=== PATIENT | male | born 1985 | race Two or more races ===

== ENCOUNTER 2018-04-23 12:11 | Emergency (ER) | payer MEDICAID, OTHER ==
[2018-04-23 12:44] VITALS: BP 141/85; PULSE 89; RESP 18; TEMP 98.1
--- NOTE | 2018-04-23 13:47 | XR ---
EXAMINATION TYPE: XR chest 2V DATE OF EXAM: 04/23/2018 COMPARISON: NONE HISTORY: Productive cough and congestion TECHNIQUE: Frontal and lateral views of the chest are obtained. FINDINGS: There is diffuse minimal peribronchial cuffing. There is no focal air space opacity, pleura l effusion, or pneumothorax seen. The cardiac silhouette size is within normal limits. The osseous structures are intact. Curvilinear opacity near the left cardiophrenic angle is likely related to ar tifact as this is not persistent on the lateral view. IMPRESSION: No focal consolidation to suggest pneumonia. Minimal peribronchial cuffing may relate to bronchitis.
--- NOTE | 2018-04-23 14:03 | ED ---
General Adult HPI - General Chief complaint: Upper Respiratory Infection Stated complaint: cough, sinus pressure Time Seen by Provider: 04/23/18 14:02 Source: patient, RN notes reviewed Mode of arrival: ambulatory Limitations: no limitations - History of Present Illness Initial comments: 32-year-old male presents to the emergency department for a chief complaint of productive cough 3 weeks. Patient states his fiance had been sick as well as his child. He states that shortly after the persistent nasal congestion as well for the past 3 weeks. He denies any hemoptysis, recent travel, leg swelling. Patient does have a history of pulmonary embolisms, currently on Coumadin. He denies any significant shortness of breath or chest pain. Patient states he had a low-grade fever for about 2 days when this first started 3 weeks ago but has not had a fever since that time. Patient has no other complaints at this time including shortness of breath, chest pain, abdominal pain, nausea or vomiting, headache, or visual changes. - Related Data Home Medications Medication Instructions Recorded Confirmed Warfarin [Coumadin] 5 mg PO SUMO 04/12/17 04/12/17 Warfarin [Coumadin] 7.5 mg PO TUWETHFRSA 04/12/17 04/12/17 Previous Rx's Medication Instructions Recorded Azithromycin [Zithromax Z-pack] 250 mg PO DIRECTED #6 tab 04/23/18 Allergies Allergy/AdvReac Type Severity Reaction Status Date / Time Penicillins Allergy Anaphylaxis Verified 04/23/18 12:43 Sulfa (Sulfonamide Allergy Itching Verified 04/23/18 12:43 Antibiotics) Review of Systems ROS Statement: Those systems with pertinent positive or pertinent negative responses have been documented in the HPI. ROS Other: All systems not noted in ROS Statement are negative. Past Medical History Past Medical History: Pulmonary Embolus (PE) Additional Past Medical History / Comment(s): 2010 BLOOD CLOT AFTER HEMORRHOID SX, HAD AN IVC FILTER INSERTED BUT SHORTLY AFTER THAT WAS FOUND TO HAVE 2 BLOOD CLOTS IN EACH LUNG." IT WAS FOUND THAT THE IVC FILTER WAS MISS PLACED AND DID' NT FUNCTION INTENDED.SO PT WAS CONTINUED ON BLOOD THINNERS. "I WAS TESTED FOR FACTOR FIVE-THEY DID A HOLE PANEL, IT WAS NEG. MOM AND AUNT HAVE LACK OF ABILTY TO CLOT.HX BIPOLAR, PNE X3, SEASONAL ALLERGIES History of Any Multi-Drug Resistant Organisms: None Reported Additional Past Surgical History / Comment(s): IVC filter Past Anesthesia/Blood Transfusion Reactions: Motion Sickness Past Psychological History: Bipolar Smoking Status: Never smoker Past Alcohol Use History: None Reported Past Drug Use History: None Reported - Past Family History Father History Unknown: Yes Mother Additional Family Medical History / Comment(s): "LACK OF ABILTY TO CLOT", SMOKER , ALCOHOLIC, ANX/DEPRESSION, GLAUCOMA, BREAST CA, General Exam Limitations: no limitations General appearance: alert, in no apparent distress Head exam: Present: atraumatic, normocephalic, normal inspection Eye exam: Present: normal appearance, PERRL, EOMI. Absent: scleral icterus, conjunctival injection, periorbital swelling ENT exam: Present: normal exam, normal oropharynx, mucous membranes moist, TM's normal bilaterally (nonerythematous, nonbuldging.), normal external ear exam Neck exam: Present: normal inspection, full ROM. Absent: tenderness, meningismus, lymphadenopathy Respiratory exam: Present: wheezes (minimal wheeze noted). Absent: respiratory distress, rales, rhonchi, stridor Cardiovascular Exam: Present: regular rate, normal rhythm, normal heart sounds. Absent: systolic murmur, diastolic murmur, rubs, gallop, clicks GI/Abdominal exam: Present: soft, normal bowel sounds. Absent: distended, tenderness, guarding, rebound, rigid Extremities exam: Absent: calf tenderness (no calf tenderness, erythema, edema, or pain, negative huang sign) Neurological exam: Present: alert, oriented X3, CN II-XII intact Psychiatric exam: Present: normal affect, normal mood Course Vital Signs 04/23/18 12:40 Temperature 98.1 F Pulse Rate 89 Respiratory 18 Rate Blood Pressure 141/85 O2 Sat by Pulse 99 Oximetry Medical Decision Making - Medical Decision Making 32-year-old male presents to the emergency department for a chief complaint of productive cough and nasal congestion 3 weeks. Patient states he is coughing up phlegm. He denies history of smoking. He admits to childhood exercise- induced asthma but denies any asthma in adulthood. Patient does have a history of pulmonary embolisms with an IVC filter placed and on Coumadin. Patient states this does not feel like a pulmonary embolism. He states he is not short of breath or has any significant chest pain. No recent travel, leg swelling, hemoptysis. Vitals are within acceptable limits, pulse 89, [id number], 99% on room air. Blood pressure mildly hypertensive, patient asymptomatic. On exam patient is well-appearing. Respirations are even and unlabored. He is wearing a mask. Lungs have minimal wheeze noted. Chest x-ray shows no focal consolidation to suggest pneumonia. There is minimal peribronchial cuffing that may relate bronchitis. There is an opacity near the left cardiophrenic angle that is likely artifact. Report and image were reviewed by myself and Dr. Zacarias. At this time as patient has had symptoms for 3 weeks he will be treated with antibiotics. He has Mucinex and other [id number] medications at home that he will use as well. He will follow up with primary care. He should wear to return here if he has any worsening symptoms such as shortness of breath. Discussed with dr zacarias. Disposition Clinical Impression: Cough Disposition: HOME SELF-CARE Condition: Good Instructions: Upper Respiratory Infection (ED) Additional Instructions: Please take antibiotic as directed. Please follow-up with primary care in 1-2 days. Return to the emergency department if you have any worsening symptoms. Prescriptions: Azithromycin [Zithromax Z-pack] 250 mg PO DIRECTED #6 tab Is patient prescribed a controlled substance at d/c from ED?: No Referrals: Arthur Malone MD [Primary Care Provider] - 1-2 days Time of Disposition: 14:23
== END 2018-04-23 15:08 | disposition home or self-care (01) ==
LOC: EC 12:11
DX: R05 Cough (principal); R03.0 Elevated blood-pressure reading, without diagnosis of hypertension; R06.2 Wheezing; R09.81 Nasal congestion; Z79.01 Long term (current) use of anticoagulants; Z88.0 Allergy status to penicillin; Z88.2 Allergy status to sulfonamides; Z86.711 Personal history of pulmonary embolism; Z95.828 Presence of other vascular implants and grafts
CPT/HCPCS: 71046; 99283

== ENCOUNTER 2018-06-10 13:04 | Emergency (ER) | payer MEDICAID, OTHER ==
[2018-06-10 13:13] VITALS: BP 129/92; PULSE 94; RESP 18; TEMP 98.2
--- NOTE | 2018-06-10 13:28 | ED ---
Fall HPI - General Chief Complaint: Fall Stated Complaint: [facility]-Fall Time Seen by Provider: 06/10/18 13:18 Source: patient Mode of arrival: ambulatory - History of Present Illness Initial Comments: This is a 33-year-old male the ER status post fall. Patient is on Coumadin. Patient fell backwards from standing landing on his buttocks falling back and hitting his head. With some neck pain. Symptoms occurred about 4 hours prior to arrival. Patient has no loss of bowel or bladder lower does feel like he has to bowel movement. Patient is and laboratory is able to ambulate but feels better when he is not moving. Patient has not taken any Motrin or Tylenol currently at this point. MD Complaint: fall -: hour(s) (5) Fall From: standing When Fall Occurred: 4-6 hours [employer] Fall Witnessed: yes, by bystander Place Fall Occurred: work Loss of Consciousness: none Prolonged Down Time?: no Symptoms Prior to Fall: none Location: head, back, pelvis, buttocks Severity: moderate Severity scale (1-10): 4 Quality: dull, aching Context: tripped/slipped Associated Symptoms: denies - Related Data Home Medications Medication Instructions Recorded Confirmed Warfarin [Coumadin] 5 mg PO SUMO 04/12/17 04/12/17 Warfarin [Coumadin] 7.5 mg PO TUWETHFRSA 04/12/17 04/12/17 Previous Rx's Medication Instructions Recorded Azithromycin [Zithromax Z-pack] 250 mg PO DIRECTED #6 tab 04/23/18 Allergies Allergy/AdvReac Type Severity Reaction Status Date / Time Penicillins Allergy Anaphylaxis Verified 06/10/18 13:13 Sulfa (Sulfonamide Allergy Itching Verified 06/10/18 13:13 Antibiotics) Review of Systems ROS Statement: Those systems with pertinent positive or pertinent negative responses have been documented in the HPI. ROS Other: All systems not noted in ROS Statement are negative. Past Medical History Past Medical History: Pulmonary Embolus (PE) Additional Past Medical History / Comment(s): 2010 BLOOD CLOT AFTER HEMORRHOID SX, HAD AN IVC FILTER INSERTED BUT SHORTLY AFTER THAT WAS FOUND TO HAVE 2 BLOOD CLOTS IN EACH LUNG." IT WAS FOUND THAT THE IVC FILTER WAS MISS PLACED AND DID' NT FUNCTION INTENDED.SO PT WAS CONTINUED ON BLOOD THINNERS. "I WAS TESTED FOR FACTOR FIVE-THEY DID A HOLE PANEL, IT WAS NEG. MOM AND AUNT HAVE LACK OF ABILTY TO CLOT.HX BIPOLAR, PNE X3, SEASONAL ALLERGIES History of Any Multi-Drug Resistant Organisms: None Reported Additional Past Surgical History / Comment(s): IVC filter Past Anesthesia/Blood Transfusion Reactions: Motion Sickness Past Psychological History: Bipolar Smoking Status: Never smoker Past Alcohol Use History: None Reported Past Drug Use History: None Reported - Past Family History Father History Unknown: Yes Mother Additional Family Medical History / Comment(s): "LACK OF ABILTY TO CLOT", SMOKER , ALCOHOLIC, ANX/DEPRESSION, GLAUCOMA, BREAST CA, General Exam Limitations: no limitations General appearance: alert, in no apparent distress Head exam: Present: atraumatic, normocephalic, normal inspection Eye exam: Present: normal appearance, PERRL, EOMI. Absent: scleral icterus, conjunctival injection, periorbital swelling ENT exam: Present: normal exam, mucous membranes moist Neck exam: Present: normal inspection. Absent: tenderness, meningismus, lymphadenopathy Respiratory exam: Present: normal lung sounds bilaterally. Absent: respiratory distress, wheezes, rales, rhonchi, stridor Cardiovascular Exam: Present: regular rate, normal rhythm, normal heart sounds. Absent: systolic murmur, diastolic murmur, rubs, gallop, clicks GI/Abdominal exam: Present: soft, normal bowel sounds. Absent: distended, tenderness, guarding, rebound, rigid Extremities exam: Present: normal inspection, full ROM, normal capillary refill. Absent: tenderness, pedal edema, joint swelling, calf tenderness Back exam: Present: normal inspection Neurological exam: Present: alert, oriented X3, CN II-XII intact Psychiatric exam: Present: normal affect, normal mood Skin exam: Present: warm, dry, intact, normal color. Absent: rash Course Vital Signs 06/10/18 13:10 Temperature 98.2 F Pulse Rate 94 Respiratory 18 Rate Blood Pressure 129/92 O2 Sat by Pulse 96 Oximetry - Reevaluation(s) Reevaluation #1: 06/10/18 15:13 Medical record reviewed Reevaluation #2: 06/10/18 15:13 Pain is controlled Medical Decision Making - Medical Decision Making 33 male the ER for evaluation status post fall fall with back and his had CT scans are negative and patient can be discharged home - Radiology Data Radiology results: report reviewed (CT brain C-spine and lumbosacral is negative for acute disease), image reviewed Disposition Clinical Impression: Fall, Back pain, Back contusion Disposition: HOME SELF-CARE Condition: Good Instructions (If sedation given, give patient instructions): Acute Low Back Pain (ED) Is patient prescribed a controlled substance at d/c from ED?: No Referrals: Arthur Malone MD [Primary Care Provider] - 1-2 days
[2018-06-10] MEDS ORDERED: MORPHINE SULFATE 4 MG/ML SYRINGE IM STA (13:43)
--- NOTE | 2018-06-10 14:56 | CT ---
EXAMINATION TYPE: CT brain neal wo con DATE OF EXAM: 06/10/2018 COMPARISON: None HISTORY: Fall landing on bottom. Back pain. Headache and neck pain. CT DLP: 1379.5 mGycm, Automated exposure control for dose reduction was used. CONTRAST: Patient injected with 0 mL of Isovue 300. CT of the brain is performed utilizing 3 mm thick sections through the posterior fossa and 3 mm thick sections through the remaining calvarium. Study is performed within 24 hours of arrival to the hospital. No abnormal hyperdensity is present to suggest an acute intracranial hemorrhage. No mass lesion is evident. No acute infarcts are evident. Ventricles and sulci are appropriate for the patient age. Paranasal sinuses and mastoid air cells within the [id number] are clear. IMPRESSIONS: 1. Normal CT brain. CT cervical spine. COMPARISON: None CT of the cervical spine is performed in the axial plane at 2 mm thick sections. Reconstructed image s in the coronal, and sagittal plane are reviewed on the computer. No acute fractures are evident. There is a diffuse kyphosis centered at approximately C4-5. Disc heights are preserved. Vertebral body heights are preserved. No spinal canal stenosis is evident. No neural foraminal stenosis is evident. IMPRESSIONS: 1. Mild kyphosis which can be related to patient positioning or muscle spasm. 2. No acute osseous abnormality.
--- NOTE | 2018-06-10 15:00 | CT ---
EXAMINATION TYPE: CT sacrum wo con DATE OF EXAM: 06/10/2018 COMPARISON: None HISTORY: Fall landing on bottom. Back pain. Headache and neck pain. CT DLP: 931.3 mGycm Automated exposure control for dose reduction was used. Technique: Axial images 3 mm thick sections. Reconstructed images in the coronal plane. FINDINGS: L5-S1 disc space is normal. Alignment is normal. No acute fractures are identified. Sacroiliac joints are normal. Sacral canal is patent. IMPRESSION: NORMAL CT SACRUM AND COCCYX
--- NOTE | 2018-06-10 15:02 | CT ---
EXAMINATION TYPE: CT lumbar spine wo con DATE OF EXAM: 06/10/2018 COMPARISON: None HISTORY: Fall landing on bottom. Back pain. Headache and neck pain. CT DLP: 931.3 mGycm CONTRAST: None TECHNIQUE: CT of the lumbar spine is performed on a spiral scan at 3 mm thick sections. Reconstructed images are performed in the coronal and sagittal planes. FINDINGS: T12-L1: No focal disc herniation or significant disc bulge is evident. No spinal canal stenosis or neural foraminal stenosis is present. L1-L2: No focal disc herniation or significant disc bulge is evident. No spinal canal stenosis or n eural foraminal stenosis is present L2-L3: No focal disc herniation or significant disc bulge is evident. No spinal canal stenosis or n eural foraminal stenosis is present L3-L4: No focal disc herniation or significant disc bulge is evident. No spinal canal stenosis or n eural foraminal stenosis is present L4-L5: No focal disc herniation or significant disc bulge is evident. No spinal canal stenosis or n eural foraminal stenosis is present L5-S1: No focal disc herniation or significant disc bulge is evident. No spinal canal stenosis or n eural foraminal stenosis is present Vertebral alignment appears normal. Inferior vena cava filter is noted. IMPRESSION: No acute osseous abnormality.
[2018-06-10] MEDS ORDERED: Acetaminophen-Codeine 300-30mg TAB PO STA (15:14)
[2018-06-10] MEDS ORDERED: ACET/COD 300 MG/30 MG STARTER PACK 6 TAB BTL PO STA (15:14)
== END 2018-06-10 15:37 | disposition home or self-care (01) ==
LOC: EC 13:04
DX: S30.0XXA Contusion of lower back and pelvis, initial encounter (principal); M54.2 Cervicalgia; R51 Headache; Z88.0 Allergy status to penicillin; Z88.2 Allergy status to sulfonamides; Z79.01 Long term (current) use of anticoagulants; Z86.711 Personal history of pulmonary embolism; Z95.828 Presence of other vascular implants and grafts; W00.0XXA Fall on same level due to ice and snow, initial encounter; Y92.69 Other specified industrial and construction area as the place of occurrence of the external cause; Y99.0 Civilian activity done for income or pay
CPT/HCPCS: 72125; 72131; 70450; 72192; 99284; 96372; J2270

== ENCOUNTER 2018-12-03 10:52 | Emergency (ER) | payer OTHER ==
[2018-12-03] MEDS ORDERED: SODIUM CHLORIDE 0.9% 1,000 ML IV ONE (11:49)
[2018-12-03] MEDS ORDERED: METOCLOPRAMIDE 5 MG/ML 2 ML VIAL IVP STA (11:49)
[2018-12-03] MEDS ORDERED: SODIUM CHLORIDE 0.9% 1,000 ML IV STA (11:49)
[2018-12-03] MEDS ORDERED: diphenhydrAMINE 50 MG/ML 1 ML VIAL IVP STA (11:49)
[2018-12-03] MEDS ORDERED: SODIUM CHLORIDE 0.9% 1,000 ML IV SCH (12:00)
--- NOTE | 2018-12-03 12:08 | ED ---
Headache HPI - General Chief Complaint: Headache Stated Complaint: Migraine Time Seen by Provider: 12/03/18 11:35 Source: RN notes reviewed, old records reviewed Mode of arrival: ambulatory Limitations: no limitations - History of Present Illness Initial Comments: This Patient is a 33-year-old male with a history of blood clots in the past on Coumadin. He presents today with complaints of fever, migraine bodyaches and chills. Patient reports that he's been having these symptoms since Sunday. He was seems to related to work exposure to turpentine. Patient is that he is having some cough and congestion. He complains of a left-sided headache behind his eye. Patient reports his headache is worse with bright lights.Patient denies any recent fever, chills, shortness of breath, chest pain, back pain, abdominal pain, nausea vomiting, numbness or tingling, dysuria or hematuria, constipation or diarrhea, headaches or visual changes, or any other current symptoms - Related Data Home Medications Medication Instructions Recorded Confirmed Warfarin [Coumadin] 5 mg PO SUMO 04/12/17 12/03/18 Warfarin Sodium 7.5 mg PO TUWETHFRSA 12/03/18 12/03/18 Allergies Allergy/AdvReac Type Severity Reaction Status Date / Time Penicillins Allergy Anaphylaxis Verified 12/03/18 12:00 Sulfa (Sulfonamide Allergy Itching Verified 12/03/18 12:00 Antibiotics) Review of Systems ROS Statement: Those systems with pertinent positive or pertinent negative responses have been documented in the HPI. ROS Other: All systems not noted in ROS Statement are negative. Past Medical History Past Medical History: Pulmonary Embolus (PE) Additional Past Medical History / Comment(s): 2010 BLOOD CLOT AFTER HEMORRHOID SX, HAD AN IVC FILTER INSERTED BUT SHORTLY AFTER THAT WAS FOUND TO HAVE 2 BLOOD CLOTS IN EACH LUNG." IT WAS FOUND THAT THE IVC FILTER WAS MISS PLACED AND DID'NT FUNCTION INTENDED.SO PT WAS CONTINUED ON BLOOD THINNERS. "I WAS TESTED FOR FACTOR FIVE-THEY DID A HOLE PANEL, IT WAS NEG. MOM AND AUNT HAVE LACK OF ABILTY TO CLOT.HX BIPOLAR, PNE X3, SEASONAL ALLERGIES History of Any Multi-Drug Resistant Organisms: None Reported Additional Past Surgical History / Comment(s): IVC filter Past Anesthesia/Blood Transfusion Reactions: Motion Sickness Past Psychological History: Bipolar Smoking Status: Never smoker Past Alcohol Use History: None Reported Past Drug Use History: None Reported - Past Family History Father History Unknown: Yes Mother Additional Family Medical History / Comment(s): "LACK OF ABILTY TO CLOT", SMOKER, ALCOHOLIC, ANX/DEPRESSION, GLAUCOMA, BREAST CA, General Exam - General Exam Comments Initial Comments: 33-year-old male. Alert and oriented. No distress. Limitations: no limitations General appearance: alert, in no apparent distress Head exam: Present: atraumatic, normocephalic, normal inspection Eye exam: Present: normal appearance, PERRL, EOMI. Absent: scleral icterus, conjunctival injection, periorbital swelling ENT exam: Present: normal exam, mucous membranes moist Neck exam: Present: normal inspection. Absent: tenderness, meningismus, lymphadenopathy Respiratory exam: Present: normal lung sounds bilaterally. Absent: respiratory distress, wheezes, rales, rhonchi, stridor Cardiovascular Exam: Present: regular rate, normal rhythm, normal heart sounds. Absent: systolic murmur, diastolic murmur, rubs, gallop, clicks GI/Abdominal exam: Present: soft Extremities exam: Present: normal inspection, full ROM, normal capillary refill. Absent: tenderness, pedal edema, joint swelling, calf tenderness Back exam: Present: normal inspection Neurological exam: Present: alert, oriented X3, CN II-XII intact Psychiatric exam: Present: normal affect, normal mood Course Vital Signs 12/03/18 12/03/18 12/03/18 11:11 13:48 14:44 Temperature 98.7 F 98.6 F Pulse Rate 90 88 82 Respiratory 16 18 18 Rate Blood Pressure 120/83 127/81 122/87 O2 Sat by Pulse 98 98 98 Oximetry 12/03/18 14:45 Temperature 98.6 F Pulse Rate 82 Respiratory 18 Rate Blood Pressure 122/87 O2 Sat by Pulse 98 Oximetry Medical Decision Making - Medical Decision Making 33-year-old male presents with history of being on Coumadin not taking inappropriately complaining of headaches, body aches. He states his symptoms started on Sunday after being exposed to Patient and her. Patient this time has been having no neurological deficits. Vital signs are stable. Is complaining of a migraine type of prescription of headache behind the left eye. CT of the brain was completely negative for any acute process. His INR is not therapeutic level. Discussed doubling his dose of Coumadin. Patient labwork otherwise is unremarkable. I discussed appropriate PCP follow-up. All questions answered return parameters were discussed. - Lab Data Result diagrams: 12/03/18 12:07 12/03/18 12:07 Lab Results 12/03/18 12/03/18 12/03/18 Range/Units 12:07 12:07 12:07 WBC 5.3 (3.8-10.6) k/uL RBC 5.00 (4.30-5.90) m/uL Hgb 15.4 (13.0-17.5) gm/dL Hct 45.3 (39.0-53.0) % MCV 90.5 (80.0-100.0) fL MCH 30.7 (25.0-35.0) pg MCHC 34.0 (31.0-37.0) g/dL RDW 15.0 (11.5-15.5) % Plt Count 174 (150-450) k/uL Neutrophils % (Manual) 66 % Lymphocytes % (Manual) 18 % Monocytes % (Manual) 15 % Eosinophils % (Manual) 1 % Neutrophils # (Manual) 3.50 (1.3-7.7) k/uL Lymphocytes # (Manual) 0.95 L (1.0-4.8) k/uL Monocytes # (Manual) 0.80 (0-1.0) k/uL Eosinophils # (Manual) 0.05 (0-0.7) k/uL Nucleated RBCs 0 (0-0) /100 WBC Manual Slide Review Performed RBC Morphology Normal PT 11.4 (9.0-12.0) sec INR 1.1 (<1.2) APTT 26.4 (22.0-30.0) sec Sodium 141 (137-145) mmol/L Potassium 4.2 (3.5-5.1) mmol/L Chloride 107 (98-107) mmol/L Carbon Dioxide 25 (22-30) mmol/L Anion Gap 9 mmol/L BUN 11 (9-20) mg/dL Creatinine 0.83 (0.66-1.25) mg/dL Est GFR (CKD-EPI)AfAm >90 (>60 ml/min/1.73 sqM) Est GFR (CKD-EPI)NonAf >90 (>60 ml/min/1.73 sqM) Glucose 86 (74-99) mg/dL Calcium 9.2 (8.4-10.2) mg/dL Total Bilirubin 1.8 H (0.2-1.3) mg/dL AST 37 (17-59) U/L ALT 54 (21-72) U/L Alkaline Phosphatase 86 (38-126) U/L Total Protein 7.4 (6.3-8.2) g/dL Albumin 4.3 (3.5-5.0) g/dL Urine Color Urine Appearance (Clear) Urine pH (5.0-8.0) Ur Specific Anna (1.001-1.035) Urine Protein (Negative) Urine Glucose (UA) (Negative) Urine Ketones (Negative) Urine Blood (Negative) Urine Nitrite (Negative) Urine Bilirubin (Negative) Urine Urobilinogen (<2.0) mg/dL Ur Leukocyte Esterase (Negative) 12/03/18 Range/Units 13:40 WBC (3.8-10.6) k/uL RBC (4.30-5.90) m/uL Hgb (13.0-17.5) gm/dL Hct (39.0-53.0) % MCV (80.0-100.0) fL MCH (25.0-35.0) pg MCHC (31.0-37.0) g/dL RDW (11.5-15.5) % Plt Count (150-450) k/uL Neutrophils % (Manual) % Lymphocytes % (Manual) % Monocytes % (Manual) % Eosinophils % (Manual) % Neutrophils # (Manual) (1.3-7.7) k/uL Lymphocytes # (Manual) (1.0-4.8) k/uL Monocytes # (Manual) (0-1.0) k/uL Eosinophils # (Manual) (0-0.7) k/uL Nucleated RBCs (0-0) /100 WBC Manual Slide Review RBC Morphology PT (9.0-12.0) sec INR (<1.2) APTT (22.0-30.0) sec Sodium (137-145) mmol/L Potassium (3.5-5.1) mmol/L Chloride (98-107) mmol/L Carbon Dioxide (22-30) mmol/L Anion Gap mmol/L BUN (9-20) mg/dL Creatinine (0.66-1.25) mg/dL Est GFR (CKD-EPI)AfAm (>60 ml/min/1.73 sqM) Est GFR (CKD-EPI)NonAf (>60 ml/min/1.73 sqM) Glucose (74-99) mg/dL Calcium (8.4-10.2) mg/dL Total Bilirubin (0.2-1.3) mg/dL AST (17-59) U/L ALT (21-72) U/L Alkaline Phosphatase (38-126) U/L Total Protein (6.3-8.2) g/dL Albumin (3.5-5.0) g/dL Urine Color Light Yellow Urine Appearance Clear (Clear) Urine pH 6.0 (5.0-8.0) Ur Specific Anna 1.009 (1.001-1.035) Urine Protein Negative (Negative) Urine Glucose (UA) Negative (Negative) Urine Ketones Negative (Negative) Urine Blood Negative (Negative) Urine Nitrite Negative (Negative) Urine Bilirubin Negative (Negative) Urine Urobilinogen <2.0 (<2.0) mg/dL Ur Leukocyte Esterase Negative (Negative) 12/03/18 12:41 EKG performed at 1228 shows normal sinus rhythm with possible left atrial enlargement. Cannot rule out anterior infarct age undetermined. Abnormal EKG. Ventricular 80 beats were minute. Pulse 134 ms. QS duration 90 ms QT QTc is 370/447 ms. - Radiology Data Radiology results: report reviewed CT of the brain is negative for any acute process. Disposition Clinical Impression: Headache, Subtherapeutic anticoagulation, Body aches Disposition: HOME SELF-CARE Condition: Good Instructions (If sedation given, give patient instructions): Acute Headache (ED) Additional Instructions: Double dose of Coumadin for the next day. Have the INR rechecked within the next week. Follow-up with Dr. Malone. Return to the emergency department if any alarming signs or symptoms occur. Is patient prescribed a controlled substance at d/c from ED?: No Referrals: Arthur Malone MD [Primary Care Provider] - 1-2 days Time of Disposition: 14:27
[2018-12-03 12:31] LABS: HCT 45.3 % (39.0-53.0); HGB 15.4 gm/dL (13.0-17.5); MCH 30.7 pg (25.0-35.0); MCV 90.5 fL (80.0-100.0); Mean Platelet Volume 8.4; Platelet Count 174 k/uL (150-450); WBC 5.3 k/uL (3.8-10.6)
[2018-12-03 12:33] LABS: Glucose 86 mg/dL (74-99)
[2018-12-03 12:34] LABS: ALT 54 U/L (21-72); AST 37 U/L (17-59); African American GFR (CKD) >90 (>60 ml/min/1.73 sqM); Albumin 4.3 g/dL (3.5-5.0); Alkaline Phosphatase 86 U/L (38-126); Anion Gap 9 mmol/L; Blood Urea Nitrogen 11 mg/dL (9-20); Calcium 9.2 mg/dL (8.4-10.2); Carbon Dioxide 25 mmol/L (22-30); Chloride 107 mmol/L (98-107); INR 1.1 (<1.2); Partial Thromboplastin Time 26.4 sec (22.0-30.0); Potassium 4.2 mmol/L (3.5-5.1); Prothrombin Time 11.4 sec (9.0-12.0); Sodium 141 mmol/L (137-145); Total Bilirubin 1.8 mg/dL (0.2-1.3); Total Protein 7.4 g/dL (6.3-8.2)
--- NOTE | 2018-12-03 13:23 | CT ---
EXAMINATION TYPE: CT brain wo con DATE OF EXAM: 12/03/2018 COMPARISON: 06/10/2018 HISTORY: headache, dizziness, light sensitivity CT DLP: 1099.4 mGycm. Automated Exposure Control for Dose Reduction was Utilized. TECHNIQUE: CT scan of the head is performed without contrast. FINDINGS: There is no acute intracranial hemorrhage, mass effect, or midline shift identified. The ventricles and sulci are within normal limits in size. The globes are intact and the visualized sin uses are clear. IMPRESSION: No acute intracranial hemorrhage, mass effect, or midline shift is seen.
[2018-12-03] MEDS ORDERED: KETOROLAC 30 MG/ML 1 ML VIAL IVP STA (13:28)
[2018-12-03 13:50] VITALS: RESP 18
[2018-12-03 14:07] LABS: Appearance,Urine Clear (Clear); Bilirubin,Urine Negative (Negative); Blood,Urine Negative (Negative); Color,Urine Light Yellow; Glucose,Urine (UA) Negative (Negative); Ketones,Urine Negative (Negative); Leukocyte Esterase,Urine Negative (Negative); Nitrite,Urine Negative (Negative); Protein,Urine Negative (Negative); Specific Gravity,Urine 1.009 (1.001-1.035); Urobilinogen,Urine <2.0 mg/dL (<2.0)
[2018-12-03 14:07] LABS: Eosinophils # (M) 0.05 k/uL (0-0.7); Lymphocytes # (M) 0.95 k/uL (1.0-4.8); Neutrophils % (M) 66 %; Nucleated Red Blood Cells 0 /100 WBC (0-0); Total Cells Counted 100
[2018-12-03] MEDS ORDERED: ORPHENADRINE 30 MG/ML 2 ML VIAL IVP STA (14:26)
[2018-12-03 14:45] VITALS: BP 122/87; PULSE 82; TEMP 98.6
== END 2018-12-03 14:45 | disposition home or self-care (01) ==
LOC: EC 10:52
DX: R51 Headache (principal); R52 Pain, unspecified; R50.9 Fever, unspecified; R05 Cough; R09.89 Other specified symptoms and signs involving the circulatory and respiratory systems; Z88.0 Allergy status to penicillin; Z88.2 Allergy status to sulfonamides; Z79.01 Long term (current) use of anticoagulants; Z86.711 Personal history of pulmonary embolism; Z86.718 Personal history of other venous thrombosis and embolism; Z95.828 Presence of other vascular implants and grafts
CPT/HCPCS: 36415; 93005; 80053; 85025; 85610; 85730; 81003; 70450; 99285; 96374; 96375 ×3; 96361 ×2; J1200; J2360; J2765; J1885

== ENCOUNTER 2019-02-13 00:42 | Emergency (ER) | payer OTHER ==
[2019-02-13 00:56] VITALS: BP 151/97; PULSE 72; RESP 20; TEMP 98.8
[2019-02-13] MEDS ORDERED: CLINDAMYCIN 150 MG CAP PO STA (01:13)
[2019-02-13] MEDS ORDERED: ACET/COD 300 MG/30 MG STARTER PACK 6 TAB BTL PO STA (01:14)
--- NOTE | 2019-02-13 01:16 | ED ---
General Adult HPI - General Chief complaint: Neck Pain/Injury Stated complaint: Swollen neck Time Seen by Provider: 02/13/19 01:01 Source: patient, RN notes reviewed Mode of arrival: ambulatory Limitations: no limitations - History of Present Illness Initial comments: 33-year-old male presents emergency from chief complaint of right-sided abdominal swelling. Patient states this started earlier today with some burning sensation make the right side of his tongue. Patient states he notices the right side of his jaw, neck or swelling. Patient states is more painful at this time. No difficulty swallowing no sore throat. Patient states he has no dentition is painful no loose dentition denies any trauma. Patient has no headache no dizziness no fevers or chills. - Related Data Home Medications Medication Instructions Recorded Confirmed Warfarin [Coumadin] 5 mg PO SUMO 04/12/17 02/13/19 Warfarin Sodium 7.5 mg PO TUWETHFRSA 12/03/18 02/13/19 Previous Rx's Medication Instructions Recorded Clindamycin HCl 300 mg PO Q6HR #40 cap 02/13/19 Ibuprofen [Motrin] 600 mg PO Q8HR PRN #30 tab 02/13/19 Allergies Allergy/AdvReac Type Severity Reaction Status Date / Time Penicillins Allergy Anaphylaxis Verified 12/03/18 12:00 Sulfa (Sulfonamide Allergy Itching Verified 12/03/18 12:00 Antibiotics) Review of Systems ROS Statement: Those systems with pertinent positive or pertinent negative responses have been documented in the HPI. ROS Other: All systems not noted in ROS Statement are negative. Past Medical History Past Medical History: Pulmonary Embolus (PE) Additional Past Medical History / Comment(s): 2010 BLOOD CLOT AFTER HEMORRHOID SX, HAD AN IVC FILTER INSERTED BUT SHORTLY AFTER THAT WAS FOUND TO HAVE 2 BLOOD CLOTS IN EACH LUNG." IT WAS FOUND THAT THE IVC FILTER WAS MISS PLACED AND DID'NT FUNCTION INTENDED.SO PT WAS CONTINUED ON BLOOD THINNERS. "I WAS TESTED FOR FACTOR FIVE-THEY DID A HOLE PANEL, IT WAS NEG. MOM AND AUNT HAVE LACK OF ABILTY TO CLOT.HX BIPOLAR, PNE X3, SEASONAL ALLERGIES History of Any Multi-Drug Resistant Organisms: None Reported Additional Past Surgical History / Comment(s): IVC filter Past Anesthesia/Blood Transfusion Reactions: Motion Sickness Past Psychological History: Bipolar Smoking Status: Never smoker Past Alcohol Use History: None Reported Past Drug Use History: None Reported - Past Family History Father History Unknown: Yes Mother Additional Family Medical History / Comment(s): "LACK OF ABILTY TO CLOT", SMOKER, ALCOHOLIC, ANX/DEPRESSION, GLAUCOMA, BREAST CA, General Exam Limitations: no limitations General appearance: alert, in no apparent distress Head exam: Present: atraumatic, normocephalic, normal inspection Eye exam: Present: normal appearance, PERRL, EOMI. Absent: scleral icterus, conjunctival injection, periorbital swelling ENT exam: Present: mucous membranes moist, TM's normal bilaterally, normal external ear exam, other (Right submandibular swelling). Absent: normal exam, normal oropharynx (Tenderness underneath the right side of the tongue) Neck exam: Present: normal inspection, full ROM. Absent: tenderness, meningismus, lymphadenopathy Respiratory exam: Present: normal lung sounds bilaterally. Absent: respiratory distress, wheezes, rales, rhonchi, stridor Cardiovascular Exam: Present: regular rate, normal rhythm, normal heart sounds. Absent: systolic murmur, diastolic murmur, rubs, gallop, clicks Course Vital Signs 02/13/19 00:52 Temperature 98.8 F Pulse Rate 72 Respiratory 20 Rate Blood Pressure 151/97 O2 Sat by Pulse 96 Oximetry Medical Decision Making - Medical Decision Making Patient has submandibular swelling consistent with sialoadenitis. This may be infectious versus obstructive flow. Patient was started on clindamycin as he has an ALLERGY to amoxicillin patient was given a starter pack of pain meds will follow-up with primary care physician tomorrow return for any worsening symp toms. Disposition Clinical Impression: Sialoadenitis Disposition: HOME SELF-CARE Condition: Stable Instructions (If sedation given, give patient instructions): Sialoadenitis (ED) Additional Instructions: Please return to the Emergency Department if symptoms worsen or any other concerns. Prescriptions: Clindamycin HCl 300 mg PO Q6HR #40 cap Ibuprofen [Motrin] 600 mg PO Q8HR PRN #30 tab PRN Reason: Pain Is patient prescribed a controlled substance at d/c from ED?: No Referrals: Arthur Malone MD [Primary Care Provider] - 1-2 days Time of Disposition: 01:16
== END 2019-02-13 01:25 | disposition home or self-care (01) ==
LOC: EC 00:42
DX: K11.20 Sialoadenitis, unspecified (principal); Z88.0 Allergy status to penicillin; Z88.2 Allergy status to sulfonamides; Z79.01 Long term (current) use of anticoagulants; Z86.711 Personal history of pulmonary embolism
CPT/HCPCS: 99283

== ENCOUNTER 2019-06-02 23:50 | Emergency (ER) | payer OTHER ==
[2019-06-02 23:57] VITALS: RESP 18
[2019-06-03] MEDS ORDERED: KETOROLAC 60 MG/2 ML VIAL IM STA (00:31)
--- NOTE | 2019-06-03 00:58 | ED ---
Back Pain HPI - General Chief Complaint: Back Pain/Injury Stated Complaint: Fall,lt side hip/thigh pain Time Seen by Provider: 06/02/19 23:58 Source: patient Limitations: no limitations - History of Present Illness Initial Comments: Patient is a 33-year-old male presents emergency Department with complaints of left-sided hip pain and low back pain after he fell on ice prior to arrival. He states he was walking on his car and slipped on a patch of ice landing mostly on his left side of his body. Patient states he is having hard time walking secondary to the pain. He has pain in his left knee, upper leg, left hip, low back. He denies any previous surgeries to these areas. He denies hitting his head, no LOC, no nausea no vomiting. He has no other complaints from this fall. Upon arrival his vitals are stable. - Related Data Home Medications Medication Instructions Recorded Confirmed Warfarin [Coumadin] 5 mg PO SUMO 04/12/17 02/13/19 Warfarin Sodium 7.5 mg PO TUWETHFRSA 12/03/18 02/13/19 Previous Rx's Medication Instructions Recorded Clindamycin HCl 300 mg PO Q6HR #40 cap 02/13/19 Ibuprofen [Motrin] 600 mg PO Q8HR PRN #30 tab 02/13/19 Cyclobenzaprine [Flexeril] 5 mg PO BID PRN #10 tablet 06/03/19 Allergies Allergy/AdvReac Type Severity Reaction Status Date / Time Penicillins Allergy Anaphylaxis Verified 06/02/19 23:54 Sulfa (Sulfonamide Allergy Itching Verified 06/02/19 23:54 Antibiotics) Review of Systems ROS Statement: Those systems with pertinent positive or pertinent negative responses have been documented in the HPI. ROS Other: All systems not noted in ROS Statement are negative. Past Medical History Past Medical History: Pulmonary Embolus (PE) Additional Past Medical History / Comment(s): 2010 BLOOD CLOT AFTER HEMORRHOID SX, HAD AN IVC FILTER INSERTED BUT SHORTLY AFTER THAT WAS FOUND TO HAVE 2 BLOOD CLOTS IN EACH LUNG." IT WAS FOUND THAT THE IVC FILTER WAS MISS PLACED AND DID'NT FUNCTION INTENDED.SO PT WAS CONTINUED ON BLOOD THINNERS. "I WAS TESTED FOR FACTOR FIVE-THEY DID A HOLE PANEL, IT WAS NEG. MOM AND AUNT HAVE LACK OF ABILTY TO CLOT.HX BIPOLAR, PNE X3, SEASONAL ALLERGIES History of Any Multi-Drug Resistant Organisms: None Reported Additional Past Surgical History / Comment(s): IVC filter Past Anesthesia/Blood Transfusion Reactions: Motion Sickness Past Psychological History: Bipolar Smoking Status: Never smoker Past Alcohol Use History: None Reported Past Drug Use History: None Reported - Past Family History Father History Unknown: Yes Mother Additional Family Medical History / Comment(s): "LACK OF ABILTY TO CLOT", SMOKER, ALCOHOLIC, ANX/DEPRESSION, GLAUCOMA, BREAST CA, General Exam - General Exam Comments Initial Comments: GENERAL: Well-appearing, well-nourished and in no acute distress. HEAD: Atraumatic, normocephalic. EYES: Pupils equal round and reactive to light, extraocular movements intact, sclera anicteric, conjunctiva are normal. ENT: TMs normal, nares patent, oropharynx clear without exudates. Moist mucous membranes. NECK: Normal range of motion, supple without lymphadenopathy or JVD. LUNGS: Breath sounds clear to auscultation bilaterally and equal. No wheezes rales or rhonchi. HEART: Regular rate and rhythm without murmurs, rubs or gallops. ABDOMEN: Soft, nontender, normoactive bowel sounds. No guarding, no rebound. No masses appreciated. : Deferred EXTREMITIES: Patient's pain with palpation of the left anterior knee, upper leg, lateral left hip. Pain lumbar paraspinals, SI joint area. Patient has decreased range of motion of the left lower extremity secondary to pain. There is no deformity, no swelling. Patient is neurovascularly intact. Sensation is equal in bilateral lower extremities. PSYCH: Normal mood, normal affect. SKIN: Warm, Dry, normal turgor, no rashes or lesions noted. Limitations: no limitations Course Vital Signs 06/02/19 06/03/19 23:54 01:47 Temperature 97.9 F 98.1 F Pulse Rate 87 80 Respiratory 18 18 Rate Blood Pressure 129/83 123/78 O2 Sat by Pulse 97 97 Oximetry Medical Decision Making - Medical Decision Making Patient is a 33-year-old male presenting of a symptom fall on ice complaining of left knee, left hip, low back pain. X-rays revealed no acute fractures or dislocations in the left knee, hip, low back. I discussed these findings with the patient. Patient was given Toradol today in the ER. He will be sent home with a few days of muscle relaxer. He is requesting a work note. He will follow up with his PCP for continued management. He is in agreement with this plan of care. Disposition Clinical Impression: Fall, Left hip pain, Left knee pain, Low back pain Disposition: HOME SELF-CARE Condition: Stable Instructions (If sedation given, give patient instructions): Acute Low Back Pain (ED) Additional Instructions: Please return to the Emergency Department if symptoms worsen or any other concerns. Continue with Motrin or Tylenol for pain relief. May use ice or heat to the areas as well. Follow up with PCP. Prescriptions: Cyclobenzaprine [Flexeril] 5 mg PO BID PRN #10 tablet PRN Reason: Muscle Spasm Is patient prescribed a controlled substance at d/c from ED?: No Referrals: Arthur Malone MD [Primary Care Provider] - 1-2 days
--- NOTE | 2019-06-03 01:10 | XR ---
EXAMINATION TYPE: XR knee complete LT DATE OF EXAM: 06/03/2019 COMPARISON: NONE HISTORY: Fall. Knee pain TECHNIQUE: 3 views FINDINGS: I see no fracture nor dislocation. Joint spaces are fairly normal. There is no sign of knee joint effusion. IMPRESSION: Negative left knee exam.
--- NOTE | 2019-06-03 01:14 | XR ---
EXAMINATION TYPE: XR Hip Complete LT DATE OF EXAM: 06/03/2019 COMPARISON: NONE HISTORY: Fall. Pain. TECHNIQUE: 2 views FINDINGS: I see no fracture nor dislocation. Hip joint space is fairly normal. Sacroiliac joint is in tact. IMPRESSION: Negative left hip exam.
--- NOTE | 2019-06-03 01:14 | XR ---
EXAMINATION TYPE: XR femur LT DATE OF EXAM: 06/03/2019 COMPARISON: NONE HISTORY: Fall. Pain. TECHNIQUE: 4 views FINDINGS: I see no fracture nor dislocation. Knee joint and hip joint are intact. There are no pathol ogic calcifications. IMPRESSION: No fracture seen.
--- NOTE | 2019-06-03 01:15 | XR ---
EXAMINATION TYPE: XR lumbar spine 2 or 3V DATE OF EXAM: 06/03/2019 COMPARISON: NONE HISTORY: Fall. Pain. TECHNIQUE: 3 views FINDINGS: There is inferior vena cava filter noted. Lumbar vertebra have normal spacing and alignment . Posterior elements are intact. There is no compression fracture. Sacroiliac joints appear normal. IMPRESSION: Normal lumbar spine exam.
[2019-06-03 01:48] VITALS: BP 123/78; PULSE 80; TEMP 98.1
== END 2019-06-03 01:48 | disposition home or self-care (01) ==
LOC: EC 23:50
DX: M25.552 Pain in left hip (principal); M25.562 Pain in left knee; M54.5 Low back pain; Z79.01 Long term (current) use of anticoagulants; Z88.0 Allergy status to penicillin; Z88.2 Allergy status to sulfonamides; Z86.711 Personal history of pulmonary embolism; W00.9XXA Unspecified fall due to ice and snow, initial encounter; Y93.01 Activity, walking, marching and hiking
CPT/HCPCS: 72100; 73502; 73552; 99283; 96372; 73562; J1885

== ENCOUNTER 2019-06-17 23:56 | Emergency (ER) | payer OTHER ==
[2019-06-18 00:06] VITALS: BP 133/77; PULSE 91; RESP 18; TEMP 97.8
[2019-06-18] MEDS ORDERED: KETOROLAC 30 MG/ML 1 ML VIAL IM STA (00:33)
--- NOTE | 2019-06-18 00:47 | XR ---
EXAMINATION TYPE: XR Hip Complete RT DATE OF EXAM: 06/18/2019 COMPARISON: NONE HISTORY: Right hip pain TECHNIQUE: 2 views FINDINGS: I see no fracture nor dislocation. Hip joint space is normal. There is no sign of hip dyspl srini. Sacroiliac joint appears normal. IMPRESSION: Normal right hip exam.
--- NOTE | 2019-06-18 01:09 | ED ---
Lower Extremity Injury HPI - General Chief Complaint: Extremity Injury, Lower Stated Complaint: R Hip Pain Time Seen by Provider: 06/18/19 00:11 Source: patient Mode of arrival: ambulatory - History of Present Illness Initial Comments: Patient 34-year-old male presenting to the emergency room with a chief complaint of the pain. Patient states 3 days ago while he was climbing up and down a ladder he developed pain in his right hip. Patient states the pain exacerbated whenever he is climbing a ladder or stairs. States that the sharp pain. It is alleviated at rest. Does report taking ibuprofen at home with minimal improvement in symptoms. States he also has chronic back pain and appears to be exacerbating symptoms. Denies any numbness or tingling. Denies any direct trauma to the region. - Related Data Allergies Allergy/AdvReac Type Severity Reaction Status Date / Time Penicillins Allergy Anaphylaxis Verified 06/02/19 23:54 Sulfa (Sulfonamide Allergy Itching Verified 06/02/19 23:54 Antibiotics) Review of Systems ROS Statement: Those systems with pertinent positive or pertinent negative responses have been documented in the HPI. ROS Other: All systems not noted in ROS Statement are negative. Past Medical History Past Medical History: Pulmonary Embolus (PE) Additional Past Medical History / Comment(s): 2010 BLOOD CLOT AFTER HEMORRHOID SX, HAD AN IVC FILTER INSERTED BUT SHORTLY AFTER THAT WAS FOUND TO HAVE 2 BLOOD CLOTS IN EACH LUNG." IT WAS FOUND THAT THE IVC FILTER WAS MISS PLACED AND DID'NT FUNCTION INTENDED.SO PT WAS CONTINUED ON BLOOD THINNERS. "I WAS TESTED FOR FACTOR FIVE-THEY DID A HOLE PANEL, IT WAS NEG. MOM AND AUNT HAVE LACK OF ABILTY TO CLOT.HX BIPOLAR, PNE X3, SEASONAL ALLERGIES History of Any Multi-Drug Resistant Organisms: None Reported Additional Past Surgical History / Comment(s): IVC filter Past Anesthesia/Blood Transfusion Reactions: Motion Sickness Past Psychological History: Bipolar Smoking Status: Former smoker Past Alcohol Use History: None Reported Past Drug Use History: None Reported - Past Family History Father History Unknown: Yes Mother Additional Family Medical History / Comment(s): "LACK OF ABILTY TO CLOT", SMOKER, ALCOHOLIC, ANX/DEPRESSION, GLAUCOMA, BREAST CA, General Exam Limitations: no limitations General appearance: alert, in no apparent distress Head exam: Present: atraumatic, normocephalic, normal inspection Eye exam: Present: normal appearance Pupils: Present: normal accommodation ENT exam: Present: normal exam Neck exam: Present: normal inspection, full ROM Respiratory exam: Present: normal lung sounds bilaterally Cardiovascular Exam: Present: regular rate, normal rhythm, normal heart sounds Extremities exam: Present: normal inspection, full ROM, tenderness (Tenderness along the anterior lateral aspect of the right hip.), normal capillary refill, other (+2 ulnar and radial pulses bilaterally.). Absent: pedal edema, joint swelling, calf tenderness Back exam: Present: normal inspection, full ROM Neurological exam: Present: alert, oriented X3 Psychiatric exam: Present: normal affect, normal mood Skin exam: Present: warm, dry, intact, normal color Course Vital Signs 06/17/19 23:59 Temperature 97.8 F Pulse Rate 91 Respiratory 18 Rate Blood Pressure 133/77 O2 Sat by Pulse 97 Oximetry Medical Decision Making - Medical Decision Making Patient 34-year-old male presenting to emergency Department with chief complaint right hip pain. No direct trauma to the region. X-rays is unremarkable. I suspect patient has trochanteric bursitis. Patient advised to alternate between Tylenol and Motrin for pain control. He was advised to follow-up with physical therapy. Patient is neurovascularly intact. Return parameters were thoroughly discussed the patient is understanding and agreeable. Case discussed with physician. Disposition Clinical Impression: Hip pain, right, Injury of right hip Disposition: HOME SELF-CARE Condition: Stable Instructions (If sedation given, give patient instructions): Hip Bursitis (ED) Additional Instructions: Follow-up with physical therapy. Return to emergency department if symptoms worsen. Alternate between Tylenol Motrin for pain control. Is patient prescribed a controlled substance at d/c from ED?: No Referrals: Arthur Malone MD [Primary Care Provider] - 1-2 days Time of Disposition: 01:08
== END 2019-06-18 01:19 | disposition home or self-care (01) ==
LOC: EC 23:56
DX: S79.911A Unspecified injury of right hip, initial encounter (principal); G89.29 Other chronic pain; M54.9 Dorsalgia, unspecified; Z87.891 Personal history of nicotine dependence; Z88.0 Allergy status to penicillin; Z88.2 Allergy status to sulfonamides; Z79.1 Long term (current) use of non-steroidal anti-inflammatories (NSAID); X50.9XXA Other and unspecified overexertion or strenuous movements or postures, initial encounter; Y93.39 Activity, other involving climbing, rappelling and jumping off; Y92.69 Other specified industrial and construction area as the place of occurrence of the external cause
CPT/HCPCS: 73502; 99283; 96372; J1885

== ENCOUNTER → 2019-08-14 | Outpatient (CLI) | payer OTHER ==
--- NOTE | 2019-08-14 12:16 | CT ---
EXAMINATION TYPE: CT knee RT wo con DATE OF EXAM: 08/14/2019 COMPARISON: None HISTORY: 34-year-old male with right knee pain, knee contusion, fall TECHNIQUE: Contiguous axial scanning of the right knee without IV contrast. Coronal and sagittal daryl nstructions performed. 3-D reconstructions generated on a dedicated independent workstation. CT DLP: 330 mGycm Automated exposure control for dose reduction was used. FINDINGS: No acute fracture or dislocation is identified. No periostitis or osteolysis. Trace knee joint fluid likely within physiologic range. Mild anterior soft tissue swelling. Extensor mechanism is intact. Slightly shallow superior trochlear groove and slight lateral patellar translation. IMPRESSION: 1. NO ACUTE OSSEOUS ABNORMALITY SEEN. TRACE KNEE JOINT EFFUSION MAY BE WITHIN PHYSIOLOGIC RANGE. IF C ONCERN FOR INTERNAL DERANGEMENT, MRI CAN BE PERFORMED. 2. SOME CONGENITAL BONY FINDINGS ALONG THE TROCHLEAR GROOVE AND SLIGHT LATERAL PATELLAR TRANSLATION S UGGEST TROCHLEAR DYSPLASIA WHICH CAN CONTRIBUTE TO PATELLAR INSTABILITY.
== END | disposition home or self-care (01) ==
LOC: RADCTMAIN 11:32
PROVIDERS: ATTEND Orthopaedic Surgery Sports Medicine
DX: R93.7 Abnormal findings on diagnostic imaging of other parts of musculoskeletal system (principal)

== ENCOUNTER → 2019-11-05 | Outpatient (CLI) | payer OTHER | END | disposition home or self-care (01) | LOC: LABWHC1 11:10 | PROVIDERS: ATTEND Family Medicine | DX: Z20.828 Contact with and (suspected) exposure to other viral communicable diseases (principal) | CPT/HCPCS: U0003; C9803 ==

== ENCOUNTER 2020-01-26 18:10 | Emergency (ER) | payer OTHER ==
[2020-01-26] MEDS ORDERED: SODIUM CHLORIDE 0.9% 1,000 ML IV STA (18:29)
[2020-01-26] MEDS ORDERED: METOCLOPRAMIDE 5 MG/ML 2 ML VIAL IVP STA (18:29)
[2020-01-26] MEDS ORDERED: diphenhydrAMINE 50 MG/ML 1 ML VIAL IVP STA (18:29)
[2020-01-26] MEDS ORDERED: KETOROLAC 15 MG/ML 1 ML VIAL IVP STA (18:29)
[2020-01-26 19:45] VITALS: PULSE 77; TEMP 97.4
--- NOTE | 2020-01-26 19:54 | ED ---
General Adult HPI - General Chief complaint: Headache Stated complaint: Migraine/weak Time Seen by Provider: 01/26/20 18:19 Source: patient, RN notes reviewed, old records reviewed Mode of arrival: ambulatory Limitations: no limitations - History of Present Illness Initial comments: 34-year-old male patient presents to ED for evaluation of migraine headache. Patient reports states had a migraine headache that she for the last 3 days. Reports is in the frontal area. Patient states that this headache is typical for him he is declining any red flag symptoms. Declines any weakness or paresthesias. Straight of thromboembolism. He's not currently on any anticoagulation this is voluntarily. Patient is requesting analgesia for the headache and is declining any sort of intracranial imaging. Systemic: Pt denies fatigue, fever/chills, rash. Pt denies weakness, night sweats, weight loss. Neuro: Pt denies visual disturbances, syncope or pre-syncope. HEENT: Pt denies ocular discharge or irritation, otalgia, rhinorrhea, pharyngitis or notable lymphadenopathy. Cardiopulmonary: Pt denies chest pain, SOB, heart palpitations, dyspnea on exertion. Abdominal/GI: Pt denies abdominal pain, n/v/d. : Pt denies dysuria, burning w/ urination, frequency/urgency. Denies new onset urinary or bowel incontinence. MSK: Pt denies myalgia, loss of strength or function in extremities. Neuro: Pt denies new onset weakness, paresthesias. - Related Data Allergies Allergy/AdvReac Type Severity Reaction Status Date / Time Penicillins Allergy Anaphylaxis Verified 01/26/20 18:15 Sulfa (Sulfonamide Allergy Itching Verified 01/26/20 18:15 Antibiotics) Review of Systems ROS Statement: Those systems with pertinent positive or pertinent negative responses have been documented in the HPI. ROS Other: All systems not noted in ROS Statement are negative. Past Medical History Past Medical History: Pulmonary Embolus (PE) Additional Past Medical History / Comment(s): 2010 BLOOD CLOT AFTER HEMORRHOID SX, HAD AN IVC FILTER INSERTED BUT SHORTLY AFTER THAT WAS FOUND TO HAVE 2 BLOOD CLOTS IN EACH LUNG." IT WAS FOUND THAT THE IVC FILTER WAS MISS PLACED AND DID'NT FUNCTION INTENDED.SO PT WAS CONTINUED ON BLOOD THINNERS. "I WAS TESTED FOR FACTOR FIVE-THEY DID A HOLE PANEL, IT WAS NEG. MOM AND AUNT HAVE LACK OF ABILTY TO CLOT.HX BIPOLAR, PNE X3, SEASONAL ALLERGIES History of Any Multi-Drug Resistant Organisms: None Reported Additional Past Surgical History / Comment(s): IVC filter Past Anesthesia/Blood Transfusion Reactions: Motion Sickness Past Psychological History: Depression Smoking Status: Never smoker Past Alcohol Use History: None Reported Past Drug Use History: None Reported - Past Family History Father History Unknown: Yes Mother Additional Family Medical History / Comment(s): "LACK OF ABILTY TO CLOT", SMOKER, ALCOHOLIC, ANX/DEPRESSION, GLAUCOMA, BREAST CA, General Exam - General Exam Comments Initial Comments: Constitutional: NAD, AOX3, Pt has pleasant affect. HEENT: NC/AT, trachea midline, neck supple, no lymphadenopathy. External ears appear normal, without discharge. Mucous membranes moist. Eyes PERRLA, EOM intact. There is no scleral icterus. No pallor noted. Cardiopulmonary: RRR, no murmurs, rubs or gallops, no JVD noted. Lungs CTAB in anterior and posterior mijares. No peripheral edema. Abdominal exam: Abdomen soft and non-distended. Abdomen non-tender to palpation in all 4 quadrants. Bowel sounds active in LLQ. No hepatosplenomegaly. No ecchymosis Neuro: CN II-XII intact. No nuchal rigidity. No raccon eyes, no calixto sign, no hemotympanum. No cervical spinal tenderness. MSK: No posterior calf tenderness bilaterally, homans sign negative bilaterally. Posterior tibialis and radial pulse +2 bilaterally. Sensation intact in upper and lower extremities. Full active ROM in upper and lower extremities, 5/5 stregnth. Limitations: no limitations Course Vital Signs 01/26/20 01/26/20 18:11 19:25 Temperature 98.1 F 97.4 F L Pulse Rate 80 77 Respiratory 18 18 Rate Blood Pressure 134/94 133/81 O2 Sat by Pulse 99 100 Oximetry Medical Decision Making - Medical Decision Making 34-year-old male patient presents to ED for evaluation of headache. Reports he has a frontal migraine-like headache. Running red flag symptoms or any concerning symptoms for him. Declines any Intracranial imaging. Vital signs are stable, afebrile. Physical exam does not display acute pathology neurology exam is intact 2. Patient headache has resolved, will discharge the patient follow up with primary care provider and will return to ER any worsening symptoms. Csae discussed with Dr. Dennison. Disposition Clinical Impression: Headache Disposition: HOME SELF-CARE Condition: Stable Instructions (If sedation given, give patient instructions): Acute Headache (ED) Additional Instructions: Follow up with PCP tomorrow, return to ED with any worsening symptoms. Is patient prescribed a controlled substance at d/c from ED?: No Referrals: Arthur Malone MD [Primary Care Provider] - 1-2 days
[2020-01-26 20:05] VITALS: BP 121/78; RESP 19
== END 2020-01-26 20:05 | disposition home or self-care (01) ==
LOC: EC 18:10
DX: R51.9 Headache, unspecified (principal); Z88.0 Allergy status to penicillin; Z88.2 Allergy status to sulfonamides; Z86.718 Personal history of other venous thrombosis and embolism
CPT/HCPCS: 96374 ×2; 96375 ×3; 96361 ×2; 99284 ×2; J1200; J2765; J1885

== ENCOUNTER 2020-01-27 14:07 | Emergency (ER) | payer OTHER ==
[2020-01-27] MEDS ORDERED: METOCLOPRAMIDE 5 MG/ML 2 ML VIAL IVP STA (15:08)
[2020-01-27] MEDS ORDERED: diphenhydrAMINE 50 MG/ML 1 ML VIAL IVP STA (15:08)
[2020-01-27] MEDS ORDERED: KETOROLAC 15 MG/ML 1 ML VIAL IVP STA (15:08)
[2020-01-27] MEDS ORDERED: SODIUM CHLORIDE 0.9% 1,000 ML IV STA (15:08)
--- NOTE | 2020-01-27 15:14 | ED ---
Headache HPI - General Chief Complaint: Headache Stated Complaint: Revisit Headache Time Seen by Provider: 01/27/20 14:53 Mode of arrival: ambulatory Limitations: no limitations - History of Present Illness Initial Comments: Patient is a 34-year-old male, history of PEs, presenting to the emergency Department with complaints of a migraine 2 days. Patient was seen in the ER y esterday for same complaint. Patient states after receiving the medications he states he felt better but the minute migraine came back later that evening. Patient states he has had migraines in the past but they usually will go away with ibuprofen. Patient states he feels like the migraine is worse and was yesterday, he continues to be nauseous, light sensitive, mildly dizzy. He denies any falls or trauma. He denies any changes in his vision. He denies any chest pain or palpitations. He currently rates the headache a 7/10. He has no further complaints at this time. Upon arrival to the ER, his vital signs are stable. - Related Data Home Medications Medication Instructions Recorded Confirmed No Known Home Medications 01/27/20 01/27/20 Allergies Allergy/AdvReac Type Severity Reaction Status Date / Time Penicillins Allergy Anaphylaxis Verified 01/27/20 16:44 Sulfa (Sulfonamide Allergy Itching Verified 01/27/20 16:44 Antibiotics) Review of Systems ROS Statement: Those systems with pertinent positive or pertinent negative responses have been documented in the HPI. ROS Other: All systems not noted in ROS Statement are negative. Past Medical History Past Medical History: Pulmonary Embolus (PE) Additional Past Medical History / Comment(s): 2010 BLOOD CLOT AFTER HEMORRHOID SX, HAD AN IVC FILTER INSERTED BUT SHORTLY AFTER THAT WAS FOUND TO HAVE 2 BLOOD CLOTS IN EACH LUNG." IT WAS FOUND THAT THE IVC FILTER WAS MISS PLACED AND DID'NT FUNCTION INTENDED.SO PT WAS CONTINUED ON BLOOD THINNERS. "I WAS TESTED FOR FACTOR FIVE-THEY DID A HOLE PANEL, IT WAS NEG. MOM AND AUNT HAVE LACK OF ABILTY TO CLOT.HX BIPOLAR, PNE X3, SEASONAL ALLERGIES History of Any Multi-Drug Resistant Organisms: None Reported Additional Past Surgical History / Comment(s): IVC filter Past Anesthesia/Blood Transfusion Reactions: Motion Sickness Past Psychological History: Depression Smoking Status: Never smoker Past Alcohol Use History: None Reported Past Drug Use History: None Reported - Past Family History Father History Unknown: Yes Mother Additional Family Medical History / Comment(s): "LACK OF ABILTY TO CLOT", SMOKER, ALCOHOLIC, ANX/DEPRESSION, GLAUCOMA, BREAST CA, General Exam - General Exam Comments Initial Comments: GENERAL: Patient is well-developed and well-nourished. Patient is nontoxic and in no acute distress. HEAD: Atraumatic, normocephalic. EYES: Pupils equal round and reactive to light, extraocular movements intact, sclera anicteric, conjunctiva are normal. Eyelids were unremarkable. ENT: TMs normal, nares patent, oropharynx clear without exudates. Moist mucous membranes. NECK: Normal range of motion, supple without lymphadenopathy or JVD. LUNGS: Unlabored respirations. Breath sounds clear to auscultation bilaterally and equal. No wheezes rales or rhonchi. HEART: Regular rate and rhythm without murmurs, rubs or gallops. ABDOMEN: Soft, nontender, normoactive bowel sounds. No guarding, no rebound. No masses appreciated. : Deferred MUSCULOSKELETAL: Normal extremities with adequate strength and normal range of motion, no pitting or edema. No clubbing or cyanosis. NEUROLOGICAL: Patient is alert and oriented x 3. Motor and sensory are also intact. Cranial nerves II through XII grossly intact. Symmetrical smile. Normal speech, normal gait. PSYCH: Normal mood, normal affect. SKIN: Warm, Dry, normal turgor, no rashes or lesions noted. Limitations: no limitations Course Vital Signs 01/27/20 01/27/20 01/27/20 14:37 15:24 16:35 Temperature 98 F Pulse Rate 99 86 94 Respiratory 18 181 H 18 Rate Blood Pressure 139/88 140/95 133/75 O2 Sat by Pulse 100 98 99 Oximetry Medical Decision Making - Medical Decision Making Patient is a 34-year-old male presenting for a migraine 2 days. He was the ER yesterday for same complaint, he felt better when he left but states the headache came back later in the evening. Vital signs are stable, exam is unremarkable, no neuro deficits. He denies any trauma or injuries. I did do a computed tomography scan of the brain which shows no acute findings. Patient was given typical migraine cocktail and does have relief of the symptoms. I did give him a work note for 2 days to continue with rest, increase water intake. We also discussed trial Excedrin Extra Strength for future headaches. Patient is in agreement with this plan of care. He is stable for discharge. He will follow up with his PCP. Return parameters were discussed with the patient he verbalizes understanding. Case discussed with Dr. Doherty. Disposition Clinical Impression: Head ache Disposition: HOME SELF-CARE Condition: Stable Instructions (If sedation given, give patient instructions): Acute Headache (ED) Additional Instructions: Please return to the Emergency Department if symptoms worsen or any other concerns. Trial of Excedrin extra strength for future migraines. Drink lots of water. Follow-up with PCP. Is patient prescribed a controlled substance at d/c from ED?: No Referrals: None,Stated [Primary Care Provider] - 1-2 days
--- NOTE | 2020-01-27 15:45 | CT ---
EXAMINATION TYPE: CT brain wo con DATE OF EXAM: 01/27/2020 COMPARISON: CT brain December 03, 2018 HISTORY: migraine headache CT DLP: 1036.4 mGycm. Automated Exposure Control for Dose Reduction was Utilized. TECHNIQUE: CT scan of the head is performed without contrast. FINDINGS: There is no acute intracranial hemorrhage, mass effect, or midline shift identified. The ventricles and sulci are within normal limits in size. Hallman-white matter differentiation is maintain ed. The globes are intact and the visualized sinuses are clear. IMPRESSION: Unremarkable study. No significant change from prior.
[2020-01-27] MEDS ORDERED: MORPHINE SULFATE 2 MG/ML SYRINGE IVP ONE (16:07)
[2020-01-27 16:40] VITALS: RESP 18
[2020-01-27 17:12] VITALS: BP 126/81; PULSE 79; TEMP 97.8
== END 2020-01-27 17:12 | disposition home or self-care (01) ==
LOC: EC 14:07
DX: R51.9 Headache, unspecified (principal); Z88.0 Allergy status to penicillin; Z88.2 Allergy status to sulfonamides; Z86.711 Personal history of pulmonary embolism
CPT/HCPCS: 99283 ×2; 96374 ×2; 96375 ×4; 96361 ×3; 70450; J1200; J2765; J2270; J1885

== ENCOUNTER 2020-02-17 20:22 | Emergency (ER) | payer OTHER ==
[2020-02-17 20:27] VITALS: PULSE 74; RESP 18; TEMP 97.9
[2020-02-17] MEDS ORDERED: PROPARACAINE 0.5% OPHTH DROPS 15 ML BTL LEFT EYE STA (20:48)
[2020-02-17] MEDS ORDERED: FLUORESCEIN STRIPS 1 MG STRIP LEFT EYE ONE (20:56)
--- NOTE | 2020-02-17 21:07 | ED ---
Eye Problem HPI - General Chief complaint: Eye Problems Stated complaint: Eye problem Time Seen by Provider: 02/17/20 20:31 Source: patient Mode of arrival: ambulatory Limitations: no limitations - History of Present Illness Initial comments: Patient is a 34-year-old male presenting to the emergency department with a chief complaint of eye problems. Patient states earlier today he was at work, he began to have irritation in his right eye. He states he felt a "yellow bump" near the medial aspect of the right eye. Patient states it did give him a s light burning sensation but no pain with extraocular movements. He denies any swelling of the eye but does report continuous watery discharge. He does have seasonal ALLERGIES. He also reports redness of the eye. Denies any blurry vision but complains of discomfort. Denies any night sweats fevers or chills. He denies foreign bodies in the eye. Does not wear eye contacts. - Related Data Home Medications Medication Instructions Recorded Confirmed No Known Home Medications 01/27/20 01/27/20 Allergies Allergy/AdvReac Type Severity Reaction Status Date / Time Penicillins Allergy Anaphylaxis Verified 01/27/20 16:44 Sulfa (Sulfonamide Allergy Itching Verified 01/27/20 16:44 Antibiotics) Review of Systems ROS Statement: Those systems with pertinent positive or pertinent negative responses have been documented in the HPI. ROS Other: All systems not noted in ROS Statement are negative. Past Medical History Past Medical History: Pulmonary Embolus (PE) Additional Past Medical History / Comment(s): 2010 BLOOD CLOT AFTER HEMORRHOID SX, HAD AN IVC FILTER INSERTED BUT SHORTLY AFTER THAT WAS FOUND TO HAVE 2 BLOOD CLOTS IN EACH LUNG." IT WAS FOUND THAT THE IVC FILTER WAS MISS PLACED AND DID'NT FUNCTION INTENDED.SO PT WAS CONTINUED ON BLOOD THINNERS. "I WAS TESTED FOR FACTOR FIVE-THEY DID A HOLE PANEL, IT WAS NEG. MOM AND AUNT HAVE LACK OF ABILTY TO CLOT.HX BIPOLAR, PNE X3, SEASONAL ALLERGIES History of Any Multi-Drug Resistant Organisms: None Reported Additional Past Surgical History / Comment(s): IVC filter Past Anesthesia/Blood Transfusion Reactions: Motion Sickness Past Psychological History: Depression Smoking Status: Never smoker Past Alcohol Use History: None Reported Past Drug Use History: None Reported - Past Family History Father History Unknown: Yes Mother Additional Family Medical History / Comment(s): "LACK OF ABILTY TO CLOT", SMOKER, ALCOHOLIC, ANX/DEPRESSION, GLAUCOMA, BREAST CA, General Exam Limitations: no limitations General appearance: alert, in no apparent distress Head exam: Present: atraumatic, normocephalic, normal inspection Eye exam: Present: normal appearance, PERRL, EOMI, conjunctival injection (Right eye conjunctival injections sparing the limbus.). Absent: other (No foreign body detected. Fluorescein stain reveals no signs of ulcers or abrasions. Negative Mercedes sign. Chemosis noted) Pupils: Present: normal accommodation ENT exam: Present: normal exam, normal oropharynx, mucous membranes moist, TM's normal bilaterally, normal external ear exam Neck exam: Present: normal inspection, full ROM. Absent: tenderness Respiratory exam: Present: normal lung sounds bilaterally. Absent: respiratory distress, wheezes, rales Cardiovascular Exam: Present: regular rate, normal rhythm, normal heart sounds Extremities exam: Present: normal inspection, full ROM, normal capillary refill. Absent: tenderness Back exam: Present: normal inspection, full ROM. Absent: tenderness, CVA tenderness (R), CVA tenderness (L) Neurological exam: Present: alert, oriented X3 Psychiatric exam: Present: normal affect, normal mood Skin exam: Present: warm, dry, intact, normal color Course Vital Signs 02/17/20 02/17/20 20:24 22:03 Temperature 97.9 F 97.9 F Pulse Rate 74 74 Respiratory 18 18 Rate Blood Pressure 134/96 134/94 O2 Sat by Pulse 100 100 Oximetry Medical Decision Making - Medical Decision Making 34-year-old male presenting to the emergency department with chief complaint of eye problems. On physical examination, fluorescein stain reveals negative Mercedes sign. No signs of orbital or periorbital abscess. No foreign bodies detected. He does have continuous watery discharge with conjunctival injections that is spared a limbus. I suspect ALLERGIC conjunctivitis. However, I will treat the patient for bacterial as well. Patient will be discharged with ketotifen ophthalmic drops and erythromycin ointment. He was advised to follow- up with an [employer] foreman. Strict return problems were thoroughly discussed the patient was understanding and agreeable. Case discussed with physician. Disposition Clinical Impression: Conjunctivitis, right eye, Discomfort of right eye Disposition: HOME SELF-CARE Condition: Stable Instructions (If sedation given, give patient instructions): Conjunctivitis (ED) Additional Instructions: Apply 1-2 drops twice a day of the ketotifen. Apply one ribbon on bottom eyelid of erythromycin ointment. Follow up with an [employer] foreman if symptoms not improved. Return to emergency department if symptoms worsen. Is patient prescribed a controlled substance at d/c from ED?: No Referrals: None,Stated [Primary Care Provider] - 1-2 days Chad Magana MD [STAFF PHYSICIAN] - 1-2 days Time of Disposition: 21:21
[2020-02-17] MEDS ORDERED: ERYTHROMYCIN 5 MG/GM OPHTH OINT 1 GM TUBE RIGHT EYE STA (21:18)
[2020-02-17] MEDS ORDERED: KETOTIFEN 0.025% OPHTH DROPS 5 ML BTL RIGHT EYE SCH (21:30)
[2020-02-17 22:05] VITALS: BP 134/94
== END 2020-02-17 22:05 | disposition home or self-care (01) ==
LOC: EC 20:22
DX: H10.9 Unspecified conjunctivitis (principal); H57.11 Ocular pain, right eye; Z88.0 Allergy status to penicillin; Z88.2 Allergy status to sulfonamides; Z86.711 Personal history of pulmonary embolism
CPT/HCPCS: 99283

== ENCOUNTER 2020-05-13 12:48 | Emergency (ER) | payer OTHER ==
[2020-05-13 12:56] VITALS: BP 136/85; PULSE 83; RESP 18; TEMP 98.5
[2020-05-13] MEDS ORDERED: PROPARACAINE 0.5% OPHTH DROPS 15 ML BTL LEFT EYE STA (13:12)
[2020-05-13] MEDS ORDERED: TOBRAMYCIN 0.3% OPHTH DROPS 5 ML BTL RIGHT EYE STA (13:25)
--- NOTE | 2020-05-13 13:30 | ED ---
Eye Problem HPI - General Chief complaint: Eye Problems Stated complaint: Eye injury, [facility] Time Seen by Provider: 05/13/20 13:07 Source: patient, RN notes reviewed Mode of arrival: ambulatory Limitations: no limitations - History of Present Illness Initial comments: 34-year-old male presents emergency department with chief complaint of right eye injury. Patient states that he was drilling above his head states that the drill bit got caught causing the drill despite around striking his CP glasses. Patient states it pushed towards his eye. Patient states that he felt like it's scratch his eye. His tetanus is up-to-date. Patient denies any significant blurred vision states that this feels irritated. No headache no dizziness no periorbital pain. - Related Data Home Medications Medication Instructions Recorded Confirmed No Known Home Medications 01/27/20 05/13/20 Allergies Allergy/AdvReac Type Severity Reaction Status Date / Time Penicillins Allergy Anaphylaxis Verified 05/13/20 13:21 Sulfa (Sulfonamide Allergy Itching Verified 05/13/20 13:21 Antibiotics) Review of Systems ROS Statement: Those systems with pertinent positive or pertinent negative responses have been documented in the HPI. ROS Other: All systems not noted in ROS Statement are negative. Past Medical History Past Medical History: Pulmonary Embolus (PE) Additional Past Medical History / Comment(s): 2010 BLOOD CLOT AFTER HEMORRHOID SX, HAD AN IVC FILTER INSERTED BUT SHORTLY AFTER THAT WAS FOUND TO HAVE 2 BLOOD CLOTS IN EACH LUNG." IT WAS FOUND THAT THE IVC FILTER WAS MISS PLACED AND DID'NT FUNCTION INTENDED.SO PT WAS CONTINUED ON BLOOD THINNERS. "I WAS TESTED FOR FACTOR FIVE-THEY DID A HOLE PANEL, IT WAS NEG. MOM AND AUNT HAVE LACK OF ABILTY TO CLOT.HX BIPOLAR, PNE X3, SEASONAL ALLERGIES History of Any Multi-Drug Resistant Organisms: None Reported Additional Past Surgical History / Comment(s): IVC filter Past Anesthesia/Blood Transfusion Reactions: Motion Sickness Past Psychological History: Depression Smoking Status: Never smoker Past Alcohol Use History: None Reported Past Drug Use History: None Reported - Past Family History Father History Unknown: Yes Mother Additional Family Medical History / Comment(s): "LACK OF ABILTY TO CLOT", SMOKER, ALCOHOLIC, ANX/DEPRESSION, GLAUCOMA, BREAST CA, General Exam Limitations: no limitations General appearance: alert, in no apparent distress Head exam: Present: atraumatic, normocephalic, normal inspection Eye exam: Present: PERRL, EOMI, conjunctival injection (Mild right), other (Symptoms resolved with proparacaine, fluorescein dye and Wood's lamp were used a small scleral abrasion or corneal injury pupils are reactive). Absent: normal appearance, scleral icterus, periorbital swelling ENT exam: Present: normal exam, normal oropharynx, mucous membranes moist Neck exam: Present: normal inspection. Absent: tenderness, meningismus, lymphadenopathy Respiratory exam: Present: normal lung sounds bilaterally. Absent: respiratory distress, wheezes, rales, rhonchi, stridor Cardiovascular Exam: Present: regular rate, normal rhythm, normal heart sounds. Absent: systolic murmur, diastolic murmur, rubs, gallop, clicks Course Vital Signs 05/13/20 12:51 Temperature 98.5 F Pulse Rate 83 Respiratory 18 Rate Blood Pressure 136/85 O2 Sat by Pulse 97 Oximetry Medical Decision Making - Medical Decision Making 34-year-old presented for right eye injury patient has a scleral abrasion. Patient symptoms have resolved with proparacaine patient discharge on Tobrex eyedrops patient intraocular pressure is 18 on the righteven change from left. Patient will follow-up with ophthalmology tomorrow if no improvement symptoms return parameters were discussed. Disposition Clinical Impression: Abrasion of sclera of right eye Disposition: HOME SELF-CARE Condition: Stable Instructions (If sedation given, give patient instructions): Corneal Abrasion (ED) Additional Instructions: Use Tobrex eyedrops every 4 hours for the next 5 days. Please return to the Emergency Department if symptoms worsen or any other concerns. Is patient prescribed a controlled substance at d/c from ED?: No Referrals: None,Stated [Primary Care Provider] - 1-2 days Keron Sapp MD [STAFF PHYSICIAN] - 1-2 days Time of Disposition: 13:30
== END 2020-05-13 13:52 | disposition home or self-care (01) ==
LOC: EC 12:48
DX: S05.00XA Injury of conjunctiva and corneal abrasion without foreign body, unspecified eye, initial encounter (principal); Z88.2 Allergy status to sulfonamides; Z88.0 Allergy status to penicillin; Z86.711 Personal history of pulmonary embolism; X58.XXXA Exposure to other specified factors, initial encounter; Y93.89 Activity, other specified; Y92.69 Other specified industrial and construction area as the place of occurrence of the external cause; Y99.0 Civilian activity done for income or pay
CPT/HCPCS: 99283

== ENCOUNTER → 2020-07-05 | Outpatient (CLI) | payer OTHER ==
[2020-07-05 18:52] LABS: Basophils # (A) 0.02 X 10*3/uL (0.00-0.10); Basophils % (A) 0.3 %; Eosinophils # (A) 0.09 X 10*3/uL (0.04-0.35); Eosinophils % (A) 1.3 %; HCT 47.7 % (39.6-50.0); HGB 16.4 g/dL (13.0-17.0); Lymphocytes # (A) 2.74 X 10*3/uL (0.90-5.00); Lymphocytes % (A) 39.3 %; MCH 30.8 pg (27.0-32.0); MCHC 34.4 g/dL (32.0-37.0); MCV 89.7 fL (80.0-97.0); Mean Platelet Volume 12.3 fL (9.5-12.2); Monocytes # (A) 0.69 X 10*3/uL (0.20-1.00); Monocytes % (A) 9.9 %; Neutrophils # (A) 3.42 X 10*3/uL (1.80-7.70); Neutrophils % (A) 49.1 %; Platelet Count 200 X 10*3/uL (140-440); RBC 5.32 X 10*6/uL (4.40-5.60); RDW 12.9 % (11.5-14.5); WBC 6.97 X 10*3/uL (4.50-10.00)
[2020-07-05 19:46] LABS: African American GFR (CKD) 113.3 (60.0-200.0); Albumin 4.4 g/dL (3.80-4.90); Albumin/Globulin Ratio 1.69 (1.60-3.17); Anion Gap 7.2 mmol/L (4.00-12.00); Calcium 9.7 mg/dL (8.7-10.3); Carbon Dioxide 26.8 mmol/L (21.6-31.8); Chol/HDL Ratio 6.34; Globulin 2.6 g/dL (1.6-3.3); Non-African American GFR(CKD) 97.8 (60.0-200.0); Potassium 4.6 mmol/L (3.5-5.5); Total Bilirubin 1.6 mg/dL (0.2-1.2)
== END | disposition home or self-care (01) ==
LOC: LABWHC1 11:51
PROVIDERS: ATTEND Family Medicine
DX: G43.909 Migraine, unspecified, not intractable, without status migrainosus (principal); I26.99 Other pulmonary embolism without acute cor pulmonale; R07.89 Other chest pain
CPT/HCPCS: 36415; 80053; 80061; 85025

== ENCOUNTER 2020-10-26 20:33 | Emergency (ER) | payer OTHER ==
[2020-10-26 20:39] VITALS: BP 152/97; PULSE 86; RESP 16; TEMP 98.2
--- NOTE | 2020-10-26 21:48 | ED ---
Extremity Problem HPI - General Chief complaint: Extremity Problem,Nontraumatic Stated complaint: L leg pain Time Seen by Provider: 10/26/20 20:50 Source: patient, RN notes reviewed Mode of arrival: ambulatory Limitations: no limitations - History of Present Illness Initial comments: This a 35-year-old male presents emergency from chief complaint left leg pain. Patient states a week ago he started having some numbness and tingling of his feet states his doctor told him is related to enteritis boots too tight. He states that he did start were more loose and had improved. Patient states that he is now developed some left thigh anterior lateral numbness, discomfort pain with palpation no swelling redness decreased warmth or any discoloration sore. He does admit that he's had multiple blood clots she is currently on blood thinners. Denies any chest pain or shortness breath no fevers or chills no point of back pain no bowel bladder incontinence or retention. - Related Data Home Medications Medication Instructions Recorded Confirmed Multivitamins, Thera [Multivitamin 1 tab PO DAILY 10/26/20 10/26/20 (formulary)] Pantoprazole Sodium [Protonix] 40 mg PO HS 10/26/20 10/26/20 Rivaroxaban [Xarelto] 10 mg PO HS 10/26/20 10/26/20 Topiramate [Topamax] 50 mg PO BID 10/26/20 10/26/20 Previous Rx's Medication Instructions Recorded predniSONE 50 mg PO DAILY #5 tab 10/26/20 Allergies Allergy/AdvReac Type Severity Reaction Status Date / Time Penicillins Allergy Anaphylaxis Verified 10/26/20 22:17 Sulfa (Sulfonamide Allergy Itching Verified 10/26/20 22:17 Antibiotics) Review of Systems ROS Statement: Those systems with pertinent positive or pertinent negative responses have been documented in the HPI. ROS Other: All systems not noted in ROS Statement are negative. Past Medical History Past Medical History: Pulmonary Embolus (PE) Additional Past Medical History / Comment(s): 2010 BLOOD CLOT AFTER HEMORRHOID SX, HAD AN IVC FILTER INSERTED BUT SHORTLY AFTER THAT WAS FOUND TO HAVE 2 BLOOD CLOTS IN EACH LUNG." IT WAS FOUND THAT THE IVC FILTER WAS MISS PLACED AND DID'NT FUNCTION INTENDED.SO PT WAS CONTINUED ON BLOOD THINNERS. "I WAS TESTED FOR FACTOR FIVE-THEY DID A HOLE PANEL, IT WAS NEG. MOM AND AUNT HAVE LACK OF ABILTY TO CLOT.HX BIPOLAR, PNE X3, SEASONAL ALLERGIES History of Any Multi-Drug Resistant Organisms: None Reported Additional Past Surgical History / Comment(s): IVC filter Past Anesthesia/Blood Transfusion Reactions: Motion Sickness Past Psychological History: Depression Smoking Status: Never smoker Past Alcohol Use History: None Reported Past Drug Use History: None Reported - Past Family History Father History Unknown: Yes Mother Additional Family Medical History / Comment(s): "LACK OF ABILTY TO CLOT", SMOKER, ALCOHOLIC, ANX/DEPRESSION, GLAUCOMA, BREAST CA, General Exam Limitations: no limitations General appearance: alert, in no apparent distress Head exam: Present: atraumatic, normocephalic, normal inspection Neck exam: Present: normal inspection, full ROM. Absent: tenderness, meningismus, lymphadenopathy Respiratory exam: Present: normal lung sounds bilaterally. Absent: respiratory distress, wheezes, rales, rhonchi, stridor Cardiovascular Exam: Present: regular rate, normal rhythm, normal heart sounds. Absent: systolic murmur, diastolic murmur, rubs, gallop, clicks GI/Abdominal exam: Present: soft, normal bowel sounds. Absent: distended, tenderness, guarding, rebound, rigid Extremities exam: Present: other (Lower extremities neurovascular intact equal and equal warmth tenderness the left lateral thigh strength 5/5) Course Vital Signs 10/26/20 20:35 Temperature 98.2 F Pulse Rate 86 Respiratory 16 Rate Blood Pressure 152/97 O2 Sat by Pulse 97 Oximetry Medical Decision Making - Medical Decision Making patient present for left leg pain. Patient has no red flag symptoms. Patient ultrasound finger CT is negative. Patient's symptoms are more consistent with meralgia paresthetica. Patient will follow-up with his PCP at her scheduled appointment tomorrow return for worsening changes symptoms. Disposition Clinical Impression: Meralgia paraesthetica Disposition: HOME SELF-CARE Condition: Stable Instructions (If sedation given, give patient instructions): Meralgia Paresthetica (ED) Additional Instructions: Please return to the Emergency Department if symptoms worsen or any other concerns. Prescriptions: predniSONE 50 mg PO DAILY #5 tab Is patient prescribed a controlled substance at d/c from ED?: No Referrals: Patrice Alcala [Primary Care Provider] - 1-2 days Time of Disposition: 23:53
--- NOTE | 2020-10-26 22:29 | US ---
EXAMINATION TYPE: US venous doppler duplex LE LT DATE OF EXAM: 10/26/2020 10:04 PM COMPARISON: NONE CLINICAL HISTORY: pain. Pain in left leg. Hx PE, IVC filter in place. Patient on Xarelto. SIDE PERFORMED: Left TECHNIQUE: The lower extremity deep venous system is examined utilizing real time linear array sonog kendall with graded compression, doppler sonography and color-flow sonography. VESSELS IMAGED: Common Femoral Vein Deep Femoral Vein Greater Saphenous Vein * Femoral Vein Popliteal Vein Small Saphenous Vein * Proximal Calf Veins (* superficial vessels) Left Leg: No evidence of DVT in veins imaged at this time. IMPRESSION: No sign of deep vein thrombosis in the left leg.
--- NOTE | 2020-10-26 23:48 | CT ---
EXAMINATION TYPE: CT lumbar spine wo con DATE OF EXAM: 10/26/2020 COMPARISON: 06/10/2018 HISTORY: Left Leg Pain/Numbness CT DLP: 1080.60 mGycm Automated exposure control for dose reduction was used. Images obtained from the level of T12-S3 to vertebra without contrast. The vertebra have normal alignment. Disc spaces are fairly normal. There is no lumbar paraspinal mass . There is inferior vena cava filter. Facet joints are intact. The posterior elements are intact. I s ee no evidence of any significant lumbar disc herniation. The sacroiliac joints are intact. There is no spinal stenosis. IMPRESSION: Negative CT scan of the lumbar spine. No lumbar disc herniation or spinal stenosis. No fracture. No a dverse change compared to old exam.
== END 2020-10-26 23:58 | disposition home or self-care (01) ==
LOC: EC 20:33
DX: G57.12 Meralgia paresthetica, left lower limb (principal); F32.9 Major depressive disorder, single episode, unspecified; Z86.711 Personal history of pulmonary embolism; Z87.19 Personal history of other diseases of the digestive system; Z79.01 Long term (current) use of anticoagulants; Z79.52 Long term (current) use of systemic steroids; Z79.899 Other long term (current) drug therapy; Z88.0 Allergy status to penicillin; Z88.2 Allergy status to sulfonamides; Z95.828 Presence of other vascular implants and grafts
CPT/HCPCS: 72131; 99284

== ENCOUNTER 2021-02-10 08:27 | Emergency (ER) | payer BC, OTHER ==
[2021-02-10] MEDS ORDERED: SODIUM CHLORIDE 0.9% 1,000 ML IV STA ×2 (09:05)
[2021-02-10] MEDS ORDERED: ONDANSETRON 4 MG/2 ML VIAL IVP STA ×2 (09:05→11:01)
[2021-02-10] MEDS ORDERED: DICYCLOMINE 10 MG/ML 2 ML AMP IM STA (09:05)
[2021-02-10] MEDS ORDERED: FAMOTIDINE 20 MG/2 ML VIAL IV STA (09:07)
--- NOTE | 2021-02-10 09:12 | ED ---
General Adult HPI - General Chief complaint: Nausea/Vomiting/Diarrhea Stated complaint: Nausea/Vomiting/Diarrhea Time Seen by Provider: 02/10/21 08:44 Source: patient, RN notes reviewed Mode of arrival: ambulatory Limitations: no limitations - History of Present Illness Initial comments: Patient is a pleasant 35-year-old male presenting to the emergency department with nausea vomiting diarrhea. Onset of symptoms was over a day ago. Patient believes it is related to drinking a old drink that was sitting out. Patient has vomited 2 or 3 times. Patient has had more diarrhea. Patient is having intermittent abdominal cramping. No fevers at home. - Related Data Home Medications Medication Instructions Recorded Confirmed Multivitamins, Thera [Multivitamin 1 tab PO DAILY 10/26/20 10/26/20 (formulary)] Pantoprazole Sodium [Protonix] 40 mg PO HS 10/26/20 10/26/20 Rivaroxaban [Xarelto] 10 mg PO HS 10/26/20 10/26/20 Topiramate [Topamax] 50 mg PO BID 10/26/20 10/26/20 Previous Rx's Medication Instructions Recorded predniSONE 50 mg PO DAILY #5 tab 10/26/20 Metoclopramide HCl [Reglan] 10 mg PO Q6HR PRN #15 tablet 02/10/21 Allergies Allergy/AdvReac Type Severity Reaction Status Date / Time Penicillins Allergy Anaphylaxis Verified 02/10/21 08:41 Sulfa (Sulfonamide Allergy Itching Verified 02/10/21 08:41 Antibiotics) Review of Systems ROS Statement: Those systems with pertinent positive or pertinent negative responses have been documented in the HPI. ROS Other: All systems not noted in ROS Statement are negative. Constitutional: Denies: fever, chills Eyes: Denies: eye pain ENT: Denies: ear pain Respiratory: Denies: cough Cardiovascular: Denies: chest pain Endocrine: Denies: fatigue Gastrointestinal: Reports: as per HPI, abdominal pain, nausea, vomiting, diarrhea Genitourinary: Denies: dysuria Musculoskeletal: Denies: back pain Skin: Denies: rash Neurological: Denies: weakness Past Medical History Past Medical History: Pulmonary Embolus (PE) Additional Past Medical History / Comment(s): 2010 BLOOD CLOT AFTER HEMORRHOID SX, HAD AN IVC FILTER INSERTED BUT SHORTLY AFTER THAT WAS FOUND TO HAVE 2 BLOOD CLOTS IN EACH LUNG." IT WAS FOUND THAT THE IVC FILTER WAS MISS PLACED AND DID'NT FUNCTION INTENDED.SO PT WAS CONTINUED ON BLOOD THINNERS. "I WAS TESTED FOR FACTOR FIVE-THEY DID A HOLE PANEL, IT WAS NEG. MOM AND AUNT HAVE LACK OF ABILTY TO CLOT.HX BIPOLAR, PNE X3, SEASONAL ALLERGIES History of Any Multi-Drug Resistant Organisms: None Reported Additional Past Surgical History / Comment(s): IVC filter Past Anesthesia/Blood Transfusion Reactions: Motion Sickness Past Psychological History: Depression Smoking Status: Never smoker Past Alcohol Use History: None Reported Past Drug Use History: None Reported - Past Family History Father History Unknown: Yes Mother Additional Family Medical History / Comment(s): "LACK OF ABILTY TO CLOT", SMOKER, ALCOHOLIC, ANX/DEPRESSION, GLAUCOMA, BREAST CA, General Exam Limitations: no limitations General appearance: alert, in no apparent distress Head exam: Present: normocephalic Eye exam: Present: normal appearance Neck exam: Present: normal inspection Respiratory exam: Present: normal lung sounds bilaterally Cardiovascular Exam: Present: regular rate, normal rhythm Expanded Peripheral pulses: 2+: Radial (R), Radial (L), Posterior Tibialis (R), Posterior Tibialis (L) GI/Abdominal exam: Present: soft, tenderness (Mild lower abdominal tenderness), normal bowel sounds. Absent: distended, guarding, rebound, rigid, pulsatile mass Extremities exam: Present: normal inspection Neurological exam: Present: alert Psychiatric exam: Present: normal affect, normal mood Skin exam: Present: normal color Course Vital Signs 02/10/21 08:38 Temperature 97.9 F Pulse Rate 91 Respiratory 17 Rate Blood Pressure 118/84 O2 Sat by Pulse 96 Oximetry Medical Decision Making - Medical Decision Making Patient is again reevaluated and is now saying to feel better. Patient comfortable with discharge. Patient updated on results and need for follow-up. - Lab Data Result diagrams: 02/10/21 09:18 02/10/21 09:18 Lab Results 02/10/21 02/10/21 02/10/21 Range/Units 09:18 09:18 09:18 WBC 11.7 H (3.8-10.6) k/uL RBC 5.33 (4.30-5.90) m/uL Hgb 16.8 (13.0-17.5) gm/dL Hct 49.0 (39.0-53.0) % MCV 91.9 (80.0-100.0) fL MCH 31.5 (25.0-35.0) pg MCHC 34.2 (31.0-37.0) g/dL RDW 13.5 (11.5-15.5) % Plt Count 209 (150-450) k/uL MPV 8.9 Neutrophils % 74 % Lymphocytes % 18 % Monocytes % 6 % Eosinophils % 1 % Basophils % 0 % Neutrophils # 8.6 H (1.3-7.7) k/uL Lymphocytes # 2.0 (1.0-4.8) k/uL Monocytes # 0.7 (0-1.0) k/uL Eosinophils # 0.1 (0-0.7) k/uL Basophils # 0.0 (0-0.2) k/uL PT 11.3 (9.0-12.0) sec INR 1.1 (<1.2) APTT 24.9 (22.0-30.0) sec Sodium (137-145) mmol/L Potassium (3.5-5.1) mmol/L Chloride (98-107) mmol/L Carbon Dioxide (22-30) mmol/L Anion Gap mmol/L BUN (9-20) mg/dL Creatinine (0.66-1.25) mg/dL Est GFR (CKD-EPI)AfAm (>60 ml/min/1.73 sqM) Est GFR (CKD-EPI)NonAf (>60 ml/min/1.73 sqM) Glucose (74-99) mg/dL Calcium (8.4-10.2) mg/dL Total Bilirubin (0.2-1.3) mg/dL AST (17-59) U/L ALT (4-49) U/L Alkaline Phosphatase (38-126) U/L Total Protein (6.3-8.2) g/dL Albumin (3.5-5.0) g/dL Amylase (30-110) U/L Lipase (23-300) U/L Urine Color Yellow Urine Appearance Clear (Clear) Urine pH 5.5 (5.0-8.0) Ur Specific [place] 1.024 (1.001-1.035) Urine Protein Negative (Negative) Urine Glucose (UA) Negative (Negative) Urine Ketones Negative (Negative) Urine Blood Negative (Negative) Urine Nitrite Negative (Negative) Urine Bilirubin Negative (Negative) Urine Urobilinogen <2.0 (<2.0) mg/dL Ur Leukocyte Esterase Negative (Negative) 02/10/21 Range/Units 09:18 WBC (3.8-10.6) k/uL RBC (4.30-5.90) m/uL Hgb (13.0-17.5) gm/dL Hct (39.0-53.0) % MCV (80.0-100.0) fL MCH (25.0-35.0) pg MCHC (31.0-37.0) g/dL RDW (11.5-15.5) % Plt Count (150-450) k/uL MPV Neutrophils % % Lymphocytes % % Monocytes % % Eosinophils % % Basophils % % Neutrophils # (1.3-7.7) k/uL Lymphocytes # (1.0-4.8) k/uL Monocytes # (0-1.0) k/uL Eosinophils # (0-0.7) k/uL Basophils # (0-0.2) k/uL PT (9.0-12.0) sec INR (<1.2) APTT (22.0-30.0) sec Sodium 140 (137-145) mmol/L Potassium 4.3 (3.5-5.1) mmol/L Chloride 111 H (98-107) mmol/L Carbon Dioxide 18 L (22-30) mmol/L Anion Gap 11 mmol/L BUN 12 (9-20) mg/dL Creatinine 0.93 (0.66-1.25) mg/dL Est GFR (CKD-EPI)AfAm >90 (>60 ml/min/1.73 sqM) Est GFR (CKD-EPI)NonAf >90 (>60 ml/min/1.73 sqM) Glucose 110 H (74-99) mg/dL Calcium 10.1 (8.4-10.2) mg/dL Total Bilirubin 1.8 H (0.2-1.3) mg/dL AST 22 (17-59) U/L ALT 29 (4-49) U/L Alkaline Phosphatase 89 (38-126) U/L Total Protein 7.9 (6.3-8.2) g/dL Albumin 4.5 (3.5-5.0) g/dL Amylase 73 (30-110) U/L Lipase 141 (23-300) U/L Urine Color Urine Appearance (Clear) Urine pH (5.0-8.0) Ur Specific [place] (1.001-1.035) Urine Protein (Negative) Urine Glucose (UA) (Negative) Urine Ketones (Negative) Urine Blood (Negative) Urine Nitrite (Negative) Urine Bilirubin (Negative) Urine Urobilinogen (<2.0) mg/dL Ur Leukocyte Esterase (Negative) - Radiology Data Radiology results: report reviewed (CT abdomen and pelvis: Correlate for gastroenteritis colitis.) Disposition Clinical Impression: Vomiting Disposition: HOME SELF-CARE Condition: Stable Instructions (If sedation given, give patient instructions): Acute Nausea and Vomiting (ED), Acute Diarrhea (ED) Additional Instructions: Prescription has been sent to pharmacy. Please follow-up with family care physician in the next day or 2 for recheck. Return for uncontrolled vomiting, fevers, increased pain, worsening symptoms or other concerns. Prescriptions: Metoclopramide HCl [Reglan] 10 mg PO Q6HR PRN #15 tablet PRN Reason: Nausea Is patient prescribed a controlled substance at d/c from ED?: No Referrals: Patrice Alcala [Primary Care Provider] - 1-2 days Time of Disposition: 12:15
[2021-02-10 09:27] LABS: Basophils % (A) 0 %; Eosinophils # (A) 0.1 k/uL (0-0.7); Eosinophils % (A) 1 %; HGB 16.8 gm/dL (13.0-17.5); Lymphocytes % (A) 18 %; MCH 31.5 pg (25.0-35.0); MCHC 34.2 g/dL (31.0-37.0); MCV 91.9 fL (80.0-100.0); Mean Platelet Volume 8.9; Monocytes # (A) 0.7 k/uL (0-1.0); Monocytes % (A) 6 %; Neutrophils # (A) 8.6 k/uL (1.3-7.7); Neutrophils % (A) 74 %; Platelet Count 209 k/uL (150-450); RBC 5.33 m/uL (4.30-5.90); RDW 13.5 % (11.5-15.5); WBC 11.7 k/uL (3.8-10.6)
[2021-02-10 09:30] LABS: Appearance,Urine Clear (Clear); Bilirubin,Urine Negative (Negative); Blood,Urine Negative (Negative); Color,Urine Yellow; Glucose,Urine (UA) Negative (Negative); Ketones,Urine Negative (Negative); Leukocyte Esterase,Urine Negative (Negative); Nitrite,Urine Negative (Negative); PH, Urine 5.5 (5.0-8.0); Protein,Urine Negative (Negative); Specific Gravity,Urine 1.024 (1.001-1.035); Urobilinogen,Urine <2.0 mg/dL (<2.0)
[2021-02-10 09:45] LABS: INR 1.1 (<1.2); Partial Thromboplastin Time 24.9 sec (22.0-30.0); Prothrombin Time 11.3 sec (9.0-12.0)
[2021-02-10 09:46] LABS: ALT 29 U/L (4-49); AST 22 U/L (17-59); African American GFR (CKD) >90 (>60 ml/min/1.73 sqM); Albumin 4.5 g/dL (3.5-5.0); Alkaline Phosphatase 89 U/L (38-126); Amylase 73 U/L (30-110); Anion Gap 11 mmol/L; Blood Urea Nitrogen 12 mg/dL (9-20); Calcium 10.1 mg/dL (8.4-10.2); Carbon Dioxide 18 mmol/L (22-30); Chloride 111 mmol/L (98-107); Glucose 110 mg/dL (74-99); Lipase 141 U/L (23-300); Non-African American GFR(CKD) >90 (>60 ml/min/1.73 sqM); Potassium 4.3 mmol/L (3.5-5.1); Sodium 140 mmol/L (137-145); Total Bilirubin 1.8 mg/dL (0.2-1.3); Total Protein 7.9 g/dL (6.3-8.2)
--- NOTE | 2021-02-10 10:30 | CT ---
EXAMINATION TYPE: CT abdomen pelvis w con DATE OF EXAM: 02/10/2021 COMPARISON: 04/11/2017 HISTORY: Pelvic pain with N/V/D for [address] DLP: 1307.2 mGycm CONTRAST: CT scan of the abdomen and pelvis is performed without Oral Contrast and with IV Contrast, patient in jected with 100 mL of Isovue 300. FINDINGS: LUNG BASES-: No visible nodule. No infiltrate. LIVER/GB: No calcified gallstones. No space occupying hepatic lesion. Biliary tree is of normal ca liber. PANCREAS: No inflammation. No distinct mass. SPLEEN: No splenic enlargement. No lesion seen. ADRENALS: No nodule. No thickening. KIDNEYS/BLADDER: No hydronephrosis. No nephrolithiasis. No distinct renal mass. Urinary bladder g rossly unremarkable. BOWEL: Normal appendix. Gastrointestinal fluid distention. Fluid distention throughout the colon as w ell. Correlate for diarrhea. Findings are felt to reflect gastroenterocolitis. GENITAL ORGANS: No gross abnormality. LYMPH NODES: No greater than 1cm abdominal or pelvic lymph nodes are appreciated. AORTA: No significant abnormality. OSSEOUS STRUCTURES: No significant abnormality is seen. OTHER: IVC filter in place. No abscess or free air. IMPRESSION: 1. Correlate for gastroenteritis colitis.
[2021-02-10] MEDS ORDERED: PANTOPRAZOLE 40 MG/10 ML VIAL IVP STA (11:01)
[2021-02-10] MEDS ORDERED: diphenhydrAMINE 50 MG/ML 1 ML VIAL IVP STA (11:01)
[2021-02-10 12:37] VITALS: BP 110/78; PULSE 78; RESP 16; TEMP 97.8
== END 2021-02-10 12:41 | disposition home or self-care (01) ==
LOC: EC 08:27
DX: R11.2 Nausea with vomiting, unspecified (principal); F32.9 Major depressive disorder, single episode, unspecified; Z88.0 Allergy status to penicillin; Z88.2 Allergy status to sulfonamides; Z86.711 Personal history of pulmonary embolism
CPT/HCPCS: 99284; 96374; 96375 ×3; 96376; 96372; 96361 ×3; 36415; 80053; 82150; 83690; 85025; 85610; 85730; 81003; 74177; J1200; J0500; J2405; C9113; Q9967

== ENCOUNTER → 2021-04-08 | Outpatient (CLI) | payer BC ==
--- NOTE | 2021-04-08 10:56 | XR ---
EXAMINATION TYPE: XR lumbosacral spine min 4V DATE OF EXAM: 04/08/2021 CLINICAL HISTORY: Low back pain. Fall injury 6 months ago. TECHNIQUE: Frontal, lateral, dynamic flexion and extension lateral, and oblique images of the lumbar spine are obtained. COMPARISON: CT lumbar spine October 26, 2020. Lumbar spine x-ray June 03, 2019 FINDINGS: There are 5 lumbar type vertebral bodies redemonstrated. The lumbar spine shows stable an d satisfactory alignment without evidence of acute fracture or dislocation. Vertebral body heights an d disk space heights are within normal limits. No suspicious focal subluxation or increase disc spa ce narrowing on dynamic flexion and extension lateral images. The oblique images appear within normal limits. Overlying IVC filter right L2-L3 level redemonstrated. IMPRESSION: As above.
== END | disposition home or self-care (01) ==
LOC: RADXRMAIN 09:55
PROVIDERS: ATTEND Neurological Surgery
DX: M54.50 Low back pain, unspecified (principal)
CPT/HCPCS: 72110

== ENCOUNTER 2021-07-14 20:38 | Emergency (ER) | payer BC, OTHER ==
[2021-07-14 21:48] VITALS: TEMP 97.8
[2021-07-15] MEDS ORDERED: ONDANSETRON 4 MG/2 ML VIAL IVP STA (01:04)
[2021-07-15] MEDS ORDERED: SODIUM CHLORIDE 0.9% 1,000 ML IV STA (01:04)
[2021-07-15] MEDS ORDERED: FAMOTIDINE 20 MG/2 ML VIAL IV STA (01:05)
--- NOTE | 2021-07-15 01:29 | ED ---
Nausea/Vomiting/Diarrhea HPI - General Chief complaint: Nausea/Vomiting/Diarrhea Stated complaint: Vomiting,Congestion Time Seen by Provider: 07/15/21 00:43 Source: patient Mode of arrival: wheelchair Limitations: no limitations - History of Present Illness Initial comments: Patient is a 36-year-old man who presents to be evaluated for nausea vomiting a nd diarrhea. He states that it started approximately 3 days ago he presents because he is not really keeping anything down today. The patient denies fever or chills. No abdominal pains. No hematemesis or bloody or dark tarry stools. MD complaint: nausea, vomiting, diarrhea -: days(s) Description of Vomiting: food contents Description of Diarrhea: water Associated Abdominal Pain: No Severity scale (1-10): 0 Consistency: constant Improves with: none Worsens with: none Associated Symptoms: nausea/vomiting - Related Data Home Medications Medication Instructions Recorded Confirmed Multivitamins, Thera [Multivitamin 1 tab PO DAILY 10/26/20 10/26/20 (formulary)] Pantoprazole Sodium [Protonix] 40 mg PO HS 10/26/20 10/26/20 Rivaroxaban [Xarelto] 10 mg PO HS 10/26/20 10/26/20 Topiramate [Topamax] 50 mg PO BID 10/26/20 10/26/20 Previous Rx's Medication Instructions Recorded predniSONE 50 mg PO DAILY #5 tab 10/26/20 Metoclopramide HCl [Reglan] 10 mg PO Q6HR PRN #15 tablet 02/10/21 Ondansetron Odt [Zofran ODT] 4 mg PO Q8HR PRN #10 tab 07/15/21 Allergies Allergy/AdvReac Type Severity Reaction Status Date / Time Penicillins Allergy Anaphylaxis Verified 07/14/21 21:45 Sulfa (Sulfonamide Allergy Itching Verified 07/14/21 21:45 Antibiotics) Review of Systems ROS Statement: Those systems with pertinent positive or pertinent negative responses have been documented in the HPI. ROS Other: All systems not noted in ROS Statement are negative. Constitutional: Denies: fever, chills Respiratory: Denies: cough, dyspnea Cardiovascular: Denies: chest pain, palpitations, edema Gastrointestinal: Reports: nausea, vomiting, diarrhea. Denies: constipation, hematemesis, melena, hematochezia Genitourinary: Denies: dysuria, hematuria, testicular pain Musculoskeletal: Denies: back pain Skin: Denies: rash Neurological: Denies: headache, weakness Past Medical History Past Medical History: Pulmonary Embolus (PE) Additional Past Medical History / Comment(s): 2010 BLOOD CLOT AFTER HEMORRHOID SX, HAD AN IVC FILTER INSERTED BUT SHORTLY AFTER THAT WAS FOUND TO HAVE 2 BLOOD CLOTS IN EACH LUNG." IT WAS FOUND THAT THE IVC FILTER WAS MISS PLACED AND DID'NT FUNCTION INTENDED.SO PT WAS CONTINUED ON BLOOD THINNERS. "I WAS TESTED FOR FACTOR FIVE-THEY DID A HOLE PANEL, IT WAS NEG. MOM AND AUNT HAVE LACK OF ABILTY TO CLOT.HX BIPOLAR, PNE X3, SEASONAL ALLERGIES History of Any Multi-Drug Resistant Organisms: None Reported Additional Past Surgical History / Comment(s): IVC filter Past Anesthesia/Blood Transfusion Reactions: Motion Sickness Past Psychological History: Anxiety, Depression Smoking Status: Never smoker Past Alcohol Use History: None Reported Past Drug Use History: None Reported - Past Family History Father History Unknown: Yes Mother Additional Family Medical History / Comment(s): "LACK OF ABILTY TO CLOT", SMOK ER, ALCOHOLIC, ANX/DEPRESSION, GLAUCOMA, BREAST CA, General Exam Limitations: no limitations General appearance: alert, in no apparent distress Head exam: Present: atraumatic, normocephalic Eye exam: Present: normal appearance. Absent: scleral icterus, conjunctival injection Respiratory exam: Present: normal lung sounds bilaterally. Absent: respiratory distress, wheezes, rales, rhonchi, stridor Cardiovascular Exam: Present: regular rate, normal rhythm, normal heart sounds. Absent: systolic murmur, diastolic murmur, rubs, gallop GI/Abdominal exam: Present: soft. Absent: distended, tenderness, guarding, rebound, rigid, mass Extremities exam: Present: normal inspection, normal capillary refill Back exam: Present: normal inspection Neurological exam: Present: alert Skin exam: Present: warm, dry, intact, normal color. Absent: rash Course Vital Signs 07/14/21 07/15/21 21:45 02:20 Temperature 97.8 F Pulse Rate 87 67 Respiratory 20 18 Rate Blood Pressure 129/88 136/86 O2 Sat by Pulse 98 99 Oximetry Medical Decision Making - Lab Data Result diagrams: 07/15/21 02:20 07/15/21 02:20 Lab Results 07/15/21 07/15/21 07/15/21 Range/Units 02:20 02:20 02:20 WBC 7.6 (3.8-10.6) k/uL RBC 5.05 (4.30-5.90) m/uL Hgb 16.2 (13.0-17.5) gm/dL Hct 46.9 (39.0-53.0) % MCV 92.8 (80.0-100.0) fL MCH 32.1 (25.0-35.0) pg MCHC 34.6 (31.0-37.0) g/dL RDW 14.0 (11.5-15.5) % Plt Count 207 (150-450) k/uL MPV 9.0 Neutrophils % 48 % Lymphocytes % 37 % Monocytes % 10 % Eosinophils % 2 % Basophils % 1 % Neutrophils # 3.6 (1.3-7.7) k/uL Lymphocytes # 2.8 (1.0-4.8) k/uL Monocytes # 0.7 (0-1.0) k/uL Eosinophils # 0.1 (0-0.7) k/uL Basophils # 0.0 (0-0.2) k/uL Sodium 139 (137-145) mmol/L Potassium 4.2 (3.5-5.1) mmol/L Chloride 105 (98-107) mmol/L Carbon Dioxide 28 (22-30) mmol/L Anion Gap 6 mmol/L BUN 16 (9-20) mg/dL Creatinine 1.02 (0.66-1.25) mg/dL Est GFR (CKD-EPI)AfAm >90 (>60 ml/min/1.73 sqM) Est GFR (CKD-EPI)NonAf >90 (>60 ml/min/1.73 sqM) Glucose 102 H (74-99) mg/dL Calcium 9.0 (8.4-10.2) mg/dL Total Bilirubin 1.4 H (0.2-1.3) mg/dL AST 34 (17-59) U/L ALT 63 H (4-49) U/L Alkaline Phosphatase 89 (38-126) U/L Total Protein 7.1 (6.3-8.2) g/dL Albumin 4.0 (3.5-5.0) g/dL Amylase 77 (30-110) U/L Lipase 190 (23-300) U/L Urine Color Yellow Urine Appearance Clear (Clear) Urine pH 6.0 (5.0-8.0) Ur Specific [place] 1.028 (1.001-1.035) Urine Protein Trace H (Negative) Urine Glucose (UA) Negative (Negative) Urine Ketones Negative (Negative) Urine Blood Negative (Negative) Urine Nitrite Negative (Negative) Urine Bilirubin Negative (Negative) Urine Urobilinogen 2.0 (<2.0) mg/dL Ur Leukocyte Esterase Negative (Negative) Disposition Clinical Impression: Vomiting and diarrhea Disposition: HOME SELF-CARE Condition: Good Instructions (If sedation given, give patient instructions): Acute Nausea and Vomiting (ED), Acute Diarrhea (ED) Prescriptions: Ondansetron Odt [Zofran ODT] 4 mg PO Q8HR PRN #10 tab PRN Reason: Nausea Is patient prescribed a controlled substance at d/c from ED?: No Referrals: Patrice Alcala [Primary Care Provider] - 1-2 days
[2021-07-15 02:21] VITALS: RESP 18
[2021-07-15 02:28] LABS: Basophils % (A) 1 %; Eosinophils # (A) 0.1 k/uL (0-0.7); Eosinophils % (A) 2 %; HCT 46.9 % (39.0-53.0); HGB 16.2 gm/dL (13.0-17.5); Lymphocytes # (A) 2.8 k/uL (1.0-4.8); Lymphocytes % (A) 37 %; MCH 32.1 pg (25.0-35.0); MCHC 34.6 g/dL (31.0-37.0); MCV 92.8 fL (80.0-100.0); Monocytes # (A) 0.7 k/uL (0-1.0); Monocytes % (A) 10 %; Neutrophils # (A) 3.6 k/uL (1.3-7.7); Neutrophils % (A) 48 %; Platelet Count 207 k/uL (150-450); RBC 5.05 m/uL (4.30-5.90); WBC 7.6 k/uL (3.8-10.6)
[2021-07-15 02:29] LABS: Appearance,Urine Clear (Clear); Bilirubin,Urine Negative (Negative); Blood,Urine Negative (Negative); Color,Urine Yellow; Glucose,Urine (UA) Negative (Negative); Ketones,Urine Negative (Negative); Leukocyte Esterase,Urine Negative (Negative); Nitrite,Urine Negative (Negative); Protein,Urine Trace (Negative); Specific Gravity,Urine 1.028 (1.001-1.035)
[2021-07-15 02:37] LABS: ALT 63 U/L (4-49); AST 34 U/L (17-59); African American GFR (CKD) >90 (>60 ml/min/1.73 sqM); Alkaline Phosphatase 89 U/L (38-126); Amylase 77 U/L (30-110); Anion Gap 6 mmol/L; Blood Urea Nitrogen 16 mg/dL (9-20); Carbon Dioxide 28 mmol/L (22-30); Chloride 105 mmol/L (98-107); Glucose 102 mg/dL (74-99); Lipase 190 U/L (23-300); Non-African American GFR(CKD) >90 (>60 ml/min/1.73 sqM); Potassium 4.2 mmol/L (3.5-5.1); Sodium 139 mmol/L (137-145); Total Bilirubin 1.4 mg/dL (0.2-1.3); Total Protein 7.1 g/dL (6.3-8.2)
[2021-07-15 04:23] VITALS: BP 132/83; PULSE 90
== END 2021-07-15 04:23 | disposition home or self-care (01) ==
LOC: EC 20:38
DX: R11.2 Nausea with vomiting, unspecified (principal); R19.7 Diarrhea, unspecified; F32.A Depression, unspecified; F41.9 Anxiety disorder, unspecified; Z79.01 Long term (current) use of anticoagulants; Z79.899 Other long term (current) drug therapy; Z86.711 Personal history of pulmonary embolism
CPT/HCPCS: 36415; 80053; 82150; 83690; 85025; 81003; 99284; 96374; 96375; J2405

== ENCOUNTER 2021-07-21 10:18 | Emergency (ER) | payer OTHER, BC ==
[2021-07-21 10:24] VITALS: TEMP 98.8
--- NOTE | 2021-07-21 11:52 | XR ---
EXAMINATION TYPE: XR elbow complete 3 views LT, XR femur 2 views LT DATE OF EXAM: 07/21/2021 COMPARISON: NONE HISTORY: 36-year-old male fall, pain FINDINGS: Left elbow: No joint effusion. There may be some mild posterior soft tissue swelling. No acute fracture, subluxat ion, or dislocation. Left femur: There is mild degenerative spurring at the left hip. Possible mild superolateral joint space narrowin g at the hip. No acute fracture is identified. IMPRESSION: 1. Left elbow: There may be some mild posterior soft tissue swelling. No acute osseous adenopathy see n. 2. Left femur: Mild, early left hip OA, somewhat unusual for patient's age. No acute osseous abnormal ity seen.
--- NOTE | 2021-07-21 12:06 | ED ---
Fall HPI - General Chief Complaint: Fall Stated Complaint: Fall/blood thinners Time Seen by Provider: 07/21/21 10:55 Source: patient, RN notes reviewed Mode of arrival: wheelchair Limitations: no limitations - History of Present Illness Initial Comments: This a 36-year-old male presents emergency Department chief complaint of a fall. Patient states that he has some nerve damage to his left leg states he was going up a step states he slipped falling onto his left side of his left elbow pain, left thigh pain. Patient states that he was concerned because of pain and prior issues. Patient denies any head injury patient is able to family. Denies any back pain this time. Denies bowel bladder contents retention. Patient has no other injuries from his fall. - Related Data Home Medications Medication Instructions Recorded Confirmed Rivaroxaban [Xarelto] 10 mg PO HS 10/26/20 07/21/21 DULoxetine HCL [Cymbalta] 30 mg PO DAILY 07/21/21 07/21/21 Gabapentin 900 mg PO TID 07/21/21 07/21/21 Topiramate [Topamax] 50 mg PO BID 07/21/21 07/21/21 traMADol HCL 50 mg PO TID PRN 07/21/21 07/21/21 Allergies Allergy/AdvReac Type Severity Reaction Status Date / Time Penicillins Allergy Anaphylaxis Verified 07/21/21 11:14 Sulfa (Sulfonamide Allergy Itching Verified 07/21/21 11:14 Antibiotics) Review of Systems ROS Statement: Those systems with pertinent positive or pertinent negative responses have been documented in the HPI. ROS Other: All systems not noted in ROS Statement are negative. Past Medical History Past Medical History: Pulmonary Embolus (PE) Additional Past Medical History / Comment(s): 2010 BLOOD CLOT AFTER HEMORRHOID SX, HAD AN IVC FILTER INSERTED BUT SHORTLY AFTER THAT WAS FOUND TO HAVE 2 BLOOD CLOTS IN EACH LUNG." IT WAS FOUND THAT THE IVC FILTER WAS MISS PLACED AND DID'NT FUNCTION INTENDED.SO PT WAS CONTINUED ON BLOOD THINNERS. "I WAS TESTED FOR FACTOR FIVE-THEY DID A HOLE PANEL, IT WAS NEG. MOM AND AUNT HAVE LACK OF ABILTY TO CLOT.HX BIPOLAR, PNE X3, SEASONAL ALLERGIES History of Any Multi-Drug Resistant Organisms: None Reported Additional Past Surgical History / Comment(s): IVC filter Past Anesthesia/Blood Transfusion Reactions: Motion Sickness Past Psychological History: Anxiety, Depression Smoking Status: Never smoker Past Alcohol Use History: None Reported Past Drug Use History: None Reported - Past Family History Father History Unknown: Yes Mother Additional Family Medical History / Comment(s): "LACK OF ABILTY TO CLOT", SMO KER, ALCOHOLIC, ANX/DEPRESSION, GLAUCOMA, BREAST CA, General Exam Limitations: no limitations General appearance: alert, in no apparent distress Head exam: Present: atraumatic, normocephalic, normal inspection Neck exam: Present: full ROM Respiratory exam: Present: normal lung sounds bilaterally. Absent: respiratory distress, wheezes, rales, rhonchi, stridor Cardiovascular Exam: Present: regular rate, normal rhythm, normal heart sounds. Absent: systolic murmur, diastolic murmur, rubs, gallop, clicks Extremities exam: Present: other (Left upper leg over the femur region there is mild tenderness no ecchymotic areas no erythema there is diffuse tenderness with no obvious swelling leg is neurovascularly intact patient's full range of motion of the left hip and left knee left elbow mild tenderness of the radial head, neurovascular ) Neurological exam: Present: alert, oriented X3, CN II-XII intact, reflexes normal. Absent: motor sensory deficit Course Vital Signs 07/21/21 10:21 Temperature 98.8 F Pulse Rate 96 Respiratory 18 Rate Blood Pressure 152/92 O2 Sat by Pulse 95 Oximetry Medical Decision Making - Medical Decision Making X-ray does not show an acute fracture. Patient will be discharged in stable condition return parameters were discussed. Disposition Clinical Impression: Fall, Contusion of left thigh, Left elbow contusion Disposition: HOME SELF-CARE Condition: Stable Instructions (If sedation given, give patient instructions): Contusion in Adults (ED) Additional Instructions: Please return to the Emergency Department if symptoms worsen or any other concerns. Is patient prescribed a controlled substance at d/c from ED?: No Referrals: Patrice Alcala [Primary Care Provider] - 1-2 days Time of Disposition: 12:06
[2021-07-21 12:32] VITALS: BP 155/78; PULSE 93; RESP 16
== END 2021-07-21 12:30 | disposition home or self-care (01) ==
LOC: EC 10:18
DX: S70.12XA Contusion of left thigh, initial encounter (principal); S50.02XA Contusion of left elbow, initial encounter; F32.A Depression, unspecified; F41.9 Anxiety disorder, unspecified; Z79.01 Long term (current) use of anticoagulants; Z79.899 Other long term (current) drug therapy; Z86.711 Personal history of pulmonary embolism; W01.0XXA Fall on same level from slipping, tripping and stumbling without subsequent striking against object, initial encounter
CPT/HCPCS: 99284

== ENCOUNTER 2021-10-28 20:02 | Emergency (ER) | payer BC, OTHER ==
[2021-10-28] MEDS ORDERED: HYDROmorphone 0.5 MG/0.5 ML SYRINGE IVP STA (20:25)
[2021-10-28] MEDS ORDERED: SODIUM CHLORIDE 0.9% 1,000 ML IV STA (20:25)
[2021-10-28] MEDS ORDERED: PANTOPRAZOLE 40 MG/10 ML VIAL IVP STA (20:25)
--- NOTE | 2021-10-28 20:30 | ED ---
General Adult HPI - General Chief complaint: GI Bleed Stated complaint: GI Bleed Time Seen by Provider: 10/28/21 20:15 Source: patient, family, RN notes reviewed, old records reviewed Mode of arrival: ambulatory Limitations: no limitations - History of Present Illness Initial comments: Well-appearing 36-year-old male, alert and oriented 4, presents with complaints of 2 episodes of spotting rectal bleeding yesterday and a large amount of blood filling the toilet today at 5:30. Patient is on Xarelto for history of PE. Denies any abdominal pain, no nausea vomiting or fevers. -: days(s) (2) Severity scale (1-10): 8 Consistency: constant Improves with: none Worsens with: other (bowel movement) Associated Symptoms: malaise Treatments Prior to Arrival: none - Related Data Home Medications Medication Instructions Recorded Confirmed Rivaroxaban [Xarelto] 10 mg PO HS 10/26/20 07/21/21 DULoxetine HCL [Cymbalta] 30 mg PO DAILY 07/21/21 07/21/21 Gabapentin 900 mg PO TID 07/21/21 07/21/21 Topiramate [Topamax] 50 mg PO BID 07/21/21 07/21/21 traMADol HCL 50 mg PO TID PRN 07/21/21 07/21/21 Allergies Allergy/AdvReac Type Severity Reaction Status Date / Time Penicillins Allergy Anaphylaxis Verified 10/28/21 20:06 Sulfa (Sulfonamide Allergy Itching Verified 10/28/21 20:06 Antibiotics) Review of Systems ROS Statement: Those systems with pertinent positive or pertinent negative responses have been documented in the HPI. ROS Other: All systems not noted in ROS Statement are negative. Past Medical History Past Medical History: Pulmonary Embolus (PE) Additional Past Medical History / Comment(s): 2010 BLOOD CLOT AFTER HEMORRHOID SX, HAD AN IVC FILTER INSERTED BUT SHORTLY AFTER THAT WAS FOUND TO HAVE 2 BLOOD CLOTS IN EACH LUNG." IT WAS FOUND THAT THE IVC FILTER WAS MISS PLACED AND DID'NT FUNCTION INTENDED.SO PT WAS CONTINUED ON BLOOD THINNERS. "I WAS TESTED FOR FACTOR FIVE-THEY DID A HOLE PANEL, IT WAS NEG. MOM AND AUNT HAVE LACK OF ABILTY TO CLOT.HX BIPOLAR, PNE X3, SEASONAL ALLERGIES History of Any Multi-Drug Resistant Organisms: None Reported Additional Past Surgical History / Comment(s): IVC filter Past Anesthesia/Blood Transfusion Reactions: Motion Sickness Past Psychological History: Anxiety, Depression Smoking Status: Never smoker Past Alcohol Use History: None Reported Past Drug Use History: None Reported - Past Family History Father History Unknown: Yes Mother Additional Family Medical History / Comment(s): "LACK OF ABILTY TO CLOT", SMOKER, ALCOHOLIC, ANX/DEPRESSION, GLAUCOMA, BREAST CA, General Exam Limitations: no limitations General appearance: alert, in no apparent distress Eye exam: Present: normal appearance, EOMI. Absent: scleral icterus, conjunctival injection ENT exam: Present: normal exam, normal oropharynx, mucous membranes moist Neck exam: Present: normal inspection, full ROM. Absent: tenderness, menin gismus Respiratory exam: Present: normal lung sounds bilaterally. Absent: respiratory distress, accessory muscle use Cardiovascular Exam: Present: regular rate, normal rhythm Rectal exam: Present: normal rectal tone, bloody stool, hemorrhoids, tenderness. Absent: fecal impaction Extremities exam: Present: normal capillary refill Back exam: Absent: tenderness, CVA tenderness (R), CVA tenderness (L), rash noted Neurological exam: Present: alert, oriented X3 Psychiatric exam: Present: normal affect, normal mood Skin exam: Present: warm, dry, pallor. Absent: cyanosis, diaphoretic Course Vital Signs 10/28/21 10/28/21 10/28/21 20:06 21:28 22:16 Temperature 98 F 98.2 F 98.1 F Pulse Rate 71 67 67 Respiratory 16 18 16 Rate Blood Pressure 150/91 124/102 144/94 O2 Sat by Pulse 98 98 100 Oximetry Medical Decision Making - Medical Decision Making Patient was given Dilaudid for his rectal pain and a liter of IV fluids. Hemoglobin 15.8, hematocrit 46.6, platelet count 214. Occult blood positive. Abdomen is soft and nontender. Lungs sounds are clear. Patient states he has a history of hemorrhoids and his bleeding is likely related to hemorrhoids. Worsened by use of xarelto which he was placed on for pulmonary embolism in 2011. Vital signs are stable at discharge. He is hemodynamically stable. I did discuss with patient and family member the importance of following up with his family care doctor and cosmetic chemist to discuss scheduling a colonoscopy. I encouraged him to go to [facility] for GI services which are not available here at this hospital at this time if recurrence. With any new, emergent or concerning symptoms he can return to the closest emergency room. Patient and family member are agreeable to this plan of care. - Lab Data Result diagrams: 10/28/21 20:47 10/28/21 20:47 Lab Results 10/28/21 10/28/21 10/28/21 Range/Units 20:47 20:47 20:47 WBC 7.9 (3.8-10.6) k/uL RBC 5.06 (4.30-5.90) m/uL Hgb 15.8 (13.0-17.5) gm/dL Hct 46.6 (39.0-53.0) % MCV 92.1 (80.0-100.0) fL MCH 31.2 (25.0-35.0) pg MCHC 33.9 (31.0-37.0) g/dL RDW 13.1 (11.5-15.5) % Plt Count 214 (150-450) k/uL MPV 8.9 Neutrophils % 49 % Lymphocytes % 37 % Monocytes % 8 % Eosinophils % 2 % Basophils % 1 % Neutrophils # 3.9 (1.3-7.7) k/uL Lymphocytes # 3.0 (1.0-4.8) k/uL Monocytes # 0.6 (0-1.0) k/uL Eosinophils # 0.2 (0-0.7) k/uL Basophils # 0.1 (0-0.2) k/uL PT 11.2 (9.0-12.0) sec INR 1.0 (<1.2) APTT 25.1 (22.0-30.0) sec Sodium (137-145) mmol/L Potassium (3.5-5.1) mmol/L Chloride (98-107) mmol/L Carbon Dioxide (22-30) mmol/L Anion Gap mmol/L BUN (9-20) mg/dL Creatinine (0.66-1.25) mg/dL Est GFR (CKD-EPI)AfAm (>60 ml/min/1.73 sqM) Est GFR (CKD-EPI)NonAf (>60 ml/min/1.73 sqM) Glucose (74-99) mg/dL Plasma Lactic Acid Gonzalez (0.7-2.0) mmol/L Calcium (8.4-10.2) mg/dL Total Bilirubin (0.2-1.3) mg/dL AST (17-59) U/L ALT (4-49) U/L Alkaline Phosphatase (38-126) U/L Total Protein (6.3-8.2) g/dL Albumin (3.5-5.0) g/dL Stool Occult Blood Positive (Negative) 10/28/21 10/28/21 Range/Units 20:47 20:47 WBC (3.8-10.6) k/uL RBC (4.30-5.90) m/uL Hgb (13.0-17.5) gm/dL Hct (39.0-53.0) % MCV (80.0-100.0) fL MCH (25.0-35.0) pg MCHC (31.0-37.0) g/dL RDW (11.5-15.5) % Plt Count (150-450) k/uL MPV Neutrophils % % Lymphocytes % % Monocytes % % Eosinophils % % Basophils % % Neutrophils # (1.3-7.7) k/uL Lymphocytes # (1.0-4.8) k/uL Monocytes # (0-1.0) k/uL Eosinophils # (0-0.7) k/uL Basophils # (0-0.2) k/uL PT (9.0-12.0) sec INR (<1.2) APTT (22.0-30.0) sec Sodium 141 (137-145) mmol/L Potassium 4.0 (3.5-5.1) mmol/L Chloride 109 H (98-107) mmol/L Carbon Dioxide 22 (22-30) mmol/L Anion Gap 10 mmol/L BUN 11 (9-20) mg/dL Creatinine 1.19 (0.66-1.25) mg/dL Est GFR (CKD-EPI)AfAm >90 (>60 ml/min/1.73 sqM) Est GFR (CKD-EPI)NonAf 79 (>60 ml/min/1.73 sqM) Glucose 93 (74-99) mg/dL Plasma Lactic Acid Gonzalez 1.4 (0.7-2.0) mmol/L Calcium 9.5 (8.4-10.2) mg/dL Total Bilirubin 1.8 H (0.2-1.3) mg/dL AST 30 (17-59) U/L ALT 51 H (4-49) U/L Alkaline Phosphatase 84 (38-126) U/L Total Protein 7.9 (6.3-8.2) g/dL Albumin 4.6 (3.5-5.0) g/dL Stool Occult Blood (Negative) Disposition Clinical Impression: Rectal bleeding Disposition: HOME SELF-CARE Condition: Good Instructions (If sedation given, give patient instructions): Gastrointestinal Bleeding (ED) Additional Instructions: Your labs today show a Hemoglobin 15.8, hematocrit 46.6, platelet count 214. Follow-up with your primary care doctor on Sunday. If you have further episodes of rectal bleeding, you can return to the emergency room. However I do recommend you follow up with a facility that has GI coverage. I recommend [facility]. Is patient prescribed a controlled substance at d/c from ED?: No Referrals: Patrice Alcala [Primary Care Provider] - 1-2 days Time of Disposition: 22:05
[2021-10-28 21:03] LABS: Basophils # (A) 0.1 k/uL (0-0.2); Basophils % (A) 1 %; Eosinophils # (A) 0.2 k/uL (0-0.7); Eosinophils % (A) 2 %; HCT 46.6 % (39.0-53.0); HGB 15.8 gm/dL (13.0-17.5); Lymphocytes % (A) 37 %; MCH 31.2 pg (25.0-35.0); MCHC 33.9 g/dL (31.0-37.0); MCV 92.1 fL (80.0-100.0); Mean Platelet Volume 8.9; Monocytes # (A) 0.6 k/uL (0-1.0); Monocytes % (A) 8 %; Neutrophils # (A) 3.9 k/uL (1.3-7.7); Neutrophils % (A) 49 %; Platelet Count 214 k/uL (150-450); RBC 5.06 m/uL (4.30-5.90); RDW 13.1 % (11.5-15.5); WBC 7.9 k/uL (3.8-10.6)
[2021-10-28 21:12] LABS: Partial Thromboplastin Time 25.1 sec (22.0-30.0); Prothrombin Time 11.2 sec (9.0-12.0)
[2021-10-28 21:14] LABS: ALT 51 U/L (4-49); AST 30 U/L (17-59); African American GFR (CKD) >90 (>60 ml/min/1.73 sqM); Albumin 4.6 g/dL (3.5-5.0); Alkaline Phosphatase 84 U/L (38-126); Anion Gap 10 mmol/L; Blood Urea Nitrogen 11 mg/dL (9-20); Calcium 9.5 mg/dL (8.4-10.2); Carbon Dioxide 22 mmol/L (22-30); Chloride 109 mmol/L (98-107); Glucose 93 mg/dL (74-99); Non-African American GFR(CKD) 79 (>60 ml/min/1.73 sqM); Sodium 141 mmol/L (137-145); Total Bilirubin 1.8 mg/dL (0.2-1.3); Total Protein 7.9 g/dL (6.3-8.2)
[2021-10-28 21:30] VITALS: PULSE 67
[2021-10-28 22:17] VITALS: BP 144/94; RESP 16; TEMP 98.1
== END 2021-10-28 22:00 | disposition home or self-care (01) ==
LOC: EC 20:02
DX: K62.5 Hemorrhage of anus and rectum (principal); Z88.0 Allergy status to penicillin; Z88.2 Allergy status to sulfonamides
CPT/HCPCS: 36415; 80053; 83605; 85025; 85610; 85730; 82272; 99283; 96374; 96375; 96361; C9113; J1170

== ENCOUNTER 2022-01-19 08:50 | Day surgery (SDC) | payer BC, OTHER ==
[2022-01-17 12:50] VITALS: BMI 32.5
--- NOTE | 2022-01-19 07:40 | P.GSHP ---
History of Present Illness H&P Date: 01/19/22 CHIEF COMPLAINT: GERD and colon screen HISTORY OF PRESENT ILLNESS: The patient is a 36-year-old male who presents with gastroesophageal reflux disease and need for colon screen. Upper and lower endoscopy were offered for further evaluation and management. PAST MEDICAL HISTORY: Please see list. PAST SURGICAL HISTORY: Please see list. MEDICATIONS: Please see list. ALLERGIES: Please see list. SOCIAL HISTORY: No illicit drug use FAMILY HISTORY: No reports of Crohn disease or ulcerative colitis. REVIEW OF ORGAN SYSTEMS: CONSTITUTIONAL: No reports of fevers or chills. GI: Denies any blood in stools or constipation. PHYSICAL EXAM: VITAL SIGNS: Stable GENERAL: Well-developed pleasant in no acute distress. HEENT: No scleral icterus. Extraocular movements grossly intact. Moist buccal mucosa. NECK: Supple without lymphadenopathy. CHEST: Unlabored respirations. Equal bilateral excursions. CARDIOVASCULAR: Regular rate and rhythm. Distal 2+ pulses. ABDOMEN: Soft, nondistended. MUSCULOSKELETAL: No clubbing, cyanosis, or edema. ASSESSMENT: 1. Gastroesophageal reflux disease 2. Colon screen. PLAN: 1. Recommend proceeding with an upper and lower endoscopy Past Medical History Past Medical History: GERD/Reflux, GI Bleed, Pulmonary Embolus (PE) Additional Past Medical History / Comment(s): 2010 BLOOD CLOT AFTER HEMORRHOID SX, SEASONAL ALLERGIES, PAST HX GI BLEED-2010. PERMANENT NERVE DAMAGE LEFT LEG, History of Any Multi-Drug Resistant Organisms: None Reported Additional Past Surgical History / Comment(s): IVC filter. HEMORRHOIDECTOMY. C OLONOSCOPY. PERMANENT SPINAL STIMULATOR-12/23/2021. BACK INJECTIONS Past Anesthesia/Blood Transfusion Reactions: Motion Sickness Smoking Status: Never smoker - Past Family History Father History Unknown: Yes Mother Family Medical History: Cancer Additional Family Medical History / Comment(s): "LACK OF ABILTY TO CLOT" (NOT FACTOR V), SMOKER, ALCOHOLIC, ANX/DEPRESSION, GLAUCOMA, BREAST CA, Medications and Allergies Home Medications Medication Instructions Recorded Confirmed Type Rivaroxaban [Xarelto] 10 mg PO HS 10/26/20 01/17/22 History Gabapentin 900 mg PO TID 07/21/21 01/17/22 History Topiramate [Topamax] 50 mg PO BID 07/21/21 01/17/22 History traMADol HCL 50 mg PO TID PRN 07/21/21 01/17/22 History Allergies Allergy/AdvReac Type Severity Reaction Status Date / Time Penicillins Allergy Anaphylaxis Verified 01/17/22 12:33 Sulfa (Sulfonamide Allergy Itching Verified 01/17/22 12:33 Antibiotics)
[~2022-01-19 08:50] MED LIST: LACTATED RINGERS 1,000 ML IV SCH; LIDOCAINE 1% (10MG/ML) FOR IV START INTRADERMA PRN
[2022-01-19 09:26] VITALS: RESP 16; TEMP 98.1
[2022-01-19] MEDS ORDERED: LIDOCAINE 2% INJ 20 MG/ML (2 ML VIAL) ONE (10:04)
[2022-01-19] MEDS ORDERED: fentaNYL (PF) 50 MCG/ML 2 ML AMP ONE (10:04)
[2022-01-19] MEDS ORDERED: PROPOFOL 10 MG/ML 20 ML VIAL IV ONE (10:04)
[2022-01-19] MEDS ORDERED: MIDAZOLAM 2 MG/2 ML VIAL ONE (10:04)
--- NOTE | 2022-01-19 10:41 | P.PCN ---
Date of Procedure: 01/19/22 Description of Procedure: PREOPERATIVE DIAGNOSIS: Gastrointestinal bleed Change in bowel habits POSTOPERATIVE DIAGNOSIS: Colitis OPERATION: Colonoscopy to the ileocecal valve and appendiceal orifice, cecum Colonoscopy with cold forceps biopsy SURGEON: Kaitlynn Gallo MD. ANESTHESIA: MAC. INDICATIONS: The patient is an 36-year-old male with change in bowel habits or blood in stools. Benefits and risks were described and informed consent was obtained. DESCRIPTION OF PROCEDURE: The patient had undergone Sutab prep. The patient had been brought into the operating room and laid in the left lateral decubitus position. After adequate intravenous sedation, the rectum was examined with 2% lidocaine jelly. The prostate was unremarkable. External hemorrhoids were encountered. The rectal tone was within normal limits. No lesions were palpated in the rectal vault. An Olympus colonoscope was advanced until the cecum, ileocecal valve and appendiceal orifice were clearly viewed. The prep was fair. No sigmoid diverticulosis was encountered. Mucosal inflammation of the descending colon was identified with biopsies obtained. Retroflexion of the scope demonstrated grade 2 internal hemorrhoids without active bleeding or inflammation. The colon was desufflated. The patient had tolerated the procedure well. Withdrawal time was over 6 minutes. FINDINGS: Aronchick preparation quality scale 2 (1-5) Internal hemorrhoids, grade 2 External hemorrhoids, grade 2. No arteriovenous malformations. No sigmoid diverticulosis Colitis involving the descending colon with biopsies obtained. RECOMMENDATIONS: Colonoscopy as needed
--- NOTE | 2022-01-19 10:43 | P.PCN ---
Date of Procedure: 01/19/22 Description of Procedure: PREOPERATIVE DIAGNOSIS: Gastroesophageal reflux disease. POSTOPERATIVE DIAGNOSIS: Gastroesophageal reflux disease. Gastritis. OPERATION: Esophagogastroduodenoscopy with biopsies along antrum and duodenum SURGEON: Kaitlynn Gallo MD ANESTHESIA: MAC. INDICATIONS: The patient is a 36-year-old male who presents with reflux disease. Benefits and risks of the procedure were described. Informed consent was obtained. DESCRIPTION: The patient was brought into the endoscopy suite and laid in the left lateral decubitus position. An Olympus gastroscope was passed along the posterior oropharynx down to the distal esophagus where the squamocolumnar junction was encountered at 40 cm from the incisors. The stomach was entered and no bile reflux was found. Additional findings are listed below. Biopsies with cold forceps were obtained of the antrum. The first through third portion of the duodenum was examined. Retroflexion of the scope confirmed Hill grade 2 lower esophageal valve. The squamocolumnar junction demonstrated LA grade B erosive esophagitis. The stomach was desufflated. The patient tolerated the procedure well. FINDINGS: Squamocolumnar junction 40 cm from the incisors. Diaphragmatic hiatus at 40 cm. Hill grade 2 lower esophageal valve. LA grade B erosive esophagitis. Biopsies obtained of duodenum Chronic gastritis with biopsies obtained RECOMMENDATIONS: Upper endoscopy as needed. Plan - Discharge Summary Discharge Rx Participant: No New Discharge Prescriptions: Continue RX: Topiramate [Topamax] 50 mg PO BID RX: Rivaroxaban [Xarelto] 10 mg PO HS RX: Gabapentin 900 mg PO TID RX: traMADol HCL 50 mg PO TID PRN PRN Reason: Pain Discharge Medication List RX: Rivaroxaban [Xarelto] 10 mg PO HS 10/26/20 [History] RX: Gabapentin 900 mg PO TID 07/21/21 [History] RX: Topiramate [Topamax] 50 mg PO BID 07/21/21 [History] RX: traMADol HCL 50 mg PO TID PRN 07/21/21 [History] Follow up Appointment(s)/Referral(s): Kaitlynn Gallo MD [STAFF PHYSICIAN] - 01/31/22 Patient Instructions/Handouts: Gastritis (DC), Colitis (ED) Activity/Diet/Wound Care/Special Instructions: Start blood thinner on 01/21/22 Discharge Disposition: HOME SELF-CARE
[2022-01-19 11:16] VITALS: BP 119/72; PULSE 88
== END 2022-01-19 11:35 | disposition home or self-care (01) ==
LOC: ORWHC2ENDO 08:50
PROVIDERS: ATTEND Surgery Plastic and Reconstructive Surgery
DX: K29.50 Unspecified chronic gastritis without bleeding (principal); K52.9 Noninfective gastroenteritis and colitis, unspecified; K64.4 Residual hemorrhoidal skin tags; K64.1 Second degree hemorrhoids; K21.9 Gastro-esophageal reflux disease without esophagitis; I26.99 Other pulmonary embolism without acute cor pulmonale; Z90.49 Acquired absence of other specified parts of digestive tract; Z79.891 Long term (current) use of opiate analgesic; Z79.811 Long term (current) use of aromatase inhibitors
CPT/HCPCS: 88305; 45380; 43239; J2250; J3010; J2704; J2001

== ENCOUNTER → 2022-02-10 | Outpatient (CLI) | payer BC, OTHER ==
--- NOTE | 2022-02-10 16:12 | NM ---
EXAMINATION TYPE: NM hepatobiliary w EF DATE OF EXAM: 02/10/2022 3:17 PM COMPARISON: CT abdomen pelvis most recent from the 02/10/2021 CLINICAL INDICATION:Male, 36 years old with history of R10.11 RUQ Abd pain; TECHNIQUE: The patient was given 4.33 mCi of Technetium 99m-Mebrofenin as a radiotracer and multiple scintigraphic images were obtained of the abdomen. Gallbladder function was also assessed after the administration of ensure drink and additional scintigraphic images were obtained of the abdomen. A re gion of interest was drawn over the gallbladder and a timing activity curve was generated. The gallbl adder ejection fraction was calculated. FINDINGS: Normal uptake of radiotracer was identified within the liver within 5 minutes with excretion into the hepatic and common biliary ducts within 4 minutes. There was normal progressive washout of the liver over the course of the study. Radiotracer uptake within the gallbladder as well as small bowel activ ity was identified at 4 minutes. Maximum calculated gallbladder ejection fraction is: 89% at 30 minutes (Normal gallbladder ejection fraction is > 35%) IMPRESSION: 1. Normal hepatobiliary scan. 2. Normal ejection fraction.
== END | disposition home or self-care (01) ==
LOC: RADNMMAIN 12:49
PROVIDERS: ATTEND Surgery Plastic and Reconstructive Surgery
DX: R10.11 Right upper quadrant pain (principal)
CPT/HCPCS: 78226; A9537

== ENCOUNTER 2022-06-27 18:46 | Emergency (ER) | payer BC, OTHER ==
--- NOTE | 2022-06-27 18:49 | ED ---
General Adult HPI <Rivka Tristan - Last Filed: 06/27/22 18:49> <Brandie Castrejon - Last Filed: 07/01/22 13:35> - General Stated complaint: AMS Time Seen by Provider: 06/27/22 18:49 - History of Present Illness Initial comments: 37-year-old male presents to the emergency department with numbness and tingling in bilateral upper extremities, facial droop. Patient reports that he woke up yesterday for this. He was seen at urgent care prior to arrival who recommended he be evaluated here. (Rivka Tristan) 37-year-old male with past medical history of pulmonary embolism on anticoagulation who presents to the emergency department reporting "neurologic symptoms". States that for the past 2 days he has had difficulty finding his words. Also reports he's had comprehension issues. He has had a headache and photophobia. He took some aspirin for his pain however states that it did not alleviate his symptoms. He typically does not get migraine headaches. Denies any head trauma. No visual changes. He denies any neck pain or stiffness. No fevers. No sick contacts. He has had some diffuse body aches. Because of the symptoms he went to urgent care where they swabbed him for Covid and influenza. We were both negative. The did refer him to the hospital for further management. He denies previous history of stroke. Denies any chest pain or shortness of breath. No other alleviating, precipitating or modifying factors (Brandie Castrejon) - Related Data Home Medications Medication Instructions Recorded Confirmed Rivaroxaban [Xarelto] 10 mg PO HS 10/26/20 06/27/22 Gabapentin 900 mg PO TID 07/21/21 06/27/22 Topiramate [Topamax] 50 mg PO BID 07/21/21 06/27/22 Fluticasone Propionate 110 Mcg 1 puff INHALATION RT-BID 06/27/22 06/27/22 [Flovent 110 Mcg Inhaler] Allergies Allergy/AdvReac Type Severity Reaction Status Date / Time Penicillins Allergy Anaphylaxis Verified 06/30/22 09:05 Sulfa (Sulfonamide Allergy Itching Verified 06/30/22 09:05 Antibiotics) Review of Systems ROS Other: All systems not noted in ROS Statement are negative. <Rivka Tristan - Last Filed: 06/27/22 18:49> ROS Other: All systems not noted in ROS Statement are negative. <Brandie Castrejon Claudio - Last Filed: 07/01/22 13:35> ROS Statement: Those systems with pertinent positive or pertinent negative responses have been documented in the HPI. Past Medical History Past Medical History: Pulmonary Embolus (PE) Additional Past Medical History / Comment(s): 2010 BLOOD CLOT AFTER HEMORRHOID SX, HAD AN IVC FILTER INSERTED BUT SHORTLY AFTER THAT WAS FOUND TO HAVE 2 BLOOD CLOTS IN EACH LUNG." IT WAS FOUND THAT THE IVC FILTER WAS MISS PLACED AND DID'NT FUNCTION INTENDED.SO PT WAS CONTINUED ON BLOOD THINNERS. "I WAS TESTED FOR FACTOR FIVE-THEY DID A HOLE PANEL, IT WAS NEG. MOM AND AUNT HAVE LACK OF ABILTY TO CLOT.HX BIPOLAR, PNE X3, SEASONAL ALLERGIES History of Any Multi-Drug Resistant Organisms: None Reported Additional Past Surgical History / Comment(s): IVC filter Past Anesthesia/Blood Transfusion Reactions: Motion Sickness Additional Psychological History / Comment(s): AT TIME OF THIS ADMIT. PT DENIES ANY THOUGHTS OF WANTING OF HARM SELF. PT LIVES WITH SIG OTHER AND 7 MONTH OLD DAUGHTER. RECENTLY STARTED WORKING AT [employer] IN [place] [employer] - Past Family History Father History Unknown: Yes Mother Family Medical History: Cancer Additional Family Medical History / Comment(s): "LACK OF ABILTY TO CLOT" (NOT FACTOR V), SMOKER, ALCOHOLIC, ANX/DEPRESSION, GLAUCOMA, BREAST CA, <Rivka Tristan - Last Filed: 06/27/22 18:49> General Exam General appearance: alert, in no apparent distress Head exam: Present: atraumatic, normocephalic, normal inspection Eye exam: Present: normal appearance, PERRL, EOMI. Absent: scleral icterus, conjunctival injection, periorbital swelling ENT exam: Present: normal exam, mucous membranes moist Neck exam: Present: normal inspection. Absent: tenderness, meningismus, lymphadenopathy Respiratory exam: Present: normal lung sounds bilaterally. Absent: respiratory distress, wheezes, rales, rhonchi, stridor Cardiovascular Exam: Present: regular rate, normal rhythm, normal heart sounds. Absent: systolic murmur, diastolic murmur, rubs, gallop, clicks GI/Abdominal exam: Present: soft, normal bowel sounds. Absent: distended, tenderness, guarding, rebound, rigid Extremities exam: Present: normal inspection, full ROM, normal capillary refill. Absent: tenderness, pedal edema, joint swelling, calf tenderness Back exam: Present: normal inspection Neurological exam: Present: alert, oriented X3, CN II-XII intact Psychiatric exam: Present: normal affect, normal mood Skin exam: Present: warm, dry, intact, normal color. Absent: rash <Brandie Castrejon - Last Filed: 07/01/22 13:35> Course Vital Signs 06/27/22 06/27/22 06/28/22 19:44 21:18 00:40 Temperature 98.2 F Pulse Rate 82 67 72 Respiratory 18 18 18 Rate Blood Pressure 136/93 123/78 117/82 O2 Sat by Pulse 98 98 98 Oximetry Medical Decision Making - Lab Data Result diagrams: 06/27/22 20:28 06/27/22 20:28 <Brandie Castrejon A - Last Filed: 07/01/22 13:35> - Medical Decision Making Was pt. sent in by a medical professional or institution (Dr. PA, MARKETING ANALYTICS MANAGER, urgent care, hospital, or custodial...) When possible be specific @ -No Did you speak to anyone other than the patient for history (EMS, parent, family, police, friend...)? What history was obtained from this source @ -No Did you review nursing and triage notes (agree or disagree)? Why? @ -I reviewed and agree with nursing and triage notes Were old charts reviewed (outside hosp., previous admission, EMS record, old EKG, old radiological studies, urgent care reports/EKG's, custodial records)? Report findings @ -No old charts were reviewed Differential Diagnosis (chest pain, altered mental status, abdominal pain women, abdominal pain men, vaginal bleeding, weakness, fever, dyspnea, syncope, headache, dizziness, GI bleed, back pain, seizure, CVA, palpatations, mental health, musculoskeletal)? @ -stroke, complex migraine, dural sinus thrombus, sepsis, brain mass, SDH, SAH EKG interpreted by me (3pts min.). @ -Yes X-rays interpreted by me (1pt min.). @ -Yes CT interpreted by me (1pt min.). @ -Yes U/S interpreted by me (1pt. min.). @ -None done What testing was considered but not performed or refused? (CT, X-rays, U/S, labs)? Why? @ -None What meds were considered but not given or refused? Why? @ -None Did you discuss the management of the patient with other professionals (professionals i.e. , PA, MARKETING ANALYTICS MANAGER, lab, RT, psych nurse, perinatal social worker, supervisor assembly, teacher, traffic officer, counseling case manager)? Give summary @ -No Was smoking cessation discussed for >3mins.? @ -No Was critical care preformed (if so, how long)? @ -No Were there social determinants of health that impacted care today? How? (H omelessness, low income, unemployed, alcoholism, drug addiction, transportation, low edu. Level, literacy, decrease access to med. care, shelter, rehab)? @ -No Was there de-escalation of care discussed even if they declined (Discuss DNR or withdrawal of care, Hospice)? DNR status @ -No What co-morbidities impacted this encounter? (DM, HTN, Smoking, COPD, CAD, Cancer, CVA, ARF, Chemo, Hep., AIDS, mental health diagnosis, sleep apnea, morbid obesity)? @ -None Was patient admitted / discharged? Hospital course, mention meds given and route, prescriptions, significant lab abnormalities, going to OR and other pertinent info. @ -Upon arrival patient was placed into room 3. A thorough history and physical exam was performed. IV access is established and laboratory studies are conducted. Patient does go for CT as well as CT angiography. Demonstrates no acute stroke, hemorrhage or intracranial finding. Patient was given a migraine cocktail and reports improvement in his headache. Patient has a negative stroke scale at this time. I do not appreciate any delay in communication. Patient reports that he does feel better at this time. He will be discharged home and instructed to follow-up with his primary care doctor. If his symptoms continue he may need a neurology evaluation. Return for any new or worsening symptoms. Patient agreeable to this plan and he was discharged home in stable condition Undiagnosed new problem with uncertain prognosis? @ -Yes Drug Therapy requiring intensive monitoring for toxicity (Heparin, Nitro, Insulin, Cardizem)? @ -No Were any procedures done? @ -No Diagnosis/symptom? @ -acute cephalgia, possible complex migraine Acute, or Chronic, or Acute on Chronic? @ -acute Uncomplicated (without systemic symptoms) or Complicated (systemic symptoms)? @ -complicated Side effects of treatment? @ -allergic reaction Exacerbation, Progression, or Severe Exacerbation? @ -No Poses a threat to life or bodily function? How? (Chest pain, USA, [place], pneumonia, PE, COPD, DKA, ARF, appy, cholecystitis, CVA, Diverticulitis, Homicidal, Suicidal, threat to staff... and all critical care pts) @ -No (Brandie Castrejon) - Lab Data Lab Results 06/27/22 06/27/22 06/27/22 Range/Units 20:28 20:28 20:56 WBC 7.2 (3.8-10.6) k/uL RBC 5.38 (4.30-5.90) m/uL Hgb 16.6 (13.0-17.5) gm/dL Hct 49.4 (39.0-53.0) % MCV 91.9 (80.0-100.0) fL MCH 30.9 (25.0-35.0) pg MCHC 33.7 (31.0-37.0) g/dL RDW 13.6 (11.5-15.5) % Plt Count 212 (150-450) k/uL MPV 8.8 Neutrophils % 53 % Lymphocytes % 36 % Monocytes % 7 % Eosinophils % 2 % Basophils % 1 % Neutrophils # 3.8 (1.3-7.7) k/uL Lymphocytes # 2.6 (1.0-4.8) k/uL Monocytes # 0.5 (0-1.0) k/uL Eosinophils # 0.2 (0-0.7) k/uL Basophils # 0.0 (0-0.2) k/uL Sodium 140 (137-145) mmol/L Potassium 4.1 (3.5-5.1) mmol/L Chloride 107 (98-107) mmol/L Carbon Dioxide 26 (22-30) mmol/L Anion Gap 7 mmol/L BUN 11 (9-20) mg/dL Creatinine 0.93 (0.66-1.25) mg/dL Est GFR (CKD-EPI)AfAm >90 (>60 ml/min/1.73 sqM) Est GFR (CKD-EPI)NonAf >90 (>60 ml/min/1.73 sqM) Glucose 88 (74-99) mg/dL Calcium 9.3 (8.4-10.2) mg/dL Total Bilirubin 1.9 H (0.2-1.3) mg/dL AST 30 (17-59) U/L ALT 40 (4-49) U/L Alkaline Phosphatase 80 (38-126) U/L Creatine Kinase (55-170) U/L Total Protein 7.7 (6.3-8.2) g/dL Albumin 4.5 (3.5-5.0) g/dL Urine Color Yellow Urine Appearance Turbid (Clear) Urine pH 7.5 (5.0-8.0) Ur Specific [place] 1.021 (1.001-1.035) Urine Protein Trace H (Negative) Urine Glucose (UA) Negative (Negative) Urine Ketones Negative (Negative) Urine Blood Negative (Negative) Urine Nitrite Negative (Negative) Urine Bilirubin Negative (Negative) Urine Urobilinogen 2.0 (<2.0) mg/dL Ur Leukocyte Esterase Negative (Negative) Urine RBC 1 (0-5) /hpf Amorphous Sediment Moderate H (None) /hpf Urine Mucus Occasional H (None) /hpf 06/27/22 Range/Units 21:55 WBC (3.8-10.6) k/uL RBC (4.30-5.90) m/uL Hgb (13.0-17.5) gm/dL Hct (39.0-53.0) % MCV (80.0-100.0) fL MCH (25.0-35.0) pg MCHC (31.0-37.0) g/dL RDW (11.5-15.5) % Plt Count (150-450) k/uL MPV Neutrophils % % Lymphocytes % % Monocytes % % Eosinophils % % Basophils % % Neutrophils # (1.3-7.7) k/uL Lymphocytes # (1.0-4.8) k/uL Monocytes # (0-1.0) k/uL Eosinophils # (0-0.7) k/uL Basophils # (0-0.2) k/uL Sodium (137-145) mmol/L Potassium (3.5-5.1) mmol/L Chloride (98-107) mmol/L Carbon Dioxide (22-30) mmol/L Anion Gap mmol/L BUN (9-20) mg/dL Creatinine (0.66-1.25) mg/dL Est GFR (CKD-EPI)AfAm (>60 ml/min/1.73 sqM) Est GFR (CKD-EPI)NonAf (>60 ml/min/1.73 sqM) Glucose (74-99) mg/dL Calcium (8.4-10.2) mg/dL Total Bilirubin (0.2-1.3) mg/dL AST (17-59) U/L ALT (4-49) U/L Alkaline Phosphatase (38-126) U/L Creatine Kinase 54 L (55-170) U/L Total Protein (6.3-8.2) g/dL Albumin (3.5-5.0) g/dL Urine Color Urine Appearance (Clear) Urine pH (5.0-8.0) Ur Specific [place] (1.001-1.035) Urine Protein (Negative) Urine Glucose (UA) (Negative) Urine Ketones (Negative) Urine Blood (Negative) Urine Nitrite (Negative) Urine Bilirubin (Negative) Urine Urobilinogen (<2.0) mg/dL Ur Leukocyte Esterase (Negative) Urine RBC (0-5) /hpf Amorphous Sediment (None) /hpf Urine Mucus (None) /hpf Disposition <Rivka Tristan - Last Filed: 06/27/22 18:49> Is patient prescribed a controlled substance at d/c from ED?: No Time of Disposition: 00:11 <Brandie Castrejon - Last Filed: 07/01/22 13:35> Clinical Impression: Cephalgia, Photophobia, Myalgia Disposition: HOME SELF-CARE Condition: Stable Instructions (If sedation given, give patient instructions): Migraine Headache (ED) Additional Instructions: Workup in the emergency department today has been normal however if your symptoms persist, you need to follow up with neurology and have further testing to include an MRI and possible lumbar puncture. Return for any worsening symptoms. Referrals: Gopal Bryant MD [Primary Care Provider] - 1-2 days Derek Brown MD [REFERRING] - 1-2 days Trisha Brown MD [REFERRING] - 1-2 days Jeff De La Torre DO [STAFF PHYSICIAN] - 1-2 days Maynor Wheeler MD [STAFF PHYSICIAN] - 1-2 days
[2022-06-27 19:50] VITALS: RESP 18; TEMP 98.2
[2022-06-27 20:49] LABS: Basophils % (A) 1 %; Eosinophils # (A) 0.2 k/uL (0-0.7); Eosinophils % (A) 2 %; HCT 49.4 % (39.0-53.0); HGB 16.6 gm/dL (13.0-17.5); Lymphocytes # (A) 2.6 k/uL (1.0-4.8); Lymphocytes % (A) 36 %; MCH 30.9 pg (25.0-35.0); MCHC 33.7 g/dL (31.0-37.0); MCV 91.9 fL (80.0-100.0); Mean Platelet Volume 8.8; Monocytes # (A) 0.5 k/uL (0-1.0); Monocytes % (A) 7 %; Neutrophils # (A) 3.8 k/uL (1.3-7.7); Neutrophils % (A) 53 %; Platelet Count 212 k/uL (150-450); RBC 5.38 m/uL (4.30-5.90); RDW 13.6 % (11.5-15.5); WBC 7.2 k/uL (3.8-10.6)
[2022-06-27 21:00] LABS: ALT 40 U/L (4-49); AST 30 U/L (17-59); African American GFR (CKD) >90 (>60 ml/min/1.73 sqM); Albumin 4.5 g/dL (3.5-5.0); Alkaline Phosphatase 80 U/L (38-126); Anion Gap 7 mmol/L; Blood Urea Nitrogen 11 mg/dL (9-20); Calcium 9.3 mg/dL (8.4-10.2); Carbon Dioxide 26 mmol/L (22-30); Chloride 107 mmol/L (98-107); Glucose 88 mg/dL (74-99); Non-African American GFR(CKD) >90 (>60 ml/min/1.73 sqM); Potassium 4.1 mmol/L (3.5-5.1); Sodium 140 mmol/L (137-145); Total Bilirubin 1.9 mg/dL (0.2-1.3); Total Protein 7.7 g/dL (6.3-8.2)
--- NOTE | 2022-06-27 21:09 | XR ---
EXAMINATION TYPE: XR chest 2V DATE OF EXAM: 06/27/2022 9:03 PM COMPARISON: Chest radiographs from 04/23/2018 TECHNIQUE: XR chest 2V Frontal and lateral views of the chest. CLINICAL INDICATION:Male, 37 years old with history of dizziness; FINDINGS: Lungs/Pleura: There is no evidence of pleural effusion, focal consolidation, or pneumothorax. Pulmonary vascularity: Unremarkable. Heart/mediastinum: Cardiomediastinal silhouette is unremarkable. Musculoskeletal: No acute osseous pathology. Other findings: Stimulator device leads project over the spine. IMPRESSION: No acute cardiopulmonary disease/process.
[2022-06-27 21:12] LABS: Amorphous Sediment,Urine Moderate /hpf; Appearance,Urine Turbid (Clear); Bilirubin,Urine Negative (Negative); Blood,Urine Negative (Negative); Color,Urine Yellow; Glucose,Urine (UA) Negative (Negative); Ketones,Urine Negative (Negative); Leukocyte Esterase,Urine Negative (Negative); Mucus,Urine Occasional /hpf; Nitrite,Urine Negative (Negative); PH, Urine 7.5 (5.0-8.0); Protein,Urine Trace (Negative); RBC,Urine 1 /hpf (0-5); Specific Gravity,Urine 1.021 (1.001-1.035)
[2022-06-27] MEDS ORDERED: DEXAMETHASONE SOD PHOSPHATE 10 MG/ML 1 ML VIAL IVP STA (21:42)
[2022-06-27] MEDS ORDERED: SODIUM CHLORIDE 0.9% 1,000 ML IV ONE (21:42)
[2022-06-27] MEDS ORDERED: METOCLOPRAMIDE 5 MG/ML 2 ML VIAL IVP STA (21:42)
[2022-06-27] MEDS ORDERED: MAGNESIUM SULFATE-D5W PMX 1 GM in DEXTROSE/WATER 1 100ML.BAG IVPB ONE (21:42)
[2022-06-27] MEDS ORDERED: diphenhydrAMINE 50 MG/ML 1 ML VIAL IVP STA (21:42)
--- NOTE | 2022-06-27 23:05 | CT ---
EXAMINATION TYPE: CT brain neal wo con DATE OF EXAM: 06/27/2022 COMPARISON: 01/27/2020 CT brain HISTORY: headache and speech deficit. CT DLP: 1538.9 mGycm Automated exposure control for dose reduction was used. Images of the brain and cervical spine obtained with no contrast. Ventricles have normal size. There is no mass effect or midline shift. No sign of intracranial hemorr barbara. Calvarium is intact. There is normal aeration of the mastoid sinuses. Skull base is intact. There is no evidence of focal bone destruction. The cervical vertebra have normal spacing and alignment. Posterior elements are intact. No compressio n fracture. Facet joints are intact. Prevertebral soft tissues are intact. There is mild posterior di sc bulging at C5-6. IMPRESSION: Negative CT scan of the brain. No change. Minor degenerative disc changes in the cervical spine. No fracture.
--- NOTE | 2022-06-27 23:18 | CT ---
EXAMINATION TYPE: CT angio head neck DATE OF EXAM: 06/27/2022 COMPARISON: HISTORY: headache and speech deficit CT DLP: 810 mGycm Automated exposure control for dose reduction was used. CONTRAST: Performed with IV Contrast, patient injected with 65 cc mL of Isovue 370. Images obtained from the aortic arch to the vertex of the brain with the IV contrast. There are Three -D postprocessed images. There is normal branching pattern of the great vessels on the aortic arch. There is bilateral arteria l flow in the subclavian arteries. There is arterial flow in the common internal and external carotid arteries bilaterally. There is wide patency of the carotid artery bifurcations. There is arterial fl ow in both vertebral arteries. No evidence of carotid or vertebral artery aneurysm or dissection. The re is arterial flow in the vertebral basilar artery system. There is arterial flow in the anterior middle and posterior cerebral arteries bilaterally. No mass ef fect. No evidence of intracranial aneurysm or neovascularity. No evidence of hemodynamic arterial rafael nosis. There is normal enhancement of the venous sinuses. IMPRESSION: Negative CT angiogram of the neck. Negative CT angiogram of the brain.
[2022-06-28] MEDS ORDERED: KETOROLAC 15 MG/ML 1 ML VIAL IVP STA (00:09)
[2022-06-28 00:41] VITALS: BP 117/82; PULSE 72
== END 2022-06-28 00:55 | disposition home or self-care (01) ==
LOC: EC 18:46
DX: R51.9 Headache, unspecified (principal); H53.143 Visual discomfort, bilateral; M79.10 Myalgia, unspecified site; Z88.0 Allergy status to penicillin; Z88.2 Allergy status to sulfonamides; R29.810 Facial weakness; Z79.01 Long term (current) use of anticoagulants
CPT/HCPCS: 99285 ×2; 96365 ×2; 96375 ×5; 36415; 93005; 80053; 82550; 85025; 81001; 71046; 72125; 70496; 70450; 70498; J1200; J1100; J2765; J3475; J1885; Q9967

== ENCOUNTER 2022-07-13 15:49 | Inpatient (IN) | payer BC, OTHER ==
--- NOTE | 2022-07-13 17:03 | ED ---
General Adult HPI - General Chief complaint: Headache Stated complaint: bad headache with joint pain Time Seen by Provider: 07/13/22 16:12 Source: patient, RN notes reviewed Mode of arrival: ambulatory Limitations: no limitations - History of Present Illness Initial comments: Patient is a pleasant 37-year-old male presenting to the emergency room with complaints of right arm pain and weakness along with progressive stutter and difficulty typing words all ongoing for approximately 48 hours. He also has been experiencing generalized headache with photophobia the symptoms have been ongoing for a few weeks. He has been evaluated here in the emergency room twice in the past few weeks for the headache and photophobia symptoms and over the past week has seen his neurologist and completed 3 MRIs. 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 His neurological symptoms recently has caused increased anxiety with occasional panic attacks. He reports having a panic attack yesterday. He denies any suicidal or homicidal thoughts. In addition to his anticoagulation disorder and secondary to that he has had pulmonary emboli IVC filter with multiple thromboses, headaches on Topamax, anxiety and depression. - Related Data Home Medications Medication Instructions Recorded Confirmed Rivaroxaban [Xarelto] 10 mg PO HS 10/26/20 07/13/22 Gabapentin 900 mg PO TID 07/21/21 07/13/22 Topiramate [Topamax] 50 mg PO BID 07/21/21 07/13/22 traMADol HCl [Ultram] 50 mg PO TID PRN 07/13/22 07/13/22 Allergies Allergy/AdvReac Type Severity Reaction Status Date / Time Penicillins Allergy Anaphylaxis Verified 07/13/22 17:32 Sulfa (Sulfonamide Allergy Itching Verified 07/13/22 17:32 Antibiotics) Review of Systems ROS Statement: Those systems with pertinent positive or pertinent negative responses have been documented in the HPI. ROS Other: All systems not noted in ROS Statement are negative. Past Medical History Past Medical History: Pulmonary Embolus (PE) Additional Past Medical History / Comment(s): 2011 BLOOD CLOT AFTER HEMORRHOID SX, negative hypercoagulability workup, seasonal ALLERGIES. History of Any Multi-Drug Resistant Organisms: None Reported Additional Past Surgical History / Comment(s): IVC filter Past Anesthesia/Blood Transfusion Reactions: Motion Sickness Past Psychological History: Anxiety, Depression Smoking Status: Former smoker Past Alcohol Use History: None Reported Past Drug Use History: None Reported - Past Family History Father History Unknown: Yes Mother Family Medical History: Cancer Additional Family Medical History / Comment(s): "LACK OF ABILTY TO CLOT" (NOT FACTOR V), SMOKER, ALCOHOLIC, ANX/DEPRESSION, GLAUCOMA, BREAST CA, General Exam - General Exam Comments Initial Comments: GENERAL: No acute distress, well developed, well nourished. HEENT: Normocephalic, atraumatic. Pupils equal, round, reactive to light. Moist mucous membranes. No facial droop. EOMI. LUNGS: No respiratory distress. Clear to auscultation, no adventitious sounds, no use of accessory muscles. HEART: Regular rate and rhythm without murmur, rub, or gallop. ABDOMEN: Normal bowel sounds. Soft, non-tender, non-distended. BACK: Normal inspection. EXTREMITIES: No edema. No tenderness. Right upper extremity drift. Gait steady. NEUROLOGIC: Alert & oriented x 3. CN II-XII grossly intact. Stutter with dysarthria. No overt aphasia PSYCHIATRIC: Normal affect and behavior. DERMATOLOGIC: Skin intact, without rashes or lesions noted. Limitations: no limitations Course Vital Signs 07/13/22 07/13/22 07/13/22 15:58 17:00 17:15 Temperature 98.7 F 98.7 F Pulse Rate 85 79 70 Respiratory 16 20 18 Rate Blood Pressure 139/91 128/90 126/83 O2 Sat by Pulse 99 96 96 Oximetry 07/13/22 07/13/22 17:35 18:43 Temperature Pulse Rate 82 83 Respiratory 18 18 Rate Blood Pressure 131/95 127/88 O2 Sat by Pulse 98 99 Oximetry Medical Decision Making - Medical Decision Making Was pt. sent in by a medical professional or institution (, PA, ELEVATOR MECHANIC APPRENTICE, urgent care, hospital, or skilled nursing...) When possible be specific @ -No Did you speak to anyone other than the patient for history (EMS, parent, family, police, friend...)? What history was obtained from this source @ -No Did you review nursing and triage notes (agree or disagree)? Why? @ -I reviewed and agree with nursing and triage notes Were old charts reviewed (outside hosp., previous admission, EMS record, old EKG, old radiological studies, urgent care reports/EKG's, skilled nursing records)? Report findings @ -Yes, I reviewed previous emergency room visits from earlier in the month of June 2022, EKG for [address] angiogram from 06/27/2022. Differential Diagnosis (chest pain, altered mental status, abdominal pain women, abdominal pain men, vaginal bleeding, weakness, fever, dyspnea, syncope, headache, dizziness, GI bleed, back pain, seizure, CVA, palpatations, mental health, musculoskeletal)? @ -Differential Headache: Migraine, tension, cluster, carbon monoxide, central venous thrombosis, pension karma temporal arteritis, acute closure glaucoma, intercranial hemorrhage, mastoiditis, sinusitis, head injury, this is not meant to be an all-inclusive list. EKG interpreted by me (3pts min.). @ -None done X-rays interpreted by me (1pt min.). @ -None done CT interpreted by me (1pt min.). @ -CT brain without contrast no area of ischemia, intracranial hemorrhage or mass effect or shift. CT angio head and neck no evidence of aneurysm or stenosis of the neck or brain. U/S interpreted by me (1pt. min.). @ -None done What testing was considered but not performed or refused? (CT, X-rays, U/S, labs)? Why? @ -None What meds were considered but not given or refused? Why? @ -Analgesics offered but deferred Did you discuss the management of the patient with other professionals (pro fessionals i.e. , PA, ELEVATOR MECHANIC APPRENTICE, lab, RT, psych nurse, drug abuse social worker, tanbark peeler, teacher, digital marketing officer, case finisher)? Give summary @ -Yes, spoke with Dr. Malone of for [facility] physicians regarding recommendation for observation admission for further evaluation and treatment for neurological symptoms. He is accepting of admission requesting prolactin level be added in addition to admission orders and neurology consult. Will place order. Was smoking cessation discussed for >3mins.? @ -No Was critical care preformed (if so, how long)? @ -No Were there social determinants of health that impacted care today? How? (Homelessness, low income, unemployed, alcoholism, drug addiction, transport ation, low edu. Level, literacy, decrease access to med. care, half-way, rehab)? @ -No Was there de-escalation of care discussed even if they declined (Discuss DNR or withdrawal of care, Hospice)? DNR status @ -No What co-morbidities impacted this encounter? (DM, HTN, Smoking, COPD, CAD, Cancer, CVA, ARF, Chemo, Hep., AIDS, mental health diagnosis, sleep apnea, morbid obesity)? @ -Anticoagulation disorder with missed anticoagulants Was patient admitted / discharged? Hospital course, mention meds given and route, prescriptions, significant lab abnormalities, going to OR and other pert inent info. @ -37-year-old male presenting to the emergency room with concern of progressive neurological symptoms over the last 48 hours including right arm pain and weakness, dysarthria and stutter. He has also had photophobia and headache ongoing for the last few weeks he has been following with his neurologist who completed serial MRIs but was advised to the progression of his symptoms to present to the emergency room for further evaluation. Due to duration of symptoms patient is not a TPA candidate and no cause stroke needs to be activated however will proceed with diagnostic imaging of CT head and neck angio along with CT the brain without contrast. Will obtain labs prior to the imaging. Analgesics offered and declined. Will plan for observation monitoring for progressive neurological symptoms pending computed tomography scan results. CT scans negative for acute process. CBC unremarkable, coags unremarkable CMP normal renal function bilirubin elevated 2.7 AST a LT and alkaline phosphate ulnar normal troponin negative CK elevated 173 glucose slightly elevated at 104 no electrolyte abnormalities. No indication for further diagnostic imaging or laboratory studies at this time will place on IV hydration and plan for observation admission with neurological consult for further evaluation and treatment. Spoke with Dr. Archibald monitoring manager for [facility] physicians regarding patient workup presentation and recommendations. He is accepting of admission and requ esting prolactin level be added to current laboratory studies. Will place admission orders along with prolactin order. Will admit patient in stable condition for further evaluation and treatment of p ossible CVA to observation unit under [facility] physicians. Undiagnosed new problem with uncertain prognosis? @ -No Drug Therapy requiring intensive monitoring for toxicity (Heparin, Nitro, Insulin, Cardizem)? @ -No Were any procedures done? @ -No Diagnosis/symptom? @ - Acute, or Chronic, or Acute on Chronic? @ -Acute Uncomplicated (without systemic symptoms) or Complicated (systemic symptoms)? @ -Complicated Side effects of treatment? @ -No Exacerbation, Progression, or Severe Exacerbation? @ -No Poses a threat to life or bodily function? How? (Chest pain, USA, ID, pneumonia, PE, COPD, DKA, ARF, appy, cholecystitis, CVA, Diverticulitis, Homicidal, Suicidal, threat to staff... and all critical care pts) @ -Yes concern for progressive stroke symptoms. - Lab Data Result diagrams: 07/13/22 16:50 07/13/22 16:50 Lab Results 07/13/22 07/13/22 07/13/22 Range/Units 16:50 16:50 16:50 WBC 6.0 (3.8-10.6) k/uL RBC 5.30 (4.30-5.90) m/uL Hgb 16.4 (13.0-17.5) gm/dL Hct 47.0 (39.0-53.0) % MCV 88.6 (80.0-100.0) fL MCH 31.0 (25.0-35.0) pg MCHC 35.0 (31.0-37.0) g/dL RDW 13.4 (11.5-15.5) % Plt Count 207 (150-450) k/uL MPV 8.7 Neutrophils % 51 % Lymphocytes % 37 % Monocytes % 7 % Eosinophils % 3 % Basophils % 0 % Neutrophils # 3.0 (1.3-7.7) k/uL Lymphocytes # 2.2 (1.0-4.8) k/uL Monocytes # 0.4 (0-1.0) k/uL Eosinophils # 0.2 (0-0.7) k/uL Basophils # 0.0 (0-0.2) k/uL PT 11.0 (9.0-12.0) sec INR 1.1 (<1.2) APTT 25.2 (22.0-30.0) sec Sodium 141 (137-145) mmol/L Potassium 3.8 (3.5-5.1) mmol/L Chloride 107 (98-107) mmol/L Carbon Dioxide 25 (22-30) mmol/L Anion Gap 9 mmol/L BUN 10 (9-20) mg/dL Creatinine 0.96 (0.66-1.25) mg/dL Est GFR (CKD-EPI)AfAm >90 (>60 ml/min/1.73 sqM) Est GFR (CKD-EPI)NonAf >90 (>60 ml/min/1.73 sqM) Glucose 104 H (74-99) mg/dL Calcium 8.9 (8.4-10.2) mg/dL Total Bilirubin 2.7 H (0.2-1.3) mg/dL AST 36 (17-59) U/L ALT 40 (4-49) U/L Alkaline Phosphatase 79 (38-126) U/L Creatine Kinase 173 H (55-170) U/L Troponin I (0.000-0.034) ng/mL Total Protein 7.4 (6.3-8.2) g/dL Albumin 4.3 (3.5-5.0) g/dL 07/13/22 Range/Units 16:50 WBC (3.8-10.6) k/uL RBC (4.30-5.90) m/uL Hgb (13.0-17.5) gm/dL Hct (39.0-53.0) % MCV (80.0-100.0) fL MCH (25.0-35.0) pg MCHC (31.0-37.0) g/dL RDW (11.5-15.5) % Plt Count (150-450) k/uL MPV Neutrophils % % Lymphocytes % % Monocytes % % Eosinophils % % Basophils % % Neutrophils # (1.3-7.7) k/uL Lymphocytes # (1.0-4.8) k/uL Monocytes # (0-1.0) k/uL Eosinophils # (0-0.7) k/uL Basophils # (0-0.2) k/uL PT (9.0-12.0) sec INR (<1.2) APTT (22.0-30.0) sec Sodium (137-145) mmol/L Potassium (3.5-5.1) mmol/L Chloride (98-107) mmol/L Carbon Dioxide (22-30) mmol/L Anion Gap mmol/L BUN (9-20) mg/dL Creatinine (0.66-1.25) mg/dL Est GFR (CKD-EPI)AfAm (>60 ml/min/1.73 sqM) Est GFR (CKD-EPI)NonAf (>60 ml/min/1.73 sqM) Glucose (74-99) mg/dL Calcium (8.4-10.2) mg/dL Total Bilirubin (0.2-1.3) mg/dL AST (17-59) U/L ALT (4-49) U/L Alkaline Phosphatase (38-126) U/L Creatine Kinase (55-170) U/L Troponin I <0.012 (0.000-0.034) ng/mL Total Protein (6.3-8.2) g/dL Albumin (3.5-5.0) g/dL Disposition Clinical Impression: CVA (cerebral vascular accident) Disposition: ADMITTED IP TO THIS HOSP Condition: Stable Time of Disposition: 18:05
[2022-07-13 17:17] LABS: Basophils % (A) 0 %; Eosinophils # (A) 0.2 k/uL (0-0.7); Eosinophils % (A) 3 %; HGB 16.4 gm/dL (13.0-17.5); Lymphocytes # (A) 2.2 k/uL (1.0-4.8); Lymphocytes % (A) 37 %; MCV 88.6 fL (80.0-100.0); Mean Platelet Volume 8.7; Monocytes # (A) 0.4 k/uL (0-1.0); Monocytes % (A) 7 %; Neutrophils % (A) 51 %; Platelet Count 207 k/uL (150-450); RDW 13.4 % (11.5-15.5)
[2022-07-13 17:30] LABS: INR 1.1 (<1.2); Partial Thromboplastin Time 25.2 sec (22.0-30.0)
[2022-07-13 17:31] LABS: ALT 40 U/L (4-49); AST 36 U/L (17-59); African American GFR (CKD) >90 (>60 ml/min/1.73 sqM); Albumin 4.3 g/dL (3.5-5.0); Alkaline Phosphatase 79 U/L (38-126); Anion Gap 9 mmol/L; Blood Urea Nitrogen 10 mg/dL (9-20); Calcium 8.9 mg/dL (8.4-10.2); Carbon Dioxide 25 mmol/L (22-30); Chloride 107 mmol/L (98-107); Creatine Kinase 173 U/L (55-170); Glucose 104 mg/dL (74-99); Non-African American GFR(CKD) >90 (>60 ml/min/1.73 sqM); Potassium 3.8 mmol/L (3.5-5.1); Sodium 141 mmol/L (137-145); Total Bilirubin 2.7 mg/dL (0.2-1.3); Total Protein 7.4 g/dL (6.3-8.2)
--- NOTE | 2022-07-13 17:46 | CT ---
EXAMINATION TYPE: CT brain wo con DATE OF EXAM: 07/13/2022 COMPARISON: 01/27/2020 HISTORY: headache, slurred speech CT DLP: 1141.4 mGycm Automated exposure control for dose reduction was used. Ventricles have normal size. There is no mass effect or midline shift. No sign of intracranial hemorr barbara. The calvarium is intact. There is normal aeration of the mastoid sinuses. IMPRESSION: Negative CT scan of the brain. No change.
--- NOTE | 2022-07-13 17:58 | CT ---
EXAMINATION TYPE: CT angio head neck DATE OF EXAM: 07/13/2022 COMPARISON: 06/27/2022 HISTORY: headache, slurred speech CT DLP: 679 mGycm Automated exposure control for dose reduction was used. CONTRAST: Performed with IV Contrast, patient injected with 65cc mL of Isovue 370. Images obtained from the aortic arch to the vertex of the brain with IV contrast. There are Three-D postprocessed images. There is normal branching pattern of the great vessels on the aortic arch. There is arterial flow in both subclavian arteries. There is arterial flow in the common internal and external carotid arteries bilaterally. There is wid e patency of the carotid artery bifurcations. There is arterial flow in both vertebral arteries. Ther e is arterial flow in the vertebral basilar artery system. No evidence of carotid or vertebral artery aneurysm or dissection. There is arterial flow in the anterior middle and posterior cerebral arteries bilaterally. No mass ef fect. No evidence of intracranial aneurysm or neovascularity. No evidence of hemodynamic arterial rafael nosis. There is normal enhancement of the venous sinuses. IMPRESSION: Negative CT angiogram of the neck. Negative CT angiogram of the brain.
[2022-07-13] MEDS ORDERED: SODIUM CHLORIDE 0.9% 1,000 ML IV STA (18:10)
[2022-07-13] MEDS ORDERED: NALOXONE 0.4 MG/ML 1 ML VIAL IV PRN (18:23)
[2022-07-13] MEDS ORDERED: ACETAMINOPHEN TAB 325 MG TAB PO PRN (18:31)
[2022-07-13] MEDS ORDERED: traMADol 50 MG TAB PO PRN (18:31)
[2022-07-13] MEDS: SODIUM CHLORIDE 0.9% 1,000 ML IV SCH (18:45)
[2022-07-13] MEDS: TOPIRAMATE 25 MG TAB PO SCH (21:11)
[2022-07-13] MEDS: GABAPENTIN 300 MG CAP PO SCH (21:11)
[2022-07-13] MEDS: RIVAROXABAN 10 MG TAB PO SCH (21:11)
--- NOTE | 2022-07-14 03:45 | P.HPIM ---
History of Present Illness H&P Date: 07/13/22 Chief Complaint: neuro symptoms 37 year old male with coagulopathy with multiple PE, DVT, on xarelto patient coming in with 48 hours history of stuttering and right upper extremity weakness and difficulty writing and typing. also reports headache and photophobia for the past couple weeks , for which he visited the ED multiple time, he visited neurology as outpatient and had multiple MRI with no abnormalities patient recalls that all started after having trouble refilling his xarelto and running out for about 2 weeks . resulted in increase anxiety and panic attacks episodes patient has spinal cord stimulator for chronic lower extremity pain since a crushing injury to his lower extremity in the past he denies fever, chills, vision changes (however does reports seeing bright stars at times ) denies chest pain trouble breathing, fever chills URI symptoms , abd pain , changes in bowel or urinary habits denies any falls or head injury he admits to life stressors , depression and anxiety , but denies any suicidal ideation denies tobacco smoking , illicit drugs or alcohol Review of Systems Pertinent positives as noted in HPI. All other systems were reviewed and are negative Past Medical History Past Medical History: Pulmonary Embolus (PE) Additional Past Medical History / Comment(s): 2011 BLOOD CLOT AFTER HEMORRHOID SX, negative hypercoagulability workup, seasonal ALLERGIES. History of Any Multi-Drug Resistant Organisms: None Reported Additional Past Surgical History / Comment(s): IVC filter Past Anesthesia/Blood Transfusion Reactions: Motion Sickness Past Psychological History: Anxiety, Depression Smoking Status: Former smoker Past Alcohol Use History: None Reported Past Drug Use History: None Reported - Past Family History Father History Unknown: Yes Mother Family Medical History: Cancer Additional Family Medical History / Comment(s): "LACK OF ABILTY TO CLOT" (NOT FACTOR V), SMOKER, ALCOHOLIC, ANX/DEPRESSION, GLAUCOMA, BREAST CA, Medications and Allergies Home Medications Medication Instructions Recorded Confirmed Type Rivaroxaban [Xarelto] 10 mg PO HS 10/26/20 07/13/22 History Gabapentin 900 mg PO TID 07/21/21 07/13/22 History Topiramate [Topamax] 50 mg PO BID 07/21/21 07/13/22 History traMADol HCl [Ultram] 50 mg PO TID PRN 07/13/22 07/13/22 History Allergies Allergy/AdvReac Type Severity Reaction Status Date / Time Penicillins Allergy Anaphylaxis Verified 07/13/22 17:32 Sulfa (Sulfonamide Allergy Itching Verified 07/13/22 17:32 Antibiotics) Physical Exam Vitals: Vital Signs Temp Pulse Pulse Resp BP BP Pulse Ox 07/13/22 19:55 98.1 F 64 18 128/80 100 07/13/22 19:40 75 18 135/81 98 07/13/22 18:43 83 18 127/88 99 07/13/22 17:35 82 18 131/95 98 07/13/22 17:15 98.7 F 70 18 126/83 96 07/13/22 17:00 79 20 128/90 96 07/13/22 15:58 98.7 F 85 16 139/91 99 Intake and Output 07/13/22 07/13/22 07/13/22 06:59 14:59 22:59 Other: Weight 102.058 kg Constitutional: No acute distress, conversant, pleasant, patient is stuttering off and on , he also noted to be using his right upper extremity freely when speaking during the interview, but then during the exam , it felt l ramone he is having poor effort during the right upper extremity exam , the interview was done in dim light per patient request due to photophobia Eyes: Anicteric sclerae, moist conjunctiva, Pupils equal round reactive to light ENMT: NC/AT Oropharynx clear, no erythema, or exudates Neck: Supple, no masses, or JVD No carotid bruits No thyromegaly Lungs: Clear to auscultation Clear to percussion Normal respiratory effort, no accessory muscle use Cardiovascular: Heart regular in rate and rhythm, No murmurs, gallops, or rubs No peripheral edema Abdominal: Soft Nontender, no guarding, rebound or rigidity Abdomen moving with respiration Normoactive bowel sounds No hepatomegaly, No splenomegaly No palpable mass No abdominal wall hernia noted Skin: Normal temperature, tone, texture, turgor No induration No subcutaneous nodules No rash, lesions No ulcers Extremities: No digital cyanosis No clubbing Pedal pulses intact and symmetrical Radial pulses intact and symmetrical No calf tenderness Psychiatric: Alert and oriented to person, place and time Appropriate affect fair judgment Neuro Muscles Strength 5/5 in bilateral lower and left upper extremity , right upper extremity was inconsistent and ranging 3-4 /5 Sensation to light touch grossly present throughout Cranial nerves II-XII grossly intact Lymphatics: no palpable cervical or supraclavicular lymph nodes Results CBC & Chem 7: 07/13/22 16:50 07/13/22 16:50 Labs: Abnormal Lab Results - Last 24 Hours (Table) 07/13/22 Range/Units 16:50 Glucose 104 H (74-99) mg/dL Total Bilirubin 2.7 H (0.2-1.3) mg/dL Creatine Kinase 173 H (55-170) U/L Assessment and Plan Assessment: 37 year old male with coagulopathy , with multiple venous thromboembolism in the past s/p IVC filter and on xarelto . patient was off xarelto for 2 weeks due to difficulty getting a refill after which started experiencing headache and photophobia, now presenting with 48 hours of stuttering and difficulty typing . patient had multiple visits to the ED and neurology over past couple weeks , with multiple MRI done to the brain that failed to show any pathology . I discussed the case with ED doc, and I accepted the admission for further neuro workup and psych eval stuttering and right upper extremity weakness CT brain wout contrast negative CT angio head and neck negative check echo neuro checks PT eval neuro eval psych eval , patient has some inconsistencies in physical exam and during the interview, admits to overwhelming life stressors and depression , denies suicidal ideation fall precautions blood work showing Hgb 16.4 unremarkable , WBC 6, BUN 10 cr 0.98 unremarkable coagulopathy with venous thromboembolism resume xarelto 10 mg po qhs s/p IVC filter full code DVT PPX on xarelto
[2022-07-14] MEDS: GABAPENTIN 300 MG CAP PO SCH ×3 (08:37→21:07)
[2022-07-14] MEDS: TOPIRAMATE 25 MG TAB PO SCH ×2 (08:37→21:06)
[2022-07-14] MEDS: SODIUM CHLORIDE 0.9% 1,000 ML IV SCH (08:38)
--- NOTE | 2022-07-14 11:30 | P.PN ---
Subjective Progress Note Date: 07/14/22 Hospital Course: 37-year-old male with history of coagulopathy with multiple PE, DVT, on that alto, history of migraine, presenting with 2 days of vague neurological symptoms including aphasia, stuttering, right upper extremity weakness and pain, difficulty writing and typing. In the ED, his vital signs were within normal limits. Laboratory workup was unremarkable except for elevated CK at 173, and hyperbilirubinemia at 2.7. CT brain and CTA head and neck not show any acute process. Patient was admitted for further neurological workup, and auscultation. Subjective: Patient seen and examined at bedside. No acute events overnight. He continues to have difficulty speaking, but denies any chest pain, shortness of breath, nausea, vomiting, diarrhea, constipation, abdominal pain, or urinary complaints. Pertinent positives and negatives as discussed above, a complete review of systems was performed and all other systems are negative. Vitals Signs Reviewed. General: nontoxic, no distress, appears at stated age Derm: warm, dry Head: atraumatic, normocephalic, symmetric Eyes: EOMI, no lid lag, anicteric sclera Mouth: no lip lesion, mucus membranes moist Cardiovascular: S1S2 reg, no murmur Lungs: CTA bilateral, no rhonchi, no rales , no accessory muscle use Abdominal: soft, nontender to palpation, no guarding, no appreciable organomegaly Ext: no gross muscle atrophy, no edema, no contractures Neuro: CN II-XI grossly intact, no focal neuro deficits, has expressive aphasia Psych: Alert, oriented, appropriate affect Data Reviewed Today: Pertinent Labs: A1c 5.1 Assessment and Plan: Active: Stuttering and right upper extremity weakness Nonfocal neurological complaints -Neurology and psychiatry has been consulted -He has had multiple MRIs done in the outpatient setting, which showed no pathology, imaging in the ED did not show any acute process -His neurological complaints may be related to psychiatric problems -He is currently on gabapentin 900 mg 3 times a day, may consider reducing -neuro checks Chronic: Coagulopathy with history of PE and DVT Migraine DVT ppx: xarelto Code status: Full Code Anticipated discharge place: Pending clinical course Anticipated discharge time: Pending clinical course Objective - Vital Signs Vital signs: Vital Signs Temp 98.2 F 07/14/22 11:28 Pulse 67 07/14/22 11:28 Resp 16 07/14/22 11:28 BP 123/84 07/14/22 11:28 Pulse Ox 98 07/14/22 11:28 FiO2 Intake & Output 07/13/22 07/14/22 07/14/22 18:59 06:59 18:59 Intake Total 123 Balance 123 Weight 102.058 kg 102.058 kg Intake: IV 5 Invasive Line 1 5 Oral 118 Other: # Voids 1 2 # Bowel Movements 2 - Labs CBC & Chem 7: 07/13/22 16:50 07/13/22 16:50 Labs: Abnormal Lab Results - Last 24 Hours (Table) 07/13/22 Range/Units 16:50 Glucose 104 H (74-99) mg/dL Total Bilirubin 2.7 H (0.2-1.3) mg/dL Creatine Kinase 173 H (55-170) U/L
--- NOTE | 2022-07-14 13:12 | P.CNNES ---
History of Present Illness Consult date: 07/14/22 Requesting physician: Judith Hua Reason for Consult: CVA History of Present Illness: Patient is a 37-year-old male who came to the hospital yesterday at 3:49 PM for multiple neurological symptoms. Patient has history of migraine headaches, chronic back pain for which he follows up with Dr. Cabrera. Patient currently on Topamax, gabapentin and tramadol. Patient states that on on 06/25/2022 he had some issues with reading GPS. He turned around not followed the directions as per GPS. It happened 2 times that day that he missed the directions. But he brushed it off. He did have a mild headache, but nothing unusual. However on 06/26/2021 he got a bad headache, frontal like a migraine. His speech became slow he has been taking tramadol for migraine as needed. He was taking it around the clock 3 times a day. He went to ER on 06/27/[address] head, CTA of head and neck, which were normal. He was given some migraine cocktail including magnesium, which almost resolved the headache and his speech slightly improved but was not gone. He was given 2 days off work. Subsequently he started noticing stuttering since 07/02/2022. This was noticed by his and coworkers. He noticed his speech was slow, worse were difficult to come out. He started seeing his neurologist the following week and underwent MRI of the brain. He had a VAT scan performed yesterday. He stuttering, having difficulty thoughts to put to speech. Patient states that 3 days ago he was sleeping, and his right arm was hurting. Right arm felt numb and he couldn't lift or pull. He had a constant pain in the right biceps muscle. 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 He felt his face was melting, drooping, and arms and legs felt there were weights on. He was noticing tingling in both feet. He feels ve ry tired, fatigued, headache and is taking tramadol 3 times a day. He also has developed anxiety. Patient claims he has Neuro stim for chronic back pain. Vital signs on arrival blood pressure 139/91 pulse rate 85 temperature 98.7. Blood test shows normal CBC, PT/PTT, Chem-7, hepatic panel, troponin is negative. CK is mildly elevated 173. Prolactin is normal 12.4. Hemoglobin A1c 5.1. CT head reported as "negative". CTA of head and neck also reported as negative. Home medications include Xarelto 10 mg, Topamax 50 mg twice a day, gabapentin 900 mg 3 times a day and tramadol 50 mg 3 times a day. He has been on all these medications for the last 2 years. Patient denies any tobacco or alcohol use, denies any hypertension or diabetes. He is on Xarelto because he had history of 5 PEs in 3 months from December to February 2012. Review of Systems Constitutional: Denies chills, Denies fever Eyes: bilateral blurred vision (Sarbursts) Ears, nose, mouth and throat: Reports headache, Denies sore throat Cardiovascular: Reports chest pain, Denies shortness of breath Respiratory: Denies cough, Denies excessive sputum Gastrointestinal: Reports nausea, Denies abdominal pain, Denies diarrhea, Denies vomiting Genitourinary: Denies incontinence, Denies urinary frequency Musculoskeletal: Reports low back pain, Reports myalgias, Reports neck pain Integumentary: Denies pruritus, Denies rash Neurological: Reports as per HPI Psychiatric: Reports anxiety, Reports depression Endocrine: Reports fatigue, Denies weight change Past Medical History Past Medical History: Pulmonary Embolus (PE) Additional Past Medical History / Comment(s): 2011 BLOOD CLOT AFTER HEMORRHOID SX, negative hypercoagulability workup, seasonal ALLERGIES. History of Any Multi-Drug Resistant Organisms: None Reported Additional Past Surgical History / Comment(s): IVC filter Past Anesthesia/Blood Transfusion Reactions: Motion Sickness Past Psychological History: Anxiety, Depression Smoking Status: Former smoker Past Alcohol Use History: None Reported Past Drug Use History: None Reported - Past Family History Father History Unknown: Yes Mother Family Medical History: Cancer Additional Family Medical History / Comment(s): "LACK OF ABILTY TO CLOT" (NOT FACTOR V), SMOKER, ALCOHOLIC, ANX/DEPRESSION, GLAUCOMA, BREAST CA, Medications and Allergies Home Medications Medication Instructions Recorded Confirmed Type Rivaroxaban [Xarelto] 10 mg PO HS 10/26/20 07/13/22 History Gabapentin 900 mg PO TID 07/21/21 07/13/22 History Topiramate [Topamax] 50 mg PO BID 07/21/21 07/13/22 History traMADol HCl [Ultram] 50 mg PO TID PRN 07/13/22 07/13/22 History Allergies Allergy/AdvReac Type Severity Reaction Status Date / Time Penicillins Allergy Anaphylaxis Verified 07/13/22 17:32 Sulfa (Sulfonamide Allergy Itching Verified 07/13/22 17:32 Antibiotics) Physical Examination - Vital Signs Vital Signs: Vital Signs Temp Pulse Pulse Resp BP BP Pulse Ox 07/14/22 09:57 99 07/14/22 08:39 97.6 F 78 16 122/77 97 07/14/22 03:05 92 18 119/74 94 L 07/13/22 23:20 75 17 136/87 99 07/13/22 19:55 98.1 F 64 18 128/80 100 07/13/22 19:40 75 18 135/81 98 07/13/22 18:43 83 18 127/88 99 07/13/22 17:35 82 18 131/95 98 07/13/22 17:15 98.7 F 70 18 126/83 96 07/13/22 17:00 79 20 128/90 96 07/13/22 15:58 98.7 F 85 16 139/91 99 Intake and Output 07/13/22 07/14/22 07/14/22 22:59 06:59 14:59 Intake Total 123 Balance 123 Intake: IV 5 Invasive Line 1 5 Oral 118 Other: # Voids 1 Weight 102.058 kg Patient is a young male, in no acute distress. Patient has decreased frequency of eye contact. Patient is alert awake oriented to time place and person. Speech and language functions are normal. Patient can name and repeat very well. No aphasia or dysarthria. He has mild stuttering, sometimes pauses between speech. Attention, concentration and fund of knowledge is adequate. On cranial nerve examination, pupils are equal, round and reacting to light, visual mijares are full on confrontation, with no neglect on double simultaneous stimulation. Extraocular muscles are intact with no nystagmus. Face is symmetric, tongue protrudes to the midline. Palatal elevation and sensation normal, hearing and shoulder shrug normal, facial sensation normal. On muscle strength testing, there is no pronator drift and the strength is normal in arms and legs distally and proximally, except for decreased effort in the right upper limb. 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 Deep tendon reflexes are symmetric 1 at the biceps, 2 brachioradialis, 2 at the knees, 2 ankles and plantars downgoing bilaterally. Sensory to touch is equal with no neglect on double simultaneous stimulation. Cerebellar function showed no ataxia for extenr-nt-grqq testing. No dysdiadochokinesia. No ataxia for azih-wv-tctb testing on either side. Tone and bulk of muscles normal. Gait deferred.. On general examination, there is no carotid bruit or murmur, S1-S2 audible. Chest is clear on consultation. Abdomen is soft nontender. No organomegaly, bowel sounds present. Peripheral pulses are present. No edema. Results - Laboratory Findings CBC and BMP: 07/13/22 16:50 07/13/22 16:50 Abnormal Lab Findings: Abnormal Labs 07/13/22 16:50 Glucose 104 H Total Bilirubin 2.7 H Creatine Kinase 173 H Assessment and Plan Assessment: * Speech difficulty, with mild stuttering, slow halted speech, unclear etiology, rule out psychogenic causes, rule out medication side effect. * Right arm subjective weakness, unclear etiology. Patient has give way weakness. * Migraine headaches * History of PE on Xarelto * Chronic back pain, status post placement of Neurostim. * Anxiety disorder Plan: * Patient recently had MRI of the brain performed at his neurology office. We will try to obtain those results to look for any demyelinating disease. * Patient had a normal CTA of head and neck. * No other neurological workup indicated. * Sometimes Topamax can produce speech side effects. He has been on it for last 2 years, but I think it is worth trying stopping this medication. He may be a candidate for Emgality or Aimovig for migraines. Also suggested may consider decreasing dose of gabapentin. He was recommended to follow up with his neurologist to continue testing as planned. Patient was scheduled for EEG today at his neurology office, but can be rescheduled for next week. * Continue Xarelto. * Psychiatry also on board. Will review. * Neurologically clear otherwise. Thank you for the consult.
--- NOTE | 2022-07-14 13:52 | P.CN ---
Psychiatric Consult - . Consult date: 07/14/22 Consult:: 07/14/22 13:51 IDENTIFYING DATA: This patient is a , employed, 37-year-old male with significant history of pulmonary embolism, DVT, on xarelto, presents to the hospital with complaints of headache, photophobia, stuttering, and right upper extremity weakness. HISTORY OF PRESENT ILLNESS: The patient presented to the hospital on 07/13/2022 with concerns for neurological changes in the past 48 hours prior to his presentation in the ED. The patient reported he was experiencing right upper extremity weakness, difficulty with fine motor skills, and stuttering. Furthrmore the patient reported that he has been experiencing photophobia and headache for the past couple of weeks. He was admitted for neurological and psychiatric work up for his symptoms. The patient reports he first noticed worsening of his neurological symptoms by noticing he hd difficulty following GPS instructions. He noticed from there his neurological symptoms began to gradually worsen. CT of the head and neck were performed in ED and were negative. He also was administered medications for migraine which alleviated his headache but he continued to experience speech difficulty. He also continues to report issues regarding right upper extremity weakness. Upon evaluation by this provider, the patient does not endorse any significant symptoms of depression. He denies any hopelessness, helplessness, changes in appetite, changes in hygiene and grooming, or any suicidal or homicidal ideation, intention, and/or plan. He reports no auditory or visual hallucinations. He denies any paranoia or other delusions. The patient does endorse significant anxiety. He states he has a history of panic attacks. He also reports he has had to endure significant hardship when growing up. He states he never knew his father, and his mother who "raised" him was an alcoholic. He states he had to be the one to take care of the family including his twin sister and younger sister. In regards to current stressors, he states he has financial stressors as he is the sole provider for his family. He reports his work is high profile with often demanding clients. He does not report any other stressors at this time. PAST PSYCHIATRIC HISTORY: Patient has a history of depression and anxiety. Patient denies being on any psychiatric medications. He is currently prescribed topiramate and gabapentin for migraines and neuropathy respectively. Patient denies any previous psychiatric hospitalizations. Patient reports he follows with a therapist through [facility]. Patient denies any history of suicide attempts in the past. PAST MEDICAL HISTORY: Past Medical History: Pulmonary Embolus (PE) Additional Past Medical History / Comment(s): 2011 BLOOD CLOT AFTER HEMORRHOID SX, negative hypercoagulability workup, seasonal ALLERGIES. History of Any Multi-Drug Resistant Organisms: None Reported Additional Past Surgical History / Comment(s): IVC filter Past Anesthesia/Blood Transfusion Reactions: Motion Sickness Past Psychological History: Anxiety, Depression Smoking Status: Former smoker Past Alcohol Use History: None Reported Past Drug Use History: None Reported ALLERGIES: NKDA CHEMICAL DEPENDENCY HISTORY: Patient denies any alcohol, marijuana, tobacco, or illicit drug use. FAMILY PSYCHIATRIC/SUBSTANCE USE HISTORY: Patient reports his mother was alcoholic, bipolar, and attempted suicide multiple times. SOCIAL HISTORY: Patient was born and raised in [place]. He is to his Iris for the past 2 years and they have 2 children ages 5 and 2 years old together.He is currently employed for "[employer]" and works from home. He reports he is the only income provider in the home and financial stressors are present. Patient was in the [employer] however due to his PEs was medically discharged. MENTAL STATUS EXAM: General Appearance: Patient appears to be stated age is alert, pleasant, and cooperative. Patient appears to have fair hygiene and grooming wearing hospital gown with fair eye contact. Behavior: Patient is calmly seated upright in bed without any agitated behavior. Speech: Patient's speech is fluent and nonpressured. Mood/Affect: Patient reports their mood is "I'm doing okay", affect is constricted. Suicidality/Homicidality: Patient denies having any suicidal or homicidal ideation, intention, and/or plan. Perceptions: Patient denies any visual hallucinations and denies any auditory hallucinations Though content/process: There is no evidence of any delusional thought content and thought process is linear and goal-directed. Memory and concentration: AOX3, grossly intact for the purposes of this session. Can spell "WORLD" backwards Judgment and insight: Fair Vital Signs Temp 98.2 F 07/14/22 11:28 Pulse 67 07/14/22 11:28 Resp 16 07/14/22 11:28 BP 123/84 07/14/22 11:28 Pulse Ox 98 07/14/22 11:28 FiO2 Intake & Output 07/13/22 07/14/22 07/14/22 18:59 06:59 18:59 Intake Total 123 Balance 123 Weight 102.058 kg 102.058 kg Intake: IV 5 Invasive Line 1 5 Oral 118 Other: # Voids 1 2 # Bowel Movements 2 Laboratory Results WBC 6.0 k/uL (3.8-10.6) 07/13/22 16:50 RBC 5.30 m/uL (4.30-5.90) 07/13/22 16:50 Hgb 16.4 gm/dL (13.0-17.5) 07/13/22 16:50 Hct 47.0 % (39.0-53.0) 07/13/22 16:50 MCV 88.6 fL (80.0-100.0) 07/13/22 16:50 MCH 31.0 pg (25.0-35.0) 07/13/22 16:50 MCHC 35.0 g/dL (31.0-37.0) 07/13/22 16:50 RDW 13.4 % (11.5-15.5) 07/13/22 16:50 Plt Count 207 k/uL (150-450) 07/13/22 16:50 MPV 8.7 07/13/22 16:50 Neutrophils % 51 % 07/13/22 16:50 Lymphocytes % 37 % 07/13/22 16:50 Monocytes % 7 % 07/13/22 16:50 Eosinophils % 3 % 07/13/22 16:50 Basophils % 0 % 07/13/22 16:50 Neutrophils # 3.0 k/uL (1.3-7.7) 07/13/22 16:50 Lymphocytes # 2.2 k/uL (1.0-4.8) 07/13/22 16:50 Monocytes # 0.4 k/uL (0-1.0) 07/13/22 16:50 Eosinophils # 0.2 k/uL (0-0.7) 07/13/22 16:50 Basophils # 0.0 k/uL (0-0.2) 07/13/22 16:50 PT 11.0 sec (9.0-12.0) 07/13/22 16:50 INR 1.1 (<1.2) 07/13/22 16:50 APTT 25.2 sec (22.0-30.0) 07/13/22 16:50 Sodium 141 mmol/L (137-145) 07/13/22 16:50 Potassium 3.8 mmol/L (3.5-5.1) 07/13/22 16:50 Chloride 107 mmol/L (98-107) 07/13/22 16:50 Carbon Dioxide 25 mmol/L (22-30) 07/13/22 16:50 Anion Gap 9 mmol/L 07/13/22 16:50 BUN 10 mg/dL (9-20) 07/13/22 16:50 Creatinine 0.96 mg/dL (0.66-1.25) 07/13/22 16:50 Est GFR (CKD-EPI)AfAm >90 (>60 ml/min/1.73 sqM) 07/13/22 16:50 Est GFR (CKD-EPI)NonAf >90 (>60 ml/min/1.73 sqM) 07/13/22 16:50 Glucose 104 mg/dL (74-99) H 07/13/22 16:[address] Glu mg/dL 100 07/14/22 07:09 Hemoglobin A1c 5.1 % (0.0-6.0) 07/14/22 07:09 Calcium 8.9 mg/dL (8.4-10.2) 07/13/22 16:50 Total Bilirubin 2.7 mg/dL (0.2-1.3) H 07/13/22 16:50 AST 36 U/L (17-59) 07/13/22 16:50 ALT 40 U/L (4-49) 07/13/22 16:50 Alkaline Phosphatase 79 U/L (38-126) 07/13/22 16:50 Creatine Kinase 173 U/L (55-170) H 07/13/22 16:50 Troponin I <0.012 ng/mL (0.000-0.034) 07/13/22 16:50 Total Protein 7.4 g/dL (6.3-8.2) 07/13/22 16:50 Albumin 4.3 g/dL (3.5-5.0) 07/13/22 16:50 Prolactin 12.400 ng/mL (2.100-17.700) 07/13/22 16:50 IMPRESSIONS: Stuttering and Right Upper Extremity Weakness - psychogenic vs medication side effect Rule out Conversion Disorder (with speech symptom, weakness, abnormal movement). Migraine Anxiety Chronic back pain with neurostimulator PLAN: -At this time patient DOES NOT meet criteria for inpatient psychiatric admission. The patient is not presenting with imminent risk of harm to self or others. He is not overtly manic or psychotic. -Neurology following. MRI results from outpatient provider was requested. -TSH, B12, folate ordered -Speech Therapy/Pathology consulted - as per report, " pt exhibited fluent answers on majority of trials. Pt stated he "does better when reading a script". DDK was WNL. These characteristics are not consistent with a true fluency disorder, as seen in PWS. This may be more behavioral related (psych has been consulted) vs neurological-based speech disorder. It was recommended that upon DC, if pt is still experiencing fluency impairments, that he contact the speech pathology department for consideration of outpatient services." -Would recommend the following medication changes/additions: No medication recommendations at this time. Will defer to neurology regarding topamax for migraine management. -Psychoeducation (first line treatment for conversion disorder) and supportive psychotherapy (second line treatment for conversion disorder) regarding possible Conversion Disorder was discussed at length with the patient. Discussed treatment would involve continued outpatient psychotherapy regarding stressors and reassurance with frequent follow up and minimizing of invasive procedures. Patient only identifies financial and work related stressors to this provider. -Recommend outpatient psychotherapy follow-up. -Psychiatry will sign off at this point, please contact with any questions. 07/14/22 13:51
[2022-07-14] MEDS ORDERED: SENNOSIDES 8.6 MG TAB PO PRN (13:54)
[2022-07-14] MEDS: RIVAROXABAN 10 MG TAB PO SCH (21:06)
[2022-07-15 04:17] VITALS: TEMP 97.9
[2022-07-15] MEDS: GABAPENTIN 300 MG CAP PO SCH (09:32)
[2022-07-15] MEDS: TOPIRAMATE 25 MG TAB PO SCH (09:32)
[2022-07-15 09:37] VITALS: BP 121/79; PULSE 88; RESP 14
--- NOTE | 2022-07-15 11:08 | P.DS ---
Providers Date of admission: 07/13/22 18:05 Expected date of discharge: 07/15/22 Attending physician: Jose Malone MD Consults: 07/13/22 18:23 Consult Physician Routine Consulting Provider: Caridad Bauer Consult Reason/Comments: CVA Do you want consulting provider notified?: Yes 07/14/22 03:42 Consult Physician Routine Consulting Provider: Psychiatry - [facility] Psychiatry Consult Reason/Comments: inconsistencies on PE and during the interview, depression anxiety Do you want consulting provider notified?: Already Contacted Primary care physician: Gopal Bryant MD Hospital Course: Discharge Diagnosis: Stuttering and right upper extremity weakness Nonfocal neurological complaints Coagulopathy with history of PE and DVT Migraine Constipation Hospital Course: 37-year-old male with history of coagulopathy with multiple PE, DVT, on that alto, history of migraine, presenting with 2 days of vague neurological symptoms including aphasia, stuttering, right upper extremity weakness and pain, difficulty writing and typing. In the ED, his vital signs were within normal limits. Laboratory workup was unremarkable except for elevated CK at 173, and hyperbilirubinemia at 2.7. CT brain and CTA head and neck did not show any acute process. Patient was admitted for further neurological workup. Per neurology, no further neurological workup needed while inpatient. He will need to follow up with his outpatient neurologist. Patient had already gotten MRIs in the outpatient setting. Neurology also recommended possibly switching his migraine medication to something else. Also recommended reducing the dose of gabapentin and outpatient setting. Psychiatry was consulted. Patient may benefit from psychotherapy for possible conversion disorder. He needs follow-up with his therapist. Patient seen and examined at bedside. Vital signs reviewed and stable. General: nontoxic, no distress, appears at stated age Derm: warm, dry Head: atraumatic, normocephalic, symmetric Eyes: EOMI, no lid lag, anicteric sclera Mouth: no lip lesion, mucus membranes moist Cardiovascular: S1S2 reg, no murmur Lungs: CTA bilateral, no rhonchi, no rales , no accessory muscle use Abdominal: soft, nontender to palpation, no guarding, no appreciable organomegaly Ext: no gross muscle atrophy, no edema, no contractures Neuro: CN II-XI grossly intact, no focal neuro deficits, has expressive aphasia Psych: Alert, oriented, appropriate affect A total of 33 minutes of time were spent preparing this complex discharge summary. Patient was discharged on 07/15/22 at 11:04. Patient Condition at Discharge: Stable Plan - Discharge Summary Discharge Rx Participant: No New Discharge Prescriptions: New Sennosides [Senokot] 8.6 mg PO DAILY PRN #60 tab PRN Reason: Constipation Continue Topiramate [Topamax] 50 mg PO BID traMADol HCl [Ultram] 50 mg PO TID PRN PRN Reason: Pain Rivaroxaban [Xarelto] 10 mg PO HS Gabapentin 900 mg PO TID Discharge Medication List Rivaroxaban [Xarelto] 10 mg PO HS 10/26/20 [History] Gabapentin 900 mg PO TID 07/21/21 [History] Topiramate [Topamax] 50 mg PO BID 07/21/21 [History] traMADol HCl [Ultram] 50 mg PO TID PRN 07/13/22 [History] Sennosides [Senokot] 8.6 mg PO DAILY PRN #60 tab 07/15/22 [Rx] Follow up Appointment(s)/Referral(s): Gopal Bryant MD [Primary Care Provider] - 1-2 days Michelet Randall MD [Medical Doctor] - 1 Week Patient Instructions/Handouts: Conversion Disorder (DC) Activity/Diet/Wound Care/Special Instructions: Please see your neurologist and therapist as soon as possible. You may need reduction in gabapentin dose, and change in your migraine medication. You also may need psychotherapy. Discharge Disposition: HOME SELF-CARE
== END 2022-07-15 13:17 | disposition home or self-care (01) | DRG 103 ==
LOC: EC 15:49 → 3SCARD 18:05
PROVIDERS: ADMIT Student in an Organized Health Care Education/Training Program; ATTEND Student in an Organized Health Care Education/Training Program
DX: G43.909 Migraine, unspecified, not intractable, without status migrainosus (principal); D68.9 Coagulation defect, unspecified; F98.5 Adult onset fluency disorder; R53.1 Weakness; M54.9 Dorsalgia, unspecified; G89.29 Other chronic pain; F32.A Depression, unspecified; F41.9 Anxiety disorder, unspecified; F41.0 Panic disorder [episodic paroxysmal anxiety]; K59.00 Constipation, unspecified; Z79.01 Long term (current) use of anticoagulants; Z79.899 Other long term (current) drug therapy; Z86.711 Personal history of pulmonary embolism; Z86.718 Personal history of other venous thrombosis and embolism; Z96.82 Presence of neurostimulator; Z95.828 Presence of other vascular implants and grafts; Z88.0 Allergy status to penicillin; Z88.2 Allergy status to sulfonamides
CPT/HCPCS: 36415; 70450; 70496; 70498; 80053; 82550; 82607; 82746; 83036; 84146; 84443; 84484; 85025; 85610; 85730; 94760; 99285

== ENCOUNTER 2023-02-19 10:09 | Emergency (ER) | payer BC, OTHER ==
--- NOTE | 2023-02-19 10:35 | ED ---
General Adult HPI - General Source: patient, RN notes reviewed Mode of arrival: ambulatory Limitations: no limitations <Augusto Machado - Last Filed: 02/19/23 10:31> <Mohamud Doherty - Last Filed: 02/19/23 14:19> - General Stated complaint: headache,joint pain Time Seen by Provider: 02/19/23 10:31 - History of Present Illness Initial comments: 37-year-old male presents emergency dept chief complaint of concern for possible blood clot. Patient has a strong history in which she has had spontaneous blood clots and is on chronic anticoagulation. He states that he was on Xarelto but due to the cost he discontinued it for over one month. He has not developed joint, extremity swelling and pain (Augusto Machado) Dictation was produced using [employer] dictation software. please excuse any grammatical, word or spelling errors. Chief Complaint: 37-year-old male with unknown hypercoagulable disorder presents to ER with headache suspicion for blood clot occurring History of Present Illness: 37-year-old male he has not been taking any coagulation medications due to high cost of medication. States that he had a headache for one week. For he is having blood clot in his brain. He has had 4 spontaneous blood clots in his lifetime. He has a indwelling IVC filter. States that he has a mild headache to his frontal head. Feels like his face is stuffy. Denies any vision changes. No numbness and paresthesias to arms or legs. Patient is worried that he has a blood clot intracranially The ROS documented in this emergency department record has been reviewed and confirmed by me. Those systems with pertinent positive or negative responses have been documented in the HPI. All other systems are other negative and/or noncontributory. (Mohamud Doherty) - Related Data Home Medications Medication Instructions Recorded Confirmed Rivaroxaban [Xarelto] 10 mg PO HS 10/26/20 02/19/23 Allergies Allergy/AdvReac Type Severity Reaction Status Date / Time Penicillins Allergy Anaphylaxis Verified 02/19/23 10:30 Sulfa (Sulfonamide Allergy Itching Verified 02/19/23 13:57 Antibiotics) Review of Systems ROS Other: All systems not noted in ROS Statement are negative. <Augusto Machado - Last Filed: 02/19/23 10:31> ROS Other: All systems not noted in ROS Statement are negative. <Mohamud Doherty - Last Filed: 02/19/23 14:19> ROS Statement: Those systems with pertinent positive or pertinent negative responses have been documented in the HPI. Past Medical History Past Medical History: Pulmonary Embolus (PE) Additional Past Medical History / Comment(s): 2011 BLOOD CLOT AFTER HEMORRHOID SX, negative hypercoagulability workup, seasonal ALLERGIES. History of Any Multi-Drug Resistant Organisms: None Reported Additional Past Surgical History / Comment(s): IVC filter Past Anesthesia/Blood Transfusion Reactions: Motion Sickness Past Psychological History: Anxiety, Depression Smoking Status: Former smoker Past Alcohol Use History: None Reported Past Drug Use History: None Reported - Past Family History Father History Unknown: Yes Mother Family Medical History: Cancer Additional Family Medical History / Comment(s): "LACK OF ABILTY TO CLOT" (NOT FACTOR V), SMOKER, ALCOHOLIC, ANX/DEPRESSION, GLAUCOMA, BREAST CA, <Augusto Machado - Last Filed: 02/19/23 10:31> General Exam Limitations: no limitations <Augusto Machado - Last Filed: 02/19/23 10:31> <Mohamud Doherty - Last Filed: 02/19/23 14:19> - General Exam Comments Initial Comments: Visual Physical Exam Vital signs reviewed General: Well-appearing, nontoxic, no acute distress. Head: Normocephalic, atraumatic Eyes: PERRLA, EOMI ENT: Airway patent Chest: Nonlabored breathing Skin: No visual rash, normal skin tone Neuro: Alert and oriented 3 Musculoskeletal: No gross abnormalities (Augusto Machado) PHYSICAL EXAM: General Impression: Alert and oriented x3, not in acute distress HEENT: Normocephalic atraumatic, extra-ocular movements intact, pupils equal and reactive to light bilaterally, mucous membranes moist. Cardiovascular: Heart regular rate and rhythm Chest: Able to complete full sentences, no retractions, no tachypnea Abdomen: abdomen soft, non-tender, non-distended, no organomegaly Musculoskeletal: Pulses present and equal in all extremities, no peripheral edema Motor: no focal deficits noted Neurological: CN II-XII grossly intact, no focal motor or sensory deficits noted Skin: Intact with no visualized rashes Psych: Normal affect and mood (Mohamud Doherty) Course Vital Signs 02/19/23 10:28 Temperature 98.9 F Pulse Rate 92 Respiratory 18 Rate Blood Pressure 148/95 O2 Sat by Pulse 97 Oximetry Medical Decision Making <Augusto Machado - Last Filed: 02/19/23 10:31> - Lab Data Result diagrams: 02/19/23 10:41 02/19/23 10:41 <Mohamud Doherty - Last Filed: 02/19/23 14:19> - Medical Decision Making I performed a quick note portion of this chart signed Augusto Machado PA-C (Augusto Machado) Was pt. sent in by a medical professional or institution (, PA, [employer] [employer], urgent care, hospital, or correction...) When possible be specific @ -No Did you speak to anyone other than the patient for history (EMS, parent, family, police, friend...)? What history was obtained from this source @ -No Did you review nursing and triage notes (agree or disagree)? Why? @ -I reviewed and agree with nursing and triage notes Were old charts reviewed (outside hosp., previous admission, EMS record, old EKG, old radiological studies, urgent care reports/EKG's, correction records)? Report findings @ -No old charts were reviewed Differential Diagnosis (chest pain, altered mental status, abdominal pain women, abdominal pain men, vaginal bleeding, musculoskeletal, weakness, fever, dyspnea, syncope, headache, dizziness, GI bleed, back pain, seizure, CVA, palpatations, mental health)? @ -Differential Headache: Migraine, tension, cluster, carbon monoxide, central venous thrombosis, pension karma temporal arteritis, acute closure glaucoma, intercranial hemorrhage, mastoiditis, sinusitis, head injury, this is not meant to be an all-inclusive list. EKG interpreted by me (3pts min.). @ -None done X-rays interpreted by me (1pt min.). @ -None done CT interpreted by me (1pt min.). @ -CT brain without contrast shows no acute processes. U/S interpreted by me (1pt. min.). @ -None done What testing was considered but not performed or refused? (CT, X-rays, U/S, labs)? Why? @ -None What meds were considered but not given or refused? Why? @ -None Did you discuss the management of the patient with other professionals (professionals i.e. , PA, LEM[employer]OWER, lab, RT, psych nurse, long term care social worker, home health speech therapist, teacher, workplace rehabilitation officer, child support case officer)? Give summary @ -No Was smoking cessation discussed for >3mins.? @ -No Was critical care preformed (if so, how long)? @ -No Were there social determinants of health that impacted care today? How? (Homelessness, low income, unemployed, alcoholism, drug addiction, transportation, low edu. Level, literacy, decrease access to med. care, fpc, rehab)? @ -No Was there de-escalation of care discussed even if they declined (Discuss DNR or withdrawal of care, Hospice)? DNR status @ -No What co-morbidities impacted this encounter? (DM, HTN, Smoking, COPD, CAD, Cancer, CVA, ARF, Chemo, Hep., AIDS, mental health diagnosis, sleep apnea, morbid obesity)? @ -Unknown hypercoagulable disorder. Was patient admitted / discharged? Hospital course, mention meds given and route, prescriptions, significant lab abnormalities, going to OR and other pertinent info. @ -37-year-old male presents with headache. He has history of hypercoagulable disease he is suppose to be on anechoic moist medications however due to cost of medication he is not taking anything. He has not been taking his and accommodation medications due to cost. Vital signs stable. Physical examination is benign. CT brain is negative. CT contrast shows no acute processes. Patient advised follow-up with urologist. Does have a history of headaches. Undiagnosed new problem with uncertain prognosis? @ -No Drug Therapy requiring intensive monitoring for toxicity (Heparin, Nitro, Insulin, Cardizem)? @ -No Were any procedures done? @ -No Diagnosis/symptom? Acute, or Chronic, or Acute on Chronic? Uncomplicated (without systemic symptoms) or Complicated (systemic symptoms)? @ -headache Side effects of treatment? @ -No Exacerbation, Progression, or Severe Exacerbation? @ -No Poses a threat to life or bodily function? How? (Chest pain, USA, ID, pneumonia, PE, COPD, DKA, ARF, appy, cholecystitis, CVA, Diverticulitis, Homicidal, Suicidal, threat to staff... and all critical care pts) @ -No (Mohamud Doherty) - Lab Data Lab Results 02/19/23 02/19/23 02/19/23 Range/Units 10:41 10:41 10:41 WBC 11.1 H (3.8-10.6) k/uL RBC 5.12 (4.30-5.90) m/uL Hgb 16.1 (13.0-17.5) gm/dL Hct 46.5 (39.0-53.0) % MCV 90.9 (80.0-100.0) fL MCH 31.4 (25.0-35.0) pg MCHC 34.6 (31.0-37.0) g/dL RDW 13.3 (11.5-15.5) % Plt Count 176 (150-450) k/uL MPV 8.5 Neutrophils % 77 % Lymphocytes % 13 % Monocytes % 8 % Eosinophils % 0 % Basophils % 0 % Neutrophils # 8.5 H (1.3-7.7) k/uL Lymphocytes # 1.4 (1.0-4.8) k/uL Monocytes # 0.9 (0-1.0) k/uL Eosinophils # 0.0 (0-0.7) k/uL Basophils # 0.0 (0-0.2) k/uL PT 10.7 (10.0-12.5) sec INR 1.0 (<1.2) APTT 26.2 (22.0-30.0) sec D-Dimer 0.41 (<0.60) mg/L FEU Sodium 140 (137-145) mmol/L Potassium 4.3 (3.5-5.1) mmol/L Chloride 106 (98-107) mmol/L Carbon Dioxide 23 (22-30) mmol/L Anion Gap 11 mmol/L BUN 8 L (9-20) mg/dL Creatinine 0.83 (0.66-1.25) mg/dL Est GFR (CKD-EPI)AfAm >90 (>60 ml/min/1.73 sqM) Est GFR (CKD-EPI)NonAf >90 (>60 ml/min/1.73 sqM) Glucose 106 H (74-99) mg/dL Calcium 9.4 (8.4-10.2) mg/dL Total Bilirubin 2.6 H (0.2-1.3) mg/dL AST 66 H (17-59) U/L ALT 97 H (4-49) U/L Alkaline Phosphatase 110 (38-126) U/L Total Protein 8.0 (6.3-8.2) g/dL Albumin 4.4 (3.5-5.0) g/dL Disposition <Augusto Machado - Last Filed: 02/19/23 10:31> Is patient prescribed a controlled substance at d/c from ED?: No Time of Disposition: 14:19 <Mohamud Doherty - Last Filed: 02/19/23 14:19> Clinical Impression: Headache Disposition: HOME SELF-CARE Condition: Good Instructions (If sedation given, give patient instructions): Acute Headache (ED) Referrals: Gopal Bryant MD [Primary Care Provider] - 1-2 days
[2023-02-19 10:37] VITALS: TEMP 98.9
[2023-02-19 10:49] LABS: Basophils % (A) 0 %; Eosinophils % (A) 0 %; HCT 46.5 % (39.0-53.0); HGB 16.1 gm/dL (13.0-17.5); Lymphocytes # (A) 1.4 k/uL (1.0-4.8); Lymphocytes % (A) 13 %; MCH 31.4 pg (25.0-35.0); MCHC 34.6 g/dL (31.0-37.0); MCV 90.9 fL (80.0-100.0); Mean Platelet Volume 8.5; Monocytes # (A) 0.9 k/uL (0-1.0); Monocytes % (A) 8 %; Neutrophils # (A) 8.5 k/uL (1.3-7.7); Neutrophils % (A) 77 %; Platelet Count 176 k/uL (150-450); RBC 5.12 m/uL (4.30-5.90); RDW 13.3 % (11.5-15.5); WBC 11.1 k/uL (3.8-10.6)
[2023-02-19 11:07] LABS: Partial Thromboplastin Time 26.2 sec (22.0-30.0); Prothrombin Time 10.7 sec (10.0-12.5)
[2023-02-19 11:20] LABS: ALT 97 U/L (4-49); AST 66 U/L (17-59); African American GFR (CKD) >90 (>60 ml/min/1.73 sqM); Albumin 4.4 g/dL (3.5-5.0); Alkaline Phosphatase 110 U/L (38-126); Anion Gap 11 mmol/L; Blood Urea Nitrogen 8 mg/dL (9-20); Calcium 9.4 mg/dL (8.4-10.2); Carbon Dioxide 23 mmol/L (22-30); Chloride 106 mmol/L (98-107); Glucose 106 mg/dL (74-99); Non-African American GFR(CKD) >90 (>60 ml/min/1.73 sqM); Potassium 4.3 mmol/L (3.5-5.1); Sodium 140 mmol/L (137-145); Total Bilirubin 2.6 mg/dL (0.2-1.3)
--- NOTE | 2023-02-19 11:27 | CT ---
EXAMINATION TYPE: CT brain wo con CT DLP: 1100.4 mGycm, Automated exposure control for dose reduction was used. DATE OF EXAM: 02/19/2023 11:22 AM COMPARISON: CT brain 07/13/2022, CT brain C-spine 06/27/2022 CLINICAL INDICATION:Male, 37 years old with history of headache, Headache TECHNIQUE: Brain: Multiple axial CT images of the brain were obtained without IV contrast. Coronal and sagittal reformats reviewed. FINDINGS: Brain: Extra-axial spaces: No abnormal extra-axial fluid collections. Ventricular system: Within normal limits Cerebral parenchyma: No acute intraparenchymal hemorrhage or mass effect. The valdez-white junction is well differentiated. Cerebellum: Unremarkable. Mass effect: No evidence of midline shift. Intracranial vasculature: unremarkable Soft tissues: Normal. Calvarium/osseous structures: No depressed skull fracture. Paranasal sinuses and mastoid air cells: Clear Visualized orbits: Orbital contents are intact. IMPRESSION: No acute intracranial process.
[2023-02-19] MEDS ORDERED: RX INFO: IV CONTRAST WAS GIVEN 1 EACH MISC MISCELLANE PRN (12:22)
--- NOTE | 2023-02-19 13:46 | CT ---
EXAMINATION TYPE: CT brain w con DATE OF EXAM: 02/19/2023 COMPARISON: CT scan 02/19/2023 HISTORY: Suspect Cyst CT DLP: 1100.4 mGycm Automated exposure control for dose reduction was used. CONTRAST: CT scan of the head is performed with IV Contrast, patient injected with 100 ml mL of Isovue 370. FINDINGS: There is no abnormal enhancing mass or midline shift identified. The ventricles and sulci are within normal limits in size. The globes are intact and the visualized sinuses are clear. Visualized dural venous sinus has a normal appearance. IMPRESSION: Negative contrast enhanced head CT exam. If there is high clinical concern for venous sinus thrombosi s or cavernous sinus thrombosis than correlation with MRI and MRV would be suggested.
[2023-02-19 14:47] VITALS: BP 137/87; PULSE 98; RESP 16
== END 2023-02-19 14:32 | disposition home or self-care (01) ==
LOC: EC 10:09
DX: R51.9 Headache, unspecified (principal); Z86.59 Personal history of other mental and behavioral disorders; Z87.891 Personal history of nicotine dependence; Z88.0 Allergy status to penicillin; Z88.2 Allergy status to sulfonamides
CPT/HCPCS: 99284 ×2; 36415; 85379; 80053; 85025; 85610; 85730; 70450; 70460; Q9967

== ENCOUNTER 2023-05-21 10:27 | Emergency (ER) | payer BC, OTHER ==
--- NOTE | 2023-05-21 11:03 | ED ---
Lower Extremity Injury HPI - General Chief Complaint: Extremity Injury, Lower Stated Complaint: R knee injury Time Seen by Provider: 05/21/23 10:41 Source: patient, RN notes reviewed Mode of arrival: ambulatory Limitations: no limitations - History of Present Illness Initial Comments: 37-year-old male presents emergency department chief complaint of right knee pain. He states has been going on for several months. He states it started after he went to kick a large ball he states he felt something pop, burning sensation. He states it improved after a few days of icing and rest. He states now he has on and off issues he states he feels like his knee hyperextends. He states it feels very loose and is having worsening symptoms. He did have an x- ray at urgent care was advised that he has a follow-up with orthopedics for an MRI. Patient states he cannot get in for several weeks and he called his PCP who advised him come to emergency department. - Related Data Home Medications Medication Instructions Recorded Confirmed Rivaroxaban [Xarelto] 10 mg PO HS 10/26/20 02/19/23 Allergies Allergy/AdvReac Type Severity Reaction Status Date / Time Penicillins Allergy Anaphylaxis Verified 05/21/23 10:38 Sulfa (Sulfonamide Allergy Itching Verified 05/21/23 10:38 Antibiotics) Review of Systems ROS Statement: Those systems with pertinent positive or pertinent negative responses have been documented in the HPI. ROS Other: All systems not noted in ROS Statement are negative. Past Medical History Past Medical History: Pulmonary Embolus (PE) Additional Past Medical History / Comment(s): 2010 BLOOD CLOT AFTER HEMORRHOID SX, negative hypercoagulability workup, seasonal ALLERGIES. History of Any Multi-Drug Resistant Organisms: None Reported Additional Past Surgical History / Comment(s): IVC filter Past Anesthesia/Blood Transfusion Reactions: Motion Sickness Past Psychological History: Anxiety, Depression Smoking Status: Former smoker Past Alcohol Use History: None Reported Past Drug Use History: None Reported - Past Family History Father History Unknown: Yes Mother Family Medical History: Cancer Additional Family Medical History / Comment(s): "LACK OF ABILTY TO CLOT" (NOT FACTOR V), SMOKER, ALCOHOLIC, ANX/DEPRESSION, GLAUCOMA, BREAST CA, General Exam Limitations: no limitations General appearance: alert, in no apparent distress Head exam: Present: atraumatic, normocephalic, normal inspection Eye exam: Present: normal appearance, PERRL, EOMI. Absent: scleral icterus, conjunctival injection, periorbital swelling Respiratory exam: Present: normal lung sounds bilaterally. Absent: respiratory distress, wheezes, rales, rhonchi, stridor Cardiovascular Exam: Present: regular rate, normal rhythm, normal heart sounds. Absent: systolic murmur, diastolic murmur, rubs, gallop, clicks Extremities exam: Present: other (Right knee full range of motion mild laxity, neurovascular intact nontender) Course Vital Signs 05/21/23 05/21/23 10:36 11:39 Temperature 98.6 F 98.2 F Pulse Rate 85 80 Respiratory 16 16 Rate Blood Pressure 149/95 138/90 O2 Sat by Pulse 98 99 Oximetry Medical Decision Making - Medical Decision Making Was pt. sent in by a medical professional or institution (, [facility]LE[facility], CORN DETASSELER MACHINE OPERATOR, urgent care, hospital, or longterm...) When possible be specific @ -No Did you speak to anyone other than the patient for history (EMS, parent, family, police, friend...)? What history was obtained from this source @ -No Did you review nursing and triage notes (agree or disagree)? Why? @ -I reviewed and agree with nursing and triage notes Were old charts reviewed (outside hosp., previous admission, EMS record, old EKG, old radiological studies, urgent care reports/EKG's, longterm records)? Report findings @ -No old charts were reviewed Differential Diagnosis (chest pain, altered mental status, abdominal pain women, abdominal pain men, vaginal bleeding, weakness, fever, dyspnea, syncope, headache, dizziness, GI bleed, back pain, seizure, CVA, palpatations, mental health, musculoskeletal)? @ -Internal derangement knee, knee strain, knee sprain, meniscus injury EKG interpreted by me (3pts min.). @ -[None X-rays interpreted by me (1pt min.). @ -None done CT interpreted by me (1pt min.). @ -None done U/S interpreted by me (1pt. min.). @ -None done What testing was considered but not performed or refused? (CT, X-rays, U/S, labs)? Why? @ -[Consider MRI though this will be completed outpatient as a nonemergent, patient had prior x-ray refused What meds were considered but not given or refused? Why? @ -None Did you discuss the management of the patient with other professionals (professionals i.e. , PA, CORN DETASSELER MACHINE OPERATOR, lab, RT, psych nurse, rn social services, auto repair shop manager, teacher, state patrol officer, major case detective)? Give summary @ -No Was smoking cessation discussed for >3mins.? @ -No Was critical care preformed (if so, how long)? @ -No Were there social determinants of health that impacted care today? How? (Homelessness, low income, unemployed, alcoholism, drug addiction, transportation, low edu. Level, literacy, decrease access to med. care, retirement, rehab)? @ -No Was there de-escalation of care discussed even if they declined (Discuss DNR or withdrawal of care, Hospice)? DNR status @ -No What co-morbidities impacted this encounter? (DM, HTN, Smoking, COPD, CAD, Cancer, CVA, ARF, Chemo, Hep., AIDS, mental health diagnosis, sleep apnea, morbid obesity)? @ -None Was patient admitted / discharged? Hospital course, mention meds given and route, prescriptions, significant lab abnormalities, going to OR and other pertinent info. @ -Discharged patient had an appointment made with orthopedics in the emergency department. Patient discharged in stable condition with follow-up return pressure discussed. Undiagnosed new problem with uncertain prognosis? @ -No Drug Therapy requiring intensive monitoring for toxicity (Heparin, Nitro, Insulin, Cardizem)? @ -No Were any procedures done? @ -No Diagnosis/symptom? @ -[Knee injury Acute, or Chronic, or Acute on Chronic? @ -Acute Uncomplicated (without systemic symptoms) or Complicated (systemic symptoms)? @ -[Uncomplicated Side effects of treatment? @ -[No Exacerbation, Progression, or Severe Exacerbation? @ -No Poses a threat to life or bodily function? How? (Chest pain, USA, [place], pneumonia, PE, COPD, DKA, ARF, appy, cholecystitis, CVA, Diverticulitis, Homicidal, Claudia cidal, threat to staff... and all critical care pts) @ -No Disposition Clinical Impression: Knee injury Disposition: HOME SELF-CARE Condition: Stable Instructions (If sedation given, give patient instructions): Knee Pain (ED) Additional Instructions: Please return to the Emergency Department if symptoms worsen or any other concerns. Is patient prescribed a controlled substance at d/c from ED?: No Referrals: Gopal Bryant MD [Primary Care Provider] - 1-2 days Hari Santos DO [Doctor of Osteopathic Medicine] - 05/29/23 1:40 pm (Please complete new patient paperwork that is being mailed to you and bring indurande and ID card to appointment.) Augusto Ardon DO [Doctor of Osteopathic Medicine] - (Please call billing office to speak with them. Appointment was unable to be made. ) Time of Disposition: 11:35
[2023-05-21 11:32] VITALS: RESP 16
[2023-05-21 12:00] VITALS: BP 138/90; PULSE 80; TEMP 98.2
== END 2023-05-21 11:40 | disposition home or self-care (01) ==
LOC: EC 10:27
DX: S89.91XA Unspecified injury of right lower leg, initial encounter (principal); Z86.59 Personal history of other mental and behavioral disorders; Z87.891 Personal history of nicotine dependence; Z88.0 Allergy status to penicillin; Z88.2 Allergy status to sulfonamides; W21.00XA Struck by hit or thrown ball, unspecified type, initial encounter
CPT/HCPCS: 99283